=== PATIENT | male | born 1930 | race Caucasian/White ===

== ENCOUNTER 2017-01-14 18:41 | Inpatient (IN) | payer OTHER ==
--- NOTE | 2017-01-14 18:43 | PDOC ---
History of Present Illness - General History Source: EMS Exam Limitations: Dementia, Other - History of Present Illness Initial Comments: 01/14/17 18:47 The patient is a 86 year old male, from [facility], with a significant past medical history of hypertension, UTI, stage 3 chronic kidney disease, DVT, and Alzheimer's dementia who presents to the ED, via EMS, with coffee ground emesis. As per EMS, the patient was found with coffee ground emesis and in respiratory distress. Patient also presents to the ED with a distended abdomen, diaphoresis and is tachycardic. HPI is limited secondary to patients dementia and limited history from EMS and [facility]. <Moses Ordonez - Last Filed: 01/14/17 20:21> <Angelique Lazo - Last Filed: 01/14/17 20:47> - General Stated Complaint: SOB Time Seen by Provider: 01/14/17 18:43 Past History <Moses Ordonez - Last Filed: 01/14/17 20:21> <Angelique Lazo - Last Filed: 01/14/17 20:47> - Past Medical History Allergies/Adverse Reactions: Allergies Allergy/AdvReac Type Severity Reaction Status Date / Time No Known Allergies Allergy Verified 01/14/17 18:43 Home Medications: Ambulatory Orders Acetaminophen [Tylenol] 2 tab GT BID 01/14/17 Heparin - 5,000 unit SQ BID 01/14/17 Magnesium Hydrox 2400MG/30Ml [Milk of Magnesia -] 30 ml GT HS 01/14/17 Mirtazapine [Remeron -] 15 mg GT DAILY 01/14/17 Pantoprazole Sodium [Protonix] 40 mg GT DAILY 01/14/17 Sennosides [Senna] 2 tab GT HS 01/14/17 Zinc Sulfate [Zinc-220] 220 mg GT DAILY 01/14/17 Review of Systems - Review of Systems Able to Perform ROS?: No Comments:: 01/14/17 18:47 Unable to perform ROS secondary to patients dementia. <Moses Ordonez - Last Filed: 01/14/17 20:21> *Physical Exam - Physical Exam Comments: 01/14/17 18:48 GENERAL: + distressed Well developed, well nourished. Awake and alert. HEENT: Normocephalic, atraumatic. PERRLA, EOMI. No conjunctival pallor. Sclera are non- icteric. Moist mucous membranes. Oropharynx is clear. NECK: Supple. Full ROM. No JVD. Carotid pulses 2+ and symmetric, without bruits. No thyromegaly. NCo lymphadenopathy. CARDIOVASCULAR: + tachycardic Regular rhythm. No murmurs, rubs, or gallops. Distal pulses are 2+ and symmetric. PULMONARY: + rales No wheezing or rhonchi. ABDOMINAL:+ distended abdomen, coffee ground emesis. Non-tender. No rebound or guarding. No organomegaly. Normoactive bowel sounds. MUSCULOSKELETAL Normal range of motion at all joints. No bony deformities or tenderness. No CVA tenderness. EXTREMITIES: No cyanosis. No clubbing. No edema. No calf tenderness. SKIN: Warm and dry. Normal capillary refill. No rashes. No jaundice. <Moses Ordonez - Last Filed: 01/14/17 20:21> ED Treatment Course - LABORATORY CBC & Chemistry Diagram: 01/14/17 18:35 01/14/17 18:35 - RADIOLOGY Radiograph Interpretation: 01/14/17 20:21 EXAM: CT abdomen pelvis without contrast Findings: Atelectasis and scarring in lung bases with bronchial wall thickening. No pleural effusions. Large hiatal hernia. A few indeterminate small low attenuation hepatic lesions Subtle edema around the contracted gallbladder. Query cholecystitis? The pancreas, adrenal glands, and spleen are grossly unremarkable. Small splenic granuloma. G-tube in the stomach. Moderate left perinephric edema. No renal or urinary calculi. No AAA. Moya catheter in the bladder. Mild prostate enlargement. *Large left inguinal hernia containing a short segment of nonobstructed colon. Moderate stool in the distal colon and rectum with mild adjacent edema. Query mild stercoral proctocolitis? No evidence of diverticulitis, appendicitis, small bowel obstruction, free fluid , or free air. Reported by: Imaging employment consultant <Moses Ordonez - Last Filed: 01/14/17 20:21> - LABORATORY CBC & Chemistry Diagram: 01/14/17 18:35 01/14/17 18:35 <Angelique Lazo - Last Filed: 01/14/17 20:47> Medical Decision Making - Critical Care Time Total Critical Care Time (minutes): 90 Critical Care Statement: The care of this patient involved high complexity decision making to prevent further life threatening deterioration of the patient 's condition and/or to evaluate & treat vital organ system(s) failure or risk of failure. - Medical Decision Making 01/14/17 19:59 86-year-old male brought in by ambulance from [facility] in acute distress. Patient is tachycardic in the 150s, initially hypotensive. Rectal temp 100.5. Then, nonverbal 86-year-old male in acute distress, diaphoretic, tachypneic and tachycardic + coffee ground emesis , black blood dried on lips Head no signs of acute trauma Eyes macie neck supple lungs +rales cvs tachycardia abd distended, hard distended bladder G tube intact ext no erythema,no edema,no cellulitis neuro alert,nonverbal 01/14/17 20:02 moya placed 1 liter urine obtained cxr no chf evident <Angelique Lazo - Last Filed: 01/14/17 20:47> *DC/Admit/Observation/Transfer - Attestations Scribe Attestion: 01/14/17 18:48 Documentation prepared by Moses Ordonez, acting as medical superintendent for Angelique Lazo MD <Moses Ordonez - Last Filed: 01/14/17 20:21> - Discharge Dispostion Admit: No <Angelique Lazo - Last Filed: 01/14/17 20:47> Diagnosis at time of Disposition: Dehydration, Urinary retention Aspiration pneumonia Qualifiers: Aspiration pneumonia type: unspecified Laterality: right Lung location: lower lobe of lung Qualified Code(s): J69.0 - Pneumonitis due to inhalation of food and vomit GI bleed Qualifiers: GI bleed type/associated pathology: gastrointestinal hemorrhage with hematemesis Qualified Code(s): K92.0 - Hematemesis Constipation Qualifiers: Constipation type: unspecified constipation type Qualified Code(s): K59.00 - Constipation, unspecified - Referrals Referrals: Domo Cortez [Primary Care Provider] -
[2017-01-14] MEDS ORDERED: ONDANSETRON 4 MG/2 ML VIAL IVPUSH ONE (18:45)
[2017-01-14 18:49] VITALS: BMI 16.6
[2017-01-14] MEDS ORDERED: ACETAMINOPHEN INJECTION 100 ML IVPB ONE (18:50)
[2017-01-14] MEDS ORDERED: PANTOPRAZOLE SODIUM 40 MG VIAL IVPUSH ONE (18:56)
[2017-01-14 18:57] LABS: BASOPHIL 0.1 % (0-2.0); MCHC 33.7 g/dl (32.0-35.9); MEAN PLT VOLUME 9.3 fl (7.5-11.1); NEUTROPHILS 82.9 % (42.8-82.8); PLATELET COUNT 395 K/MM3 (134-434); RDW 16.8 % (11.9-15.9); WHITE BLOOD COUNT 19.6 K/mm3 (4.0-10.0)
[2017-01-14] MEDS ORDERED: ONDANSETRON 4 MG/2 ML VIAL ONE (19:01)
[2017-01-14] MEDS ORDERED: PANTOPRAZOLE SODIUM 40 MG/100 ML BAG IVPB ONE (19:01)
[2017-01-14 19:02] LABS: VENOUS PH 7.44 (7.32-7.42)
[2017-01-14 19:03] LABS: VENOUS BLOOD GAS HCO3 23.6 meq/L (19-25)
[2017-01-14 19:14] LABS: URINE APPEARANCE SLCLOUDY; URINE BILIRUBIN NEGATIVE (NEGATIVE); URINE BLOOD NEGATIVE (NEGATIVE); URINE COLOR YELLOW; URINE GLUCOSE (UA) NEGATIVE (NEGATIVE); URINE KETONE NEGATIVE (NEGATIVE); URINE NITRITE NEGATIVE (NEGATIVE); URINE PROTEIN NEGATIVE (NEGATIVE); URINE UROBILINOGEN NEGATIVE mg/dL (0.2-1.0)
[2017-01-14 19:15] LABS: INR 1.12 (0.82-1.09); PROTHROMBIN TIME (PATIENT) 12.7 SEC (9.98-11.88)
[2017-01-14] MEDS ORDERED: VANCOMYCIN 1,000 MG in DEXTROSE 5%-WATER - 500 ML IVPB STA (19:17)
[2017-01-14 19:18] LABS: ACTIVATED PTT 29.8 SECONDS (26.9-34.4)
[2017-01-14] MEDS ORDERED: PIPERACIL/TAZOB 3.375 GM 3.375 GM/50 ML PREMIX IVPB ONE (19:19)
[2017-01-14] MEDS ORDERED: ACETAMINOPHEN 1000 MG/100 ML VIAL (NON FORMULARY) IVPB ONE (19:20)
[2017-01-14 19:26] LABS: ALBUMIN 2.8 g/dl (3.4-5.0); ANION GAP 13 (8-16); BILIRUBIN,TOTAL 0.6 mg/dL (0.2-1.0); CALCIUM 9.4 mg/dL (8.5-10.1); CO2 22 mmol/L (21-32); CREATININE 2.1 mg/dL (0.7-1.3); GLUCOSE,RANDOM 172 mg/dL (74-106); SGOT/AST 24 U/L (15-37); SGPT/ALT 68 U/L (12-78); TOT PROT 6.4 g/dl (6.4-8.2)
[2017-01-14 19:28] LABS: ALK PHOS 158 U/L (45-117); CPK 56 IU/L (39-308)
[2017-01-14 19:38] LABS: ARTERIAL BLOOD GAS BASE EXCESS -0.3 meq/l (-2-2); ARTERIAL BLOOD GAS PO2 74.2 mmHg (68-100); ARTERIAL BLOOD GAS pH 7.48 (7.35-7.45)
[2017-01-14 19:40] LABS: ALLENS TEST POSITIVE; ART PUNCT SITE LEFT RADIAL; LPM/O2% 100%; PT. ON O2? YES
[2017-01-14] MEDS ORDERED: VANCOMYCIN 1 GRAM (PRE-DOCKED) 1,000 MG/250 ML BAG IVPB ONE (19:44)
[2017-01-14] MEDS ORDERED: PIPERACILLIN/TAZOB 3.375 GM 3.375 GM/50 ML BAG IVPB ONE (19:44)
[2017-01-14] MEDS ORDERED: SODIUM CHLORIDE 1,000 ML IV ONE (19:53)
[2017-01-14] MEDS ORDERED: SODIUM CHLORIDE 500 ML IV ONE (20:48)
--- NOTE | 2017-01-14 22:05 | HP ---
CHIEF COMPLAINT: coffe ground emesis PCP: [facility] HISTORY OF PRESENT ILLNESS: This is an 86 year old male resident of [facility] who presented to the ED with a report of coffee ground emesis. Pt was noted to be febrile and tachypneic upon arrival and BP dropped shortly after arrival. Pt appears to be nonverbal, history is limited and obtained from [facility] chart. Discussed with [facility] staff who state patient appeared to be in his usual state of health until he vomited and that precipitated his ED visit. They are unsure when his last BM was and deny any recent cough or other illness. ER course was notable for: (1) WBC 19.8; lactic acid 3.4 (2) SBP dipped into 60s briefly (3) BUN 126,Cr 2.1 Recent Travel: none PAST MEDICAL HISTORY: HTN, HLD, CVA, DVT, CKD st3, BPH, UTI, senile dementia alzheimers type, schizoaffective disorder PAST SURGICAL HISTORY: unknown Social History: Smoking: unk Alcohol: unk Drugs: unk Family History: unk Allergies No Known Allergies Allergy (Verified 01/14/17 18:43) HOME MEDICATIONS: 3 Medication Instructions Recorded Acetaminophen [Tylenol] 2 tab GT BID 01/14/17 Heparin - 5,000 unit SQ BID 01/14/17 Magnesium Hydrox 2400MG/30Ml [Milk 30 ml GT HS 01/14/17 of Magnesia -] Mirtazapine [Remeron -] 15 mg GT DAILY 01/14/17 Pantoprazole Sodium [Protonix] 40 mg GT DAILY 01/14/17 Sennosides [Senna] 2 tab GT HS 01/14/17 Zinc Sulfate [Zinc-220] 220 mg GT DAILY 01/14/17 REVIEW OF SYSTEMS CONSTITUTIONAL: Present: fever Absent: chills, diaphoresis, generalized weakness, malaise, loss of appetite, weight change HEENT: Absent: rhinorrhea, nasal congestion, throat pain, throat swelling, difficulty swallowing, mouth swelling, ear pain, eye pain, visual changes CARDIOVASCULAR: Absent: chest pain, syncope, palpitations, irregular heart rate, lightheadedness , peripheral edema RESPIRATORY: Absent: cough, shortness of breath, dyspnea with exertion, orthopnea, wheezing, stridor, hemoptysis GASTROINTESTINAL: Present: abdominal distension, vomiting Absent: abdominal pain, diarrhea, constipation, melena, hematochezia GENITOURINARY: Absent: dysuria, frequency, urgency, hesitancy, hematuria, flank pain, genital pain MUSCULOSKELETAL: Absent: myalgia, arthralgia, joint swelling, back pain, neck pain SKIN: Absent: rash, itching, pallor HEMATOLOGIC/IMMUNOLOGIC: Absent: easy bleeding, easy bruising, lymphadenopathy, frequent infections ENDOCRINE: Absent: unexplained weight gain, unexplained weight loss, heat intolerance, cold intolerance NEUROLOGIC: Absent: headache, focal weakness or paresthesias, dizziness, unsteady gait, seizure, mental status changes, bladder or bowel incontinence PSYCHIATRIC: Absent: anxiety, depression, suicidal or homicidal ideation, hallucinations. PHYSICAL EXAMINATION Vital Signs - 24 hr 3 01/14/17 01/14/17 01/14/17 01/14/17 18:43 19:04 19:06 19:42 Temperature 100.5 F H 100.7 F H Pulse Rate 154 H 128 H Pulse Rate [ Apical] Respiratory 30 H 36 H Rate Blood Pressure 100/60 65/48 Blood Pressure [Right Arm] O2 Sat by Pulse 100 100 Oximetry (%) 3 01/14/17 01/14/17 01/14/17 19:54 20:22 20:33 21:11 Temperature Pulse Rate Pulse Rate [ 110 H 116 H 125 H 118 H Apical] Respiratory 28 H 32 H 36 H 26 H Rate Blood Pressure Blood Pressure 120/70 94/57 105/65 134/67 [Right Arm] O2 Sat by Pulse 97 93 L 94 L 94 L Oximetry (%) GENERAL: Awake, alert, disoriented, in mild acute distress. picking at clothing HEAD: Normal with no signs of trauma. EYES: Pupils equal, round and reactive to light, extraocular movements intact, sclera anicteric, conjunctiva clear. No lid lag. EARS, NOSE, THROAT: Ears normal, nares patent, oropharynx clear without exudates. Moist mucous membranes. NECK: Normal range of motion, supple without lymphadenopathy, JVD, or masses. old healed surgical scar left neck LUNGS: Breath sounds equal, clear to auscultation bilaterally. No wheezes, and no crackles. No accessory muscle use. HEART: Irregular rate and rhythm, normal S1 and S2 without murmur, rub or gallop. ABDOMEN: Distended, hypoactive bowel sounds, no guarding, no rebound, no masses. No hepatomegaly or splenomegaly. large left inguinal hernia, soft, non tender MUSCULOSKELETAL: Normal range of motion right side, left susannah with elbow, wrist and knee contractures noted. No bony deformities or tenderness. No CVA tenderness. UPPER EXTREMITIES: 2+ pulses, warm, well-perfused. No cyanosis. No clubbing. No peripheral edema. LOWER EXTREMITIES: 2+ pulses, warm, well-perfused. No calf tenderness. No peripheral edema. NEUROLOGICAL: Cranial nerves II-XII intact. Normal speech. Normal gait. PSYCHIATRIC: Uncooperative. mildly combative. SKIN: Warm, dry, normal turgor, no rashes noted, normal capillary refill. stage 1 noted left buttock, small stage 2, linear skin erosion noted in between buttocks. Laboratory Results - last 24 hr 3 01/14/17 01/14/17 01/14/17 18:35 18:35 18:35 WBC 19.6 H RBC 4.51 Hgb 14.0 Hct 41.5 MCV 92.0 MCH 31.0 MCHC 33.7 RDW 16.8 H Plt Count 395 MPV 9.3 Neutrophils % 82.9 H Lymphocytes % 7.8 L Monocytes % 9.2 Eosinophils % 0.0 Basophils % 0.1 PT with INR 12.70 H INR 1.12 PTT (Actin FS) 29.8 Puncture Site ABG pH ABG pCO2 at Pt Temp ABG pO2 at Pt Temp ABG HCO3 ABG O2 Sat (Measured) ABG O2 Content ABG Base Excess Jose Alfredo Test VBG pH 7.44 H POC VBG pCO2 34.9 L POC VBG pO2 42.9 Mixed VBG HCO3 23.6 Oxygen Flow Rate Sodium 140 Potassium 4.4 Chloride 105 Carbon Dioxide 22 Anion Gap 13 BUN 126 H* Creatinine 2.1 H Creat Clearance w eGFR 30.24 Random Glucose 172 H Lactic Acid 3.5 H* Calcium 9.4 Total Bilirubin 0.6 AST 24 ALT 68 Alkaline Phosphatase 158 H Creatine Kinase 56 Troponin I 0.10 H Total Protein 6.4 Albumin 2.8 L Urine Color Urine Appearance Urine pH Ur Specific [place] Urine Protein Urine Glucose (UA) Urine Ketones Urine Blood Urine Nitrite Urine Bilirubin Urine Urobilinogen Stool Occult Blood Blood Type B POSITIVE Antibody Screen Negative 3 01/14/17 01/14/17 01/14/17 18:42 19:04 19:30 WBC RBC Hgb Hct MCV MCH MCHC RDW Plt Count MPV Neutrophils % Lymphocytes % Monocytes % Eosinophils % Basophils % PT with INR INR PTT (Actin FS) Puncture Site Left radial ABG pH 7.48 H ABG pCO2 at Pt Temp 30.3 L ABG pO2 at Pt Temp 74.2 ABG HCO3 22.0 ABG O2 Sat (Measured) 96.0 ABG O2 Content 17.2 ABG Base Excess -0.3 Jose Alfredo Test Positive VBG pH POC VBG pCO2 POC VBG pO2 Mixed VBG HCO3 Oxygen Flow Rate 100% Sodium Potassium Chloride Carbon Dioxide Anion Gap BUN Creatinine Creat Clearance w eGFR Random Glucose Lactic Acid Calcium Total Bilirubin AST ALT Alkaline Phosphatase Creatine Kinase Troponin I Total Protein Albumin Urine Color Yellow Urine Appearance Slcloudy Urine pH 6.0 Ur Specific [place] 1.015 Urine Protein Negative Urine Glucose (UA) Negative Urine Ketones Negative Urine Blood Negative Urine Nitrite Negative Urine Bilirubin Negative Urine Urobilinogen Negative Stool Occult Blood Negative Blood Type Antibody Screen ECG ? afib?, irreg rhythm but rate too fast at present to determine vent rate 152, QTC [address]/T changes Radiology results EXAM: CT abdomen pelvis without contrast THIS IS A PRELIMINARY REPORT FROM [facility] DATE OF EXAM: 2017-01-14 19:08:06 REASON FOR EXAM: Lethargic. Bleed. Concern for dissection. COMPARISON: None Findings: Atelectasis and scarring in lung bases with bronchial wall thickening. No pleural effusions. Large hiatal hernia. A few indeterminate small low attenuation hepatic lesions Subtle edema around the contracted gallbladder. Query cholecystitis? The pancreas, adrenal glands, and spleen are grossly unremarkable. Small splenic granuloma. G-tube in the stomach. Moderate left perinephric edema. No renal or urinary calculi. No AAA. Moya catheter in the bladder. Mild prostate enlargement. *Large left inguinal hernia containing a short segment of nonobstructed colon. Moderate stool in the distal colon and rectum with mild adjacent edema. Query mild stercoral proctocolitis? No evidence of diverticulitis, appendicitis, small bowel obstruction, free fluid , or free air. THIS DOCUMENT HAS BEEN ELECTRONICALLY SIGNED Young Chen MD 01/14/2017 20:17 EST CXR, no apparent infiltrate or effusion, final read pending ASSESSMENT/PLAN: 86yM with PMH HTN, HLD, CVA, DVT, CKD st3, BPH, UTI, senile dementia alzheimers type, schizoaffective disorder presented to the ED s/p one episode coffee ground emesis. Sepsis - likely source urinary, urine very cloudy, await cultures and follow - ? aspiration during emesis - cont vanc and zosyn for now - ID consult - moya for strict I&O - received 1.5L NS in ED, nurse reported BP in 80s upon arrival to floor, 250cc bolus x 1 then 100cc/hr fecal retention - fleet enema x 1, will need manual manipulation if no result with enema - may need tap water enema - start miralax in am after enema - cont home senna, dc home MOM abdominal distention/coffee ground emesis - likely r/t fecal retention - on CT prelim read ? cholecystitis, consider abd sono - stool guaiac neg elevated troponin - likely due to demand/sepsis, will trend - repeat ECG in am HTN/HLD - currently off all meds, monitor BP while inpatient BPH - on no home meds. Monitor for urinary retention when moya DC dementia/alzheimer's - on no home meds, supportive care DVT PPX - deferred for now due to coffee ground emesis FEN - NS @ 100cc/hr - BMP in am - hold GT feed today, start tomorrow PM Dispo: Pt currently requires inpatient cardiac monitoring for management of his emergent condition. Visit type - Emergency Visit Emergency Visit: Yes ED Registration Date: 01/14/17 Care time: The patient presented to the Emergency Department on the above date and was hospitalized for further evaluation of their emergent condition. - New Patient This patient is new to me today: Yes Date on this admission: 01/14/17 - Critical Care Critical Care patient: No
[2017-01-14] MEDS ORDERED: SODIUM CHLORIDE 250 ML IV STA (22:09)
[2017-01-14] MEDS ORDERED: SODIUM PHOSPHATE/NA BIPHOS 133 ML ENEMA PR ONE (22:10)
[2017-01-14] MEDS: SODIUM CHLORIDE 1,000 ML IV SCH (22:19)
[2017-01-14] MEDS ORDERED: POLYETHYLENE GLYCOL 3350 119 GM BTL PO SCH (23:15)
[2017-01-14 23:17] LABS: URINE LEUK ESTERASE Negative (NEGATIVE)
[2017-01-14 23:23] LABS: ANION GAP 11 (8-16); CALCIUM 8.9 mg/dL (8.5-10.1); CO2 26 mmol/L (21-32); CREATININE 1.9 mg/dL (0.7-1.3); GLUCOSE,RANDOM 132 mg/dL (74-106)
[2017-01-14 23:24] LABS: MAGNESIUM 2.4 mg/dL (1.8-2.4)
[2017-01-14 23:25] LABS: PHOSPHOROUS 3.7 mg/dL (2.5-4.9); TROPONIN I 0.1 ng/ml (0.00-0.05)
[2017-01-14] MEDS ORDERED: SODIUM CHLORIDE 1,000 ML IV STA (23:47)
[2017-01-15] MEDS: POLYETHYLENE GLYCOL 3350 119 GM BTL GT SCH ×2 (00:25→09:14)
[2017-01-15] MEDS: PANTOPRAZOLE SODIUM 40 MG VIAL IVPUSH SCH ×2 (00:25→09:23)
[2017-01-15] MEDS ORDERED: PIPERACILLIN/TAZOB 2.25 GM/50 ML PREMIX BAG IVPB ONE (03:00)
[2017-01-15] MEDS ORDERED: PIPERACILLIN/TAZOB 2.25 GM 2.25 GM in DEXTROSE 5%-WATER - 50 ML IVPB ONE (03:45)
[2017-01-15] MEDS: ZINC OXIDE/PANTHENOL/VITAMIN E 56 GM TUBE TP SCH ×3 (05:28→21:07)
[2017-01-15 06:42] LABS: BASOPHIL 0.1 % (0-2.0); MCH 31.2 pg (25.7-33.7); MCHC 33.7 g/dl (32.0-35.9); MEAN CELL VOLUME 92.6 fl (80-96); MEAN PLT VOLUME 9.1 fl (7.5-11.1); NEUTROPHILS 70.5 % (42.8-82.8); PLATELET COUNT 164 K/MM3 (134-434); RDW 16.3 % (11.9-15.9); WHITE BLOOD COUNT 7.4 K/mm3 (4.0-10.0)
[2017-01-15 07:05] LABS: ANION GAP 7 (8-16); CALCIUM 7.6 mg/dL (8.5-10.1); CO2 26 mmol/L (21-32); CREATININE 1.3 mg/dL (0.7-1.3); GLUCOSE,RANDOM 99 mg/dL (74-106)
[2017-01-15 07:09] LABS: CPK 81 IU/L (39-308)
[2017-01-15] MEDS: ZINC SULFATE 220 MG CAPSULE (FP) GT SCH (09:12)
[2017-01-15] MEDS: ACETAMINOPHEN 650 MG/20.3 ML ORAL SOLUTION (CUPS) GT SCH ×2 (09:13→21:06)
--- NOTE | 2017-01-15 09:40 | PN ---
Progress Note, Physician Chief Complaint: Events noted no distress non verbal GT in place - Current Medication List Current Medications: Active Medications Acetaminophen (Tylenol Oral Solution -) 650 mg GT BID [facility] Last Admin: 01/15/17 09:13 Dose: 650 mg Sodium Chloride (Normal Saline -) 1,000 mls @ 100 mls/hr IV ASDIR [facility] Last Admin: 01/14/17 22:19 Dose: 100 mls/hr Mirtazapine (Remeron -) 15 mg GT HS PIPPA Pantoprazole Sodium (Protonix Iv) 40 mg IVPUSH DAILY [facility] Last Admin: 01/15/17 09:23 Dose: 40 mg Polyethylene Glycol (Miralax (For Daily Use) -) 17 gm GT DAILY [facility] Last Admin: 01/15/17 09:14 Dose: 17 grams Senna (Senna Oral Solution -) 17.6 mg GT HS PIPPA Zinc Oxide/Panthenol/Vitamin E (Balmex Cream -) 1 applic TP TID [facility] Last Admin: 01/15/17 05:28 Dose: 1 applic Zinc Sulfate (Orazinc -) 220 mg GT DAILY [facility] Last Admin: 01/15/17 09:12 Dose: 220 mg - Objective Vital Signs: Vital Signs Temperature 99 F 01/15/17 06:00 Pulse Rate 115 H 01/15/17 06:00 Respiratory Rate 20 01/15/17 06:00 Blood Pressure 132/61 01/15/17 06:00 O2 Sat by Pulse Oximetry (%) 100 01/14/17 23:09 Constitutional: Yes: No Distress, Calm Cardiovascular: Yes: Regular Rate and Rhythm Respiratory: Yes: Diminished Gastrointestinal: Yes: Normal Bowel Sounds, Soft, Other (GT+). No: Distention, Tenderness Extremities: Yes: Other (contracted) Edema: No Neurological: Yes: Alert. No: Oriented Labs: CBC, BMP 01/15/17 06:20 01/15/17 06:20 INR, PTT INR 1.12 (0.82-1.09) 01/14/17 18:35 Problem List - Problems (1) Constipation Code(s): K59.00 - CONSTIPATION, UNSPECIFIED Qualifiers: Constipation type: unspecified constipation type Qualified Code(s): K59.00 - Constipation, unspecified (2) Dehydration Code(s): E86.0 - DEHYDRATION (3) GI bleed Code(s): K92.2 - GASTROINTESTINAL HEMORRHAGE, UNSPECIFIED Qualifiers: GI bleed type/associated pathology: gastrointestinal hemorrhage with hematemesis Qualified Code(s): K92.0 - Hematemesis (4) Aspiration pneumonia Code(s): J69.0 - PNEUMONITIS DUE TO INHALATION OF FOOD AND VOMIT Qualifiers: Aspiration pneumonia type: unspecified Laterality: right Lung location: lower lobe of lung Qualified Code(s): J69.0 - Pneumonitis due to inhalation of food and vomit Assessment/Plan PLAN iv fluids restart feeds GIU and ID eval IV antibiotics enemas as ordered check FUA tomorrow DVT prophylaxis-- SCD
--- NOTE | 2017-01-15 12:25 | PN ---
Progress Note (short form) - Note Progress Note: ID consult dictated 86 y/o male admitted from ID with hematemesis, resp distress Diaphoretic, tachycardic, hypotensive in ER WBC 19K Sepsis several potential sources:GI/, possible aspiration pneumonia Pending sepsis workup, empiric Zosyn
[2017-01-15] MEDS ORDERED: PIPERACILLIN/TAZOB 2.25 GM 2.25 GM/50 ML BAG IVPB SCH (12:45)
--- NOTE | 2017-01-15 12:47 | EKG ---
Test Reason : Blood Pressure : / mmHG Vent. Rate : 107 BPM Atrial Rate : 107 BPM P-R Int : 176 ms QRS Dur : 102 ms QT Int : 348 ms P-R-T Axes : 079 -34 121 degrees QTc Int : 464 ms SINUS TACHYCARDIA WITH PREMATURE ATRIAL COMPLEXES WITH ABERRANT CONDUCTION LEFT AXIS DEVIATION ABNORMAL ECG WHEN COMPARED WITH ECG OF 15-JAN-2017 04:14, ABERRANT CONDUCTION IS NOW PRESENT T WAVE INVERSION LESS EVIDENT IN LATERAL LEADS Confirmed by VENKAT LARSON, TICO ([id number]) on 01/15/2017 12:47:15 PM Referred By: Confirmed By:TICO ROBLEDO MD
--- NOTE | 2017-01-15 13:14 | CONS ---
DATE OF CONSULTATION: HISTORY: The patient is an 86-year-old [facility] resident who was evaluated for sepsis. History was obtained from the chart as he cannot give a history secondary to his mental status. He was transferred to the emergency room from the [facility] after he developed hematemesis and respiratory distress. In the emergency room, the patient was diaphoretic, tachycardic, and hypotensive with a distended abdomen. He was found to have a markedly elevated white blood cell count of 19,000 and lactic acid level of 3.5. CAT scan abdomen and pelvis showed scarring at the lung bases bilaterally as well as nonspecific edema involving the gallbladder, the rectal area as well as left perinephric stranding. He was empirically treated with Zosyn and vancomycin after blood cultures were obtained. He cannot give a history secondary to dementia. No reports of shaking chills, cough, sputum production, diarrhea, or grossly purulent urine. PAST MEDICAL HISTORY: Positive for dementia, hypertension, chronic kidney disease, DVT, BPH, hyperlipidemia. ALLERGIES: No known allergies. MEDICATIONS: At the present time include Tylenol, Remeron, Zosyn. SOCIAL HISTORY: He is a [facility] resident. He is dependent in activities of daily living. No active tobacco or alcohol use. SYSTEMS REVIEW: Neurologic: Positive for dementia. No loss of consciousness, seizure activity, or focal weakness. Cardiac: Negative chest pain or palpitations. Respiratory: As per HPI. Gastrointestinal: As per HPI. Genitourinary: Negative for urinary tract infection. LABORATORY DATA: White count on admission 19.6, presently 7.4, hematocrit 28.3, 164, BUN 95, creatinine 1.3. Urinalysis negative. Chest x-ray: No focal consolidation. CAT scan as described. PHYSICAL EXAMINATION: General: He is awake. He is not verbally responsive. Breathing is not labored. Vital Signs: Temperature 97, blood pressure 107/61, pulse 102, regular, respirations 20 per minute, T-max 100.7. HEENT: Sclerae anicteric. Heart: Sounds S1, S2. Lungs: Diminished breath sounds bilaterally. Abdomen: Soft. No tenderness elicited. There is a feeding gastrostomy tube. No mass, rebound, or rigidity. Extremities: Have 1+ edema. IMPRESSION: An 86-year-old male admitted from the [facility] with hematemesis and respiratory distress now with sepsis syndrome including diaphoresis, hypotension, tachycardic, leukocytosis, lactic acidosis. Several potential sources for infection in this patient including gastrointestinal/genitourinary, possible acute biliary tract disease versus infectious colitis of the rectum (possible left pyelonephritis). In addition, cannot rule out an aspiration pneumonia secondary to his hematemesis and altered mental status. PLAN: Await sepsis workup, empiric antibiotic coverage with Zosyn adjusted for his chronic kidney disease. Aspiration pneumonia. We will follow. Thank you for the kind referral. TI GRIFFITHS M.D. [id number]
--- NOTE | 2017-01-15 13:26 | EKG ---
Test Reason : Blood Pressure : / mmHG Vent. Rate : 152 BPM Atrial Rate : 153 BPM P-R Int : 000 ms QRS Dur : 088 ms QT Int : 268 ms P-R-T Axes : 000 -39 112 degrees QTc Int : 426 ms UNDETERMINED RHYTHM , PROBABLE ATRIAL FIBRILLATION WITH RAPID VENTRICULAR RESPONSE LEFT AXIS DEVIATION ANTERIOR INFARCT , AGE UNDETERMINED ABNORMAL ECG NO PREVIOUS ECGS AVAILABLE Confirmed by TICO ROBLEDO MD ([id number]) on 01/15/2017 1:26:13 PM Referred By: Confirmed By:TICO ROBLEDO MD
[2017-01-15] MEDS: PIPERACILLIN/TAZOB 2.25 GM 2.25 GM in DEXTROSE 5%-WATER - 50 ML IVPB SCH ×2 (14:44→17:37)
--- NOTE | 2017-01-15 19:44 | CON.GI ---
Consult Consult Specialty:: gastroenterology Referred by:: Dr Elena Perez Reason for Consultation:: Hematemesis - History of Present Illness History of Present Illness: 86 y/o male from [facility], s/p PEG insertion was transferrrd because of coffee ground vomitius associted with leukocytosis of 19,000. At present he is not in distress and receiving antibiotics - Alcohol/Substance Use Hx Alcohol Use: No - Smoking History Smoking history: Unknown if ever smoked Have you smoked in the past 12 months: No Home Medications - Allergies Allergies/Adverse Reactions: Allergies Allergy/AdvReac Type Severity Reaction Status Date / Time No Known Allergies Allergy Verified 01/14/17 18:43 - Home Medications Home Medications: Ambulatory Orders Acetaminophen [Tylenol] 2 tab GT BID 01/14/17 Heparin - 5,000 unit SQ BID 01/14/17 Magnesium Hydrox 2400MG/30Ml [Milk of Magnesia -] 30 ml GT HS 01/14/17 Mirtazapine [Remeron -] 15 mg GT DAILY 01/14/17 Pantoprazole Sodium [Protonix] 40 mg GT DAILY 01/14/17 Sennosides [Senna] 2 tab GT HS 01/14/17 Zinc Sulfate [Zinc-220] 220 mg GT DAILY 01/14/17 Review of Systems Unable to obtain ROS, reason: non-verbal Physical Exam-GI Vital Signs: Vital Signs Temperature 98.3 F 01/15/17 17:00 Pulse Rate 105 H 01/15/17 17:00 Respiratory Rate 20 01/15/17 17:00 Blood Pressure 98/59 01/15/17 17:00 O2 Sat by Pulse Oximetry (%) 100 01/15/17 09:00 Constitutional: Yes: Well Nourished Eyes: Yes: Conjunctiva Clear HENT: Yes: Atraumatic Neck: Yes: Supple Cardiovascular: Yes: Regular Rate and Rhythm Respiratory: Yes: CTA Bilaterally Gastrointestinal Inspection: Yes: Other (-g-tube in place). No: Distention ...Auscultate: Yes: Normoactive Bowel Sounds ...Palpate: Yes: Pulsatile Mass, Soft. No: Firm/Rigid, Guarding, Hepatomegaly, Mass, Splenomegaly, Tenderness, Tenderness, Epigastium Labs: CBC, BMP 01/15/17 06:20 01/15/17 06:20 INR, PTT INR 1.12 (0.82-1.09) 01/14/17 18:35 Imaging - Results Cat Scan: Report Reviewed Problem List - Problems (1) GI bleed Assessment/Plan: associated with fecal impaction and aspiration pnuemonia. This most likely secondary to stress gastritis. R> fleet enemas as torlerates start tap water via g-tube in am Omeprazole 40 mg pocket via g-tube for 4 weeks then switch to H2 blockers then 5mg tid via g-tube IV Reglan 10mg q 8 hours no planned endoscopy at this time Code(s): K92.2 - GASTROINTESTINAL HEMORRHAGE, UNSPECIFIED Qualifiers: GI bleed type/associated pathology: gastrointestinal hemorrhage with hematemesis Qualified Code(s): K92.0 - Hematemesis
[2017-01-15] MEDS: SODIUM PHOSPHATE/NA BIPHOS 133 ML ENEMA PR SCH ×2 (19:45→23:50)
[2017-01-15] MEDS ORDERED: PT OWN MED DRAWER 7, Y5N ONE (20:44)
[2017-01-15] MEDS: MIRTAZAPINE 15 MG TABLET (FP) GT SCH (21:06)
[2017-01-15] MEDS: METOCLOPRAMIDE HCL INJECTION 10 MG/2 ML VIAL IVPB SCH (21:07)
[2017-01-15] MEDS: SENNOSIDES 8.8 MG/5 ML BULK BOTTLE GT SCH (21:15)
[2017-01-15] MEDS: SODIUM CHLORIDE 1,000 ML IV SCH (22:47)
[2017-01-16] MEDS ORDERED: PT OWN MED DRAWER 7, Y5N ONE ×2 (02:12→16:38)
[2017-01-16] MEDS: METOCLOPRAMIDE HCL INJECTION 10 MG/2 ML VIAL IVPB SCH ×3 (02:33→17:36)
[2017-01-16] MEDS: PIPERACILLIN/TAZOB 2.25 GM 2.25 GM in DEXTROSE 5%-WATER - 50 ML IVPB SCH ×3 (02:33→17:36)
[2017-01-16] MEDS: SODIUM PHOSPHATE/NA BIPHOS 133 ML ENEMA PR SCH (03:50)
[2017-01-16] MEDS: ZINC OXIDE/PANTHENOL/VITAMIN E 56 GM TUBE TP SCH ×3 (06:12→22:31)
[2017-01-16 07:32] LABS: BASOPHIL 0.2 % (0-2.0); EOSINOPHIL 0.6 % (0-4.5); MCH 31.7 pg (25.7-33.7); MEAN CELL VOLUME 93.1 fl (80-96); MEAN PLT VOLUME 8.5 fl (7.5-11.1); NEUTROPHILS 64.6 % (42.8-82.8); PLATELET COUNT 147 K/MM3 (134-434); RDW 16.1 % (11.9-15.9); WHITE BLOOD COUNT 4.5 K/mm3 (4.0-10.0)
[2017-01-16 08:16] LABS: ALK PHOS 94 U/L (45-117); ANION GAP 8 (8-16); BILIRUBIN,TOTAL 0.2 mg/dL (0.2-1.0); CALCIUM 8.2 mg/dL (8.5-10.1); CO2 26 mmol/L (21-32); CREATININE 0.8 mg/dL (0.7-1.3); GLUCOSE,RANDOM 113 mg/dL (74-106); SGOT/AST 29 U/L (15-37); SGPT/ALT 39 U/L (12-78); TOT PROT 4.5 g/dl (6.4-8.2)
[2017-01-16] MEDS: PANTOPRAZOLE SODIUM 40 MG VIAL IVPUSH SCH (09:16)
[2017-01-16] MEDS: ACETAMINOPHEN 650 MG/20.3 ML ORAL SOLUTION (CUPS) GT SCH ×2 (09:16→22:28)
[2017-01-16] MEDS: ZINC SULFATE 220 MG CAPSULE (FP) GT SCH (09:16)
[2017-01-16] MEDS: POLYETHYLENE GLYCOL 3350 119 GM BTL GT SCH (09:17)
[2017-01-16] MEDS ORDERED: POTASSIUM CHLORIDE ORAL LIQUID 20 MEQ/15 ML GT ONE (10:12)
[2017-01-16] MEDS: SODIUM CHLORIDE 0.45% 1,000 ML IV SCH (10:45)
--- NOTE | 2017-01-16 11:22 | PN ---
Progress Note, Physician Chief Complaint: no distress non verbal GT in place - Current Medication List Current Medications: Active Medications Acetaminophen (Tylenol Oral Solution -) 650 mg GT BID [facility] Last Admin: 01/16/17 09:16 Dose: 650 mg Piperacillin Sod/Tazobactam (Sod 2.25 gm/ Dextrose) 50 mls @ 100 mls/hr IVPB Q8H-IV [facility] Last Admin: 01/16/17 09:17 Dose: 100 mls/hr Sodium Chloride (1/2 Normal Saline) 1,000 mls @ 100 mls/hr IV ASDIR [facility] Last Admin: 01/16/17 10:45 Dose: 100 mls/hr Metoclopramide HCl (Reglan Injection -) 10 mg IVPB Q8H-IV [facility] Last Admin: 01/16/17 09:16 Dose: 10 mg Mirtazapine (Remeron -) 15 mg GT HS [facility] Last Admin: 01/15/17 21:06 Dose: 15 mg Pantoprazole Sodium (Protonix Iv) 40 mg IVPUSH DAILY [facility] Last Admin: 01/16/17 09:16 Dose: 40 mg Polyethylene Glycol (Miralax (For Daily Use) -) 17 gm GT DAILY [facility] Last Admin: 01/16/17 09:17 Dose: 17 grams Senna (Senna Oral Solution -) 17.6 mg GT HS [facility] Last Admin: 01/15/17 21:15 Dose: 17.6 units Zinc Oxide/Panthenol/Vitamin E (Balmex Cream -) 1 applic TP TID [facility] Last Admin: 01/16/17 06:12 Dose: 1 applic Zinc Sulfate (Orazinc -) 220 mg GT DAILY [facility] Last Admin: 01/16/17 09:16 Dose: 220 mg - Objective Vital Signs: Vital Signs Temperature 98.8 F 01/16/17 10:00 Pulse Rate 98 H 01/16/17 10:00 Respiratory Rate 20 01/16/17 10:00 Blood Pressure 112/69 01/16/17 10:00 O2 Sat by Pulse Oximetry (%) 100 01/15/17 09:00 Constitutional: Yes: No Distress Cardiovascular: Yes: Regular Rate and Rhythm Respiratory: Yes: Diminished Gastrointestinal: Yes: Normal Bowel Sounds, Soft, Abdomen, Obese, Other (gt+). No: Distention, Tenderness Edema: No Labs: CBC, BMP 01/16/17 05:22 12/05/17 05:22 INR, PTT INR 1.12 (0.82-1.09) 01/14/17 18:35 Problem List - Problems (1) Constipation Code(s): K59.00 - CONSTIPATION, UNSPECIFIED Qualifiers: Constipation type: unspecified constipation type Qualified Code(s): K59.00 - Constipation, unspecified (2) Dehydration Code(s): E86.0 - DEHYDRATION (3) GI bleed Code(s): K92.2 - GASTROINTESTINAL HEMORRHAGE, UNSPECIFIED Qualifiers: GI bleed type/associated pathology: gastrointestinal hemorrhage with hematemesis Qualified Code(s): K92.0 - Hematemesis (4) Aspiration pneumonia Code(s): J69.0 - PNEUMONITIS DUE TO INHALATION OF FOOD AND VOMIT Qualifiers: Aspiration pneumonia type: unspecified Laterality: right Lung location: lower lobe of lung Qualified Code(s): J69.0 - Pneumonitis due to inhalation of food and vomit Assessment/Plan PLAN iv fluids tolerating feeds GI and ID eval noted IV antibiotics enemas as ordered check FUA today DVT prophylaxis-- SCD no further GI bleeding monitor CBC replace potassium change iv fluids due to hypernatremia
--- NOTE | 2017-01-16 16:55 | PN ---
Progress Note, Physician History of Present Illness: More awake and alert No acute distress Breathing non-labored Afebrile WBC improved - WNL BC no growth - Current Medication List Current Medications: Active Medications Acetaminophen (Tylenol Oral Solution -) 650 mg GT BID [facility] Last Admin: 01/16/17 09:16 Dose: 650 mg Piperacillin Sod/Tazobactam (Sod 2.25 gm/ Dextrose) 50 mls @ 100 mls/hr IVPB Q8H-IV [facility] Last Admin: 01/16/17 09:17 Dose: 100 mls/hr Sodium Chloride (1/2 Normal Saline) 1,000 mls @ 100 mls/hr IV [facility] Last Admin: 01/16/17 10:45 Dose: 100 mls/hr Metoclopramide HCl (Reglan Injection -) 10 mg IVPB Q8H-IV [facility] Last Admin: 01/16/17 09:16 Dose: 10 mg Mirtazapine (Remeron -) 15 mg GT HS [facility] Last Admin: 01/15/17 21:06 Dose: 15 mg Pantoprazole Sodium (Protonix Iv) 40 mg IVPUSH DAILY [facility] Last Admin: 01/16/17 09:16 Dose: 40 mg Polyethylene Glycol (Miralax (For Daily Use) -) 17 gm GT DAILY [facility] Last Admin: 01/16/17 09:17 Dose: 17 grams Senna (Senna Oral Solution -) 17.6 mg GT HS [facility] Last Admin: 01/15/17 21:15 Dose: 17.6 units Zinc Oxide/Panthenol/Vitamin E (Balmex Cream -) 1 applic TP TID [facility] Last Admin: 01/16/17 14:56 Dose: 1 applic Zinc Sulfate (Orazinc -) 220 mg GT DAILY [facility] Last Admin: 01/16/17 09:16 Dose: 220 mg - Objective Vital Signs: Vital Signs Temperature 99.2 F 01/16/17 14:40 Pulse Rate 95 H 01/16/17 14:40 Respiratory Rate 18 01/16/17 14:40 Blood Pressure 135/65 01/16/17 14:40 O2 Sat by Pulse Oximetry (%) 100 01/15/17 09:00 Constitutional: Yes: No Distress Eyes: Yes: Conjunctiva Clear Cardiovascular: Yes: Regular Rate and Rhythm, S1, S2 Respiratory: Yes: Diminished Gastrointestinal: Yes: Normal Bowel Sounds, Soft, Abdomen, Obese. No: Tenderness Edema: Yes Labs: CBC, BMP 01/16/17 05:22 01/16/17 05:22 INR, PTT INR 1.12 (0.82-1.09) 01/14/17 18:35 Assessment/Plan S/P hematemesis Possible aspiration pneumonia Fever/ leukocytosis- improved Continue empiric zosyn
[2017-01-16] MEDS: SENNOSIDES 8.8 MG/5 ML BULK BOTTLE GT SCH (22:31)
[2017-01-16] MEDS: MIRTAZAPINE 15 MG TABLET (FP) GT SCH (22:35)
[2017-01-16 23:53] LABS: URINE APPEARANCE SLCLOUDY; URINE BILIRUBIN NEGATIVE (NEGATIVE); URINE BLOOD 2+ (NEGATIVE); URINE COLOR YELLOW; URINE GLUCOSE (UA) NEGATIVE (NEGATIVE); URINE KETONE NEGATIVE (NEGATIVE); URINE NITRITE NEGATIVE (NEGATIVE); URINE UROBILINOGEN 4.0 E.U/dl mg/dL (0.2-1.0)
[2017-01-17 00:12] LABS: URINE PROTEIN 1+ (NEGATIVE)
[2017-01-17 00:59] LABS: CALCIUM OXALATE CRYSTALS RARE /hpf (NONE SEEN); URINE MUCUS RARE; URINE RBC 62 /hpf (0-3); URINE WBC 37 /hpf (3-5)
[2017-01-17] MEDS ORDERED: PT OWN MED DRAWER 7, Y5N ONE ×3 (03:01→21:18)
[2017-01-17] MEDS: METOCLOPRAMIDE HCL INJECTION 10 MG/2 ML VIAL IVPB SCH ×3 (03:06→17:27)
[2017-01-17] MEDS: PIPERACILLIN/TAZOB 2.25 GM 2.25 GM in DEXTROSE 5%-WATER - 50 ML IVPB SCH ×3 (03:06→17:27)
[2017-01-17] MEDS: ZINC OXIDE/PANTHENOL/VITAMIN E 56 GM TUBE TP SCH ×3 (06:20→21:19)
[2017-01-17 07:15] LABS: BASOPHIL 0.5 % (0-2.0); EOSINOPHIL 5.4 % (0-4.5); MCH 31.1 pg (25.7-33.7); MCHC 33.5 g/dl (32.0-35.9); MEAN PLT VOLUME 9.1 fl (7.5-11.1); NEUTROPHILS 55.2 % (42.8-82.8); PLATELET COUNT 144 K/MM3 (134-434); RDW 15.7 % (11.9-15.9); WHITE BLOOD COUNT 4.6 K/mm3 (4.0-10.0)
[2017-01-17 07:53] LABS: ALBUMIN 1.8 g/dl (3.4-5.0); ALK PHOS 104 U/L (45-117); ANION GAP 6 (8-16); BILIRUBIN,TOTAL 0.4 mg/dL (0.2-1.0); CALCIUM 7.4 mg/dL (8.5-10.1); CO2 27 mmol/L (21-32); CREATININE 0.6 mg/dL (0.7-1.3); GLUCOSE,RANDOM 88 mg/dL (74-106); SGOT/AST 25 U/L (15-37); SGPT/ALT 33 U/L (12-78); TOT PROT 4.3 g/dl (6.4-8.2)
[2017-01-17] MEDS: ZINC SULFATE 220 MG CAPSULE (FP) GT SCH (09:14)
[2017-01-17] MEDS: ACETAMINOPHEN 650 MG/20.3 ML ORAL SOLUTION (CUPS) GT SCH ×2 (09:14→21:15)
[2017-01-17] MEDS: PANTOPRAZOLE SODIUM 40 MG VIAL IVPUSH SCH (09:15)
[2017-01-17] MEDS: POLYETHYLENE GLYCOL 3350 119 GM BTL GT SCH (09:15)
[2017-01-17 12:31] LABS: URINE LEUK ESTERASE 1+ (NEGATIVE)
[2017-01-17] MEDS: SODIUM CHLORIDE 0.45% 1,000 ML IV SCH (13:05)
--- NOTE | 2017-01-17 17:55 | PN ---
Progress Note (short form) - Note Progress Note: pt seen/ examined. chart reviewed. awake/ comfortable afebrile Vital Signs Temp 98.3 F 01/17/17 13:19 Pulse 62 01/17/17 13:19 Resp 18 01/17/17 13:19 BP 115/60 01/17/17 13:19 Pulse Ox 100 01/15/17 09:00 Intake & Output 01/16/17 01/17/17 01/17/17 23:59 11:59 23:59 Intake Total 1200 1650 Output Total 1300 600 350 Balance -100 1050 -350 Intake: IV 300 1100 1/2 Normal Saline 1,410 229 3996 ml @ 100 mls/hr IV [facility] Rx#:[id number] IVPB 100 50 Tube Feeding 500 250 Tube Irrigant 300 250 Output: Urine 1300 600 350 Cole 1300 600 350 Other: Voiding Method Incontinent Indwelling Catheter # Unmeasured Voids Cole 1 Bowel Movement Yes: Small No Active Medications Acetaminophen (Tylenol Oral Solution -) 650 mg GT BID [facility] Last Admin: 01/17/17 09:14 Dose: 650 mg Piperacillin Sod/Tazobactam (Sod 2.25 gm/ Dextrose) 50 mls @ 100 mls/hr IVPB Q8H-IV [facility] Last Admin: 01/17/17 17:27 Dose: 100 mls/hr Sodium Chloride (1/2 Normal Saline) 1,000 mls @ 100 mls/hr IV [facility] Last Admin: 01/17/17 13:05 Dose: 100 mls/hr Metoclopramide HCl (Reglan Injection -) 10 mg IVPB Q8H-IV [facility] Last Admin: 01/17/17 17:27 Dose: 10 mg Mirtazapine (Remeron -) 15 mg GT HS [facility] Last Admin: 01/16/17 22:35 Dose: 15 mg Pantoprazole Sodium (Protonix Iv) 40 mg IVPUSH DAILY [facility] Last Admin: 01/17/17 09:15 Dose: 40 mg Polyethylene Glycol (Miralax (For Daily Use) -) 17 gm GT DAILY [facility] Last Admin: 01/17/17 09:15 Dose: 17 grams Senna (Senna Oral Solution -) 17.6 mg GT HS [facility] Last Admin: 01/16/17 22:31 Dose: 17.6 units Zinc Oxide/Panthenol/Vitamin E (Balmex Cream -) 1 applic TP TID [facility] Last Admin: 01/17/17 13:05 Dose: 1 applic Zinc Sulfate (Orazinc -) 220 mg GT DAILY [facility] Last Admin: 01/17/17 09:14 Dose: 220 mg CBC, BMP 01/17/17 06:45 01/17/17 06:45 Physical Exam. Constitutional: Yes: No Distress/ awake/comfortable. Cardiovascular: Yes: Regular Rate and Rhythm Respiratory: Yes: Diminished at bases. Gastrointestinal: Yes: Normal Bowel Sounds, Soft, Abdomen, Obese, Other (gt+). No: Distention, Tenderness Edema: No Problem List - Problems (1) Constipation Code(s): K59.00 - CONSTIPATION, UNSPECIFIED Qualifiers: Constipation type: unspecified constipation type Qualified Code(s): K59.00 - Constipation, unspecified (2) Dehydration Code(s): E86.0 - DEHYDRATION (3) GI bleed Code(s): K92.2 - GASTROINTESTINAL HEMORRHAGE, UNSPECIFIED Qualifiers: GI bleed type/associated pathology: gastrointestinal hemorrhage with hematemesis Qualified Code(s): K92.0 - Hematemesis (4) Aspiration pneumonia Code(s): J69.0 - PNEUMONITIS DUE TO INHALATION OF FOOD AND VOMIT Qualifiers: Aspiration pneumonia type: unspecified Laterality: right Lung location: lower lobe of lung Qualified Code(s): J69.0 - Pneumonitis due to inhalation of food and vomit Assessment/Plan clinically stable abx monitor lytes meds reviewed will follow.
[2017-01-17] MEDS ORDERED: POTASSIUM CHLORIDE ORAL LIQUID 20 MEQ/15 ML GT ONE (19:30)
[2017-01-17] MEDS: MIRTAZAPINE 15 MG TABLET (FP) GT SCH (21:16)
[2017-01-17] MEDS: SENNOSIDES 8.8 MG/5 ML BULK BOTTLE GT SCH (21:19)
[2017-01-18] MEDS ORDERED: PT OWN MED DRAWER 7, Y5N ONE ×2 (01:34→08:50)
[2017-01-18] MEDS: METOCLOPRAMIDE HCL INJECTION 10 MG/2 ML VIAL IVPB SCH ×3 (01:36→17:33)
[2017-01-18] MEDS: PIPERACILLIN/TAZOB 2.25 GM 2.25 GM in DEXTROSE 5%-WATER - 50 ML IVPB SCH ×2 (01:37→09:29)
[2017-01-18] MEDS: ZINC OXIDE/PANTHENOL/VITAMIN E 56 GM TUBE TP SCH ×3 (05:45→21:42)
[2017-01-18 07:35] LABS: BASOPHIL 0.7 % (0-2.0); EOSINOPHIL 8.9 % (0-4.5); MEAN CELL VOLUME 91.3 fl (80-96); MEAN PLT VOLUME 8.6 fl (7.5-11.1); NEUTROPHILS 61.1 % (42.8-82.8); PLATELET COUNT 189 K/MM3 (134-434); RDW 15.7 % (11.9-15.9); WHITE BLOOD COUNT 5.8 K/mm3 (4.0-10.0)
--- NOTE | 2017-01-18 08:47 | PN ---
Progress Note (short form) - Note Progress Note: awake and comfortable. No distress. Afebrile. Cultures negative so far Vital Signs Temp 98.8 F 01/18/17 08:36 Pulse 89 01/18/17 08:36 Resp 20 01/18/17 08:36 BP 138/74 01/18/17 08:36 Pulse Ox 100 01/15/17 09:00 Intake & Output 01/17/17 01/17/17 01/18/17 11:59 23:59 11:59 Intake Total 1650 1100 1450 Output Total 600 1550 1800 Balance 1050 -450 -350 Intake: IV 1100 1100 900 1/2 Normal Saline 1,000 1100 1100 900 ml @ 100 mls/hr IV [facility] Rx#:[id number] IVPB 50 50 Tube Feeding 250 250 Tube Irrigant 250 250 Output: Urine 600 1550 1800 Cole 600 1550 1800 Other: Voiding Method Indwelling Catheter Indwelling Catheter Indwelling Catheter # Unmeasured Voids Ocle 1 Bowel Movement No Active Medications Acetaminophen (Tylenol Oral Solution -) 650 mg GT BID [facility] Last Admin: 01/17/17 21:15 Dose: 650 mg Piperacillin Sod/Tazobactam (Sod 2.25 gm/ Dextrose) 50 mls @ 100 mls/hr IVPB Q8H-IV [facility] Last Admin: 01/18/17 01:37 Dose: 100 mls/hr Sodium Chloride (1/2 Normal Saline) 1,000 mls @ 100 mls/hr IV [facility] Last Admin: 01/17/17 13:05 Dose: 100 mls/hr Metoclopramide HCl (Reglan Injection -) 10 mg IVPB Q8H-IV [facility] Last Admin: 01/18/17 01:36 Dose: 10 mg Mirtazapine (Remeron -) 15 mg GT HS [facility] Last Admin: 01/17/17 21:16 Dose: 15 mg Pantoprazole Sodium (Protonix Iv) 40 mg IVPUSH DAILY [facility] Last Admin: 01/17/17 09:15 Dose: 40 mg Polyethylene Glycol (Miralax (For Daily Use) -) 17 gm GT DAILY [facility] Last Admin: 01/17/17 09:15 Dose: 17 grams Senna (Senna Oral Solution -) 17.6 mg GT HS [facility] Last Admin: 01/17/17 21:19 Dose: 17.6 units Zinc Oxide/Panthenol/Vitamin E (Balmex Cream -) 1 applic TP TID [facility] Last Admin: 01/18/17 05:45 Dose: 1 applic Zinc Sulfate (Orazinc -) 220 mg GT DAILY [facility] Last Admin: 01/17/17 09:14 Dose: 220 mg CBC, BMP 01/18/17 07:05 bmp- pending. Physical Exam. Constitutional: Yes: No Distress/ awake/comfortable. Cardiovascular: Yes: Regular Rate and Rhythm Respiratory: Yes: Diminished at bases. Gastrointestinal: Yes: Normal Bowel Sounds, Soft, Abdomen, Obese, Other (gt+). No: Distention, Tenderness Edema: No. neuro---awake Problem List - Problems (1) Constipation Code(s): K59.00 - CONSTIPATION, UNSPECIFIED Qualifiers: Constipation type: unspecified constipation type Qualified Code(s): K59.00 - Constipation, unspecified (2) Dehydration Code(s): E86.0 - DEHYDRATION (3) GI bleed Code(s): K92.2 - GASTROINTESTINAL HEMORRHAGE, UNSPECIFIED Qualifiers: GI bleed type/associated pathology: gastrointestinal hemorrhage with hematemesis Qualified Code(s): K92.0 - Hematemesis (4) Aspiration pneumonia Code(s): J69.0 - PNEUMONITIS DUE TO INHALATION OF FOOD AND VOMIT Qualifiers: Aspiration pneumonia type: unspecified Laterality: right Lung location: lower lobe of lung Qualified Code(s): J69.0 - Pneumonitis due to inhalation of food and vomit Assessment/Plan clinically stable. looks well. Tolerating feeding. Discontinue fluids abx per ID. Cultures negative. Should be able to switch to by mouth by tomorrow. monitor lytes discharge planning. Can DC telemetry. will follow. discussed with nursing staff.
[2017-01-18 09:00] LABS: ALBUMIN 2.1 g/dl (3.4-5.0); ALK PHOS 117 U/L (45-117); ANION GAP 9 (8-16); BILIRUBIN,TOTAL 0.4 mg/dL (0.2-1.0); CALCIUM 7.9 mg/dL (8.5-10.1); CO2 25 mmol/L (21-32); CREATININE 0.6 mg/dL (0.7-1.3); GLUCOSE,RANDOM 93 mg/dL (74-106); SGOT/AST 18 U/L (15-37); SGPT/ALT 31 U/L (12-78)
[2017-01-18] MEDS: ACETAMINOPHEN 650 MG/20.3 ML ORAL SOLUTION (CUPS) GT SCH ×2 (09:30→21:43)
[2017-01-18] MEDS: ZINC SULFATE 220 MG CAPSULE (FP) GT SCH (09:30)
[2017-01-18] MEDS: PANTOPRAZOLE SODIUM 40 MG VIAL IVPUSH SCH (09:35)
[2017-01-18] MEDS: POLYETHYLENE GLYCOL 3350 119 GM BTL GT SCH (13:07)
--- NOTE | 2017-01-18 14:32 | PN ---
Progress Note, Physician History of Present Illness: awake and alert No acute distress Breathing non-labored Afebrile WBC WNL BC no growth - Current Medication List Current Medications: Active Medications Acetaminophen (Tylenol Oral Solution -) 650 mg GT BID [facility] Last Admin: 01/18/17 09:30 Dose: 650 mg Piperacillin Sod/Tazobactam (Sod 2.25 gm/ Dextrose) 50 mls @ 100 mls/hr IVPB Q8H-IV [facility] Last Admin: 01/18/17 09:29 Dose: 100 mls/hr Metoclopramide HCl (Reglan Injection -) 10 mg IVPB Q8H-IV [facility] Last Admin: 01/18/17 09:32 Dose: 10 mg Mirtazapine (Remeron -) 15 mg GT HS [facility] Last Admin: 01/17/17 21:16 Dose: 15 mg Pantoprazole Sodium (Protonix Iv) 40 mg IVPUSH DAILY [facility] Last Admin: 01/18/17 09:35 Dose: 40 mg Polyethylene Glycol (Miralax (For Daily Use) -) 17 gm GT DAILY [facility] Last Admin: 01/18/17 13:07 Dose: Not Given Senna (Senna Oral Solution -) 17.6 mg GT HS [facility] Last Admin: 01/17/17 21:19 Dose: 17.6 units Zinc Oxide/Panthenol/Vitamin E (Balmex Cream -) 1 applic TP TID [facility] Last Admin: 01/18/17 05:45 Dose: 1 applic Zinc Sulfate (Orazinc -) 220 mg GT DAILY [facility] Last Admin: 01/18/17 09:30 Dose: 220 mg - Objective Vital Signs: Vital Signs Temperature 98.8 F 01/18/17 08:36 Pulse Rate 89 01/18/17 08:36 Respiratory Rate 20 01/18/17 08:36 Blood Pressure 138/74 01/18/17 08:36 O2 Sat by Pulse Oximetry (%) 100 01/15/17 09:00 Constitutional: Yes: No Distress Eyes: Yes: Conjunctiva Clear Cardiovascular: Yes: Regular Rate and Rhythm, S1, S2 Respiratory: Yes: Diminished Gastrointestinal: Yes: Normal Bowel Sounds, Soft, Abdomen, Obese. No: Tenderness Edema: Yes Labs: CBC, BMP 01/18/17 07:05 01/18/17 07:05 INR, PTT INR 1.12 (0.82-1.09) 01/14/17 18:35 Assessment/Plan S/P hematemesis Possible aspiration pneumonia Fever/ leukocytosis- resolved Substitute po Augmentin x 48h
[2017-01-18] MEDS: AMOX TR/POTASSIUM CLAVULANATE 250 MG/5 ML BOTTLE PO SCH (17:32)
[2017-01-18 19:39] LABS: MCH 31.2 pg (25.7-33.7); MCHC 34.1 g/dl (32.0-35.9); MEAN CELL VOLUME 91.3 fl (80-96); MEAN PLT VOLUME 8.4 fl (7.5-11.1); PLATELET COUNT 207 K/MM3 (134-434); RDW 15.7 % (11.9-15.9); WHITE BLOOD COUNT 6.3 K/mm3 (4.0-10.0)
[2017-01-18] MEDS: MIRTAZAPINE 15 MG TABLET (FP) GT SCH (21:42)
[2017-01-18] MEDS: SENNOSIDES 8.8 MG/5 ML BULK BOTTLE GT SCH (21:42)
[2017-01-19] MEDS: METOCLOPRAMIDE HCL INJECTION 10 MG/2 ML VIAL IVPB SCH ×3 (02:36→17:11)
[2017-01-19] MEDS: ZINC OXIDE/PANTHENOL/VITAMIN E 56 GM TUBE TP SCH ×3 (06:23→21:50)
[2017-01-19] MEDS ORDERED: TAMSULOSIN HCL 0.4 MG CAP.ER.24H (FP) PO SCH (08:30)
--- NOTE | 2017-01-19 09:28 | DS ---
Physical Examination Vital Signs: Vital Signs Temperature 99.2 F 01/19/17 08:46 Pulse Rate 97 H 01/19/17 08:46 Respiratory Rate 20 01/19/17 08:46 Blood Pressure 156/96 01/19/17 08:46 O2 Sat by Pulse Oximetry (%) 100 01/15/17 09:00 Labs: CBC, BMP 01/18/17 18:00 01/18/17 07:05 Discharge Summary Reason For Visit: ASPIRATION PNEMONIA, DEHYRATION Current Active Problems Aspiration pneumonia (Acute) Constipation (Acute) Dehydration (Acute) GI bleed (Acute) Urinary retention (Acute) - Instructions Referrals: Domo Cortez [Primary Care Provider] - - Home Medications Comprehensive Discharge Medication List: Ambulatory Orders Acetaminophen [Tylenol] 2 tab GT BID 01/14/17 Heparin - 5,000 unit SQ BID 01/14/17 Magnesium Hydrox 2400MG/30Ml [Milk of Magnesia -] 30 ml GT HS 01/14/17 Mirtazapine [Remeron -] 15 mg GT DAILY 01/14/17 Pantoprazole Sodium [Protonix] 40 mg GT DAILY 01/14/17 Sennosides [Senna] 2 tab GT HS 01/14/17 Zinc Sulfate [Zinc-220] 220 mg GT DAILY 01/14/17 Amox-Tr/K Cl [Augmentin Suspension -] 250 mg PO BID@0800,1730 #4 ml 01/19/17 Polyethylene Glycol 3350 [Miralax 119 gm Btl -] 17 gm GT DAILY bottle 01/19/17 Zinc Oxide/Panthenol/Vitamin E [Balmex Cream -] 1 applic TP TID tube 01/19/17
--- NOTE | 2017-01-19 09:42 | CON.CARD ---
Consult Consult Specialty:: Cardiology Referred by:: Corine Ferreira MD Reason for Consultation:: Arrhythmia - History of Present Illness Chief Complaint: UGI bleed History of Present Illness: 86 y/o male from [facility] h/o HTN, HLD, CVA, DVT, BPH, UTI, senile dementia alzheimers type, schizoaffective disorder non-verbal s/p PEG insertion admitted for coffee ground emesis associated with leukocytosis, fever and tachypnea since improved with abx course, episode of 12 beat PSVT earlier this AM, can't convey symptoms. - History Source History Provided By: Medical Record Limitations to Obtaining History: Dementia - Alcohol/Substance Use Hx Alcohol Use: No - Smoking History Smoking history: Unknown if ever smoked Have you smoked in the past 12 months: No Home Medications - Allergies Allergies/Adverse Reactions: Allergies Allergy/AdvReac Type Severity Reaction Status Date / Time No Known Allergies Allergy Verified 01/14/17 18:43 - Home Medications Home Medications: Ambulatory Orders Acetaminophen [Tylenol] 2 tab GT BID 01/14/17 Heparin - 5,000 unit SQ BID 01/14/17 Mirtazapine [Remeron -] 15 mg GT DAILY 01/14/17 Pantoprazole Sodium [Protonix] 40 mg GT DAILY 01/14/17 Sennosides [Senna] 2 tab GT HS 01/14/17 Zinc Sulfate [Zinc-220] 220 mg GT DAILY 01/14/17 Amox-Tr/K Cl [Augmentin Suspension -] 250 mg PO BID@0800,1730 #4 ml 01/19/17 Magnesium Hydrox 2400MG/30Ml [Milk of Magnesia -] 30 ml GT HS #0 5ml 01/19/17 Polyethylene Glycol 3350 [Miralax 119 gm Btl -] 17 gm GT DAILY bottle 01/19/17 Zinc Oxide/Panthenol/Vitamin E [Balmex Cream -] 1 applic TP TID tube 01/19/17 Review of Systems Unable to obtain ROS, reason: Dementia, non-verbal Vital Signs: Vital Signs Temperature 99.2 F 01/19/17 08:46 Pulse Rate 97 H 01/19/17 08:46 Respiratory Rate 20 01/19/17 08:46 Blood Pressure 156/96 01/19/17 08:46 O2 Sat by Pulse Oximetry (%) 100 01/15/17 09:00 Constitutional: Yes: No Distress, Calm Neck: Yes: Supple Respiratory: Yes: Regular, Diminished Gastrointestinal: Yes: Normal Bowel Sounds, Soft, Other (Peg in place) Cardiovascular: Yes: Regular Rate and Rhythm JVD: No Carotid Bruit: No Heart Sounds: Yes: S1, S2 Edema: No - Other Data Labs, Other Data: CBC, BMP 01/18/17 18:00 01/18/17 07:05 INR, PTT INR 1.12 (0.82-1.09) 01/14/17 18:35 ST @ 107 PAC LAD Tele: 12 beat run PSVT Imaging - Results Chest X-ray: Report Reviewed (NAD) Problem List - Problems (1) Stress ulcer of stomach Code(s): K25.9 - GASTRIC ULCER, UNSP ACUTE OR CHRONIC, W/O HEMOR OR PERF (2) Dementia Code(s): F03.90 - UNSPECIFIED DEMENTIA WITHOUT BEHAVIORAL DISTURBANCE Qualifiers: Dementia type: Alzheimer's disease Alzheimer's disease onset: unspecified onset Dementia behavioral disturbance: without behavioral disturbance Qualified Code(s): G30.9 - Alzheimer's disease, unspecified; F02.80 - Dementia in other diseases classified elsewhere without behavioral disturbance; F02.80 - Dementia in other diseases classified elsewhere without behavioral disturbance; F02.80 - Dementia in other diseases classified elsewhere without behavioral disturbance (3) Paroxysmal supraventricular tachycardia 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 Code(s): I47.1 - SUPRAVENTRICULAR TACHYCARDIA (4) Aspiration pneumonia Code(s): J69.0 - PNEUMONITIS DUE TO INHALATION OF FOOD AND VOMIT Qualifiers: Aspiration pneumonia type: unspecified Laterality: right Lung location: lower lobe of lung Qualified Code(s): J69.0 - Pneumonitis due to inhalation of food and vomit (5) GI bleed Code(s): K92.2 - GASTROINTESTINAL HEMORRHAGE, UNSPECIFIED Qualifiers: GI bleed type/associated pathology: gastrointestinal hemorrhage with hematemesis Qualified Code(s): K92.0 - Hematemesis (6) Urinary retention Code(s): R33.9 - RETENTION OF URINE, UNSPECIFIED Assessment/Plan 1. Paroxysmal supraventricular tachycardia - NSR 2. S/P hematemesis referable to stress gastritis with possible aspiration pneumonia 3. HTN 4. Dementia post PEG 5. Urinary retention P: 1. Start Lopressor 25 bid, echo to assess ventricular and valve fxn 2. Check electrolytes and replete as needed, TSH 3. Complete abx course, DVT and GI prophylaxis, moya 4. Thank you for consultative opportunity
--- NOTE | 2017-01-19 09:48 | PN ---
Progress Note (short form) - Note Progress Note: patient seen and examined today. Comfortable. No new issues Low-grade temperature. ID follow-up noted Patient has a run of PSVT earlier today Patient unable to convey symptoms Vital Signs Temp 99.2 F 01/19/17 08:46 Pulse 97 H 01/19/17 08:46 Resp 20 01/19/17 08:46 BP 156/96 01/19/17 08:46 Pulse Ox 100 01/15/17 09:00 Intake & Output 01/18/17 01/18/17 01/19/17 11:59 23:59 11:59 Intake Total 1173 097 4152 Output Total 1800 2500 650 Balance -350 -1625 730 Intake: IV 900 700 20 1/2 Normal Saline 1,000 900 700 ml @ 100 mls/hr IV ASDIR PIPPA Rx#:[id number] SALINE LOCK 20 IVPB 50 110 100 Tube Feeding 250 55 660 Tube Irrigant 250 10 600 Output: Urine 1800 2500 650 Cole 1800 2500 650 Other: Voiding Method Indwelling Catheter Indwelling Catheter Indwelling Catheter Bowel Movement No No Active Medications Acetaminophen (Tylenol Oral Solution -) 650 mg GT BID [facility] Last Admin: 01/18/17 21:43 Dose: 650 mg Amoxicillin/Clavulanate Potassium (Augmentin 250 Mg/5 Ml Oral Suspension -) 250 mg PO BID@0800,1730 [facility] Last Admin: 01/18/17 17:32 Dose: 250 mg Metoclopramide HCl (Reglan Injection -) 10 mg IVPB Q8H-IV [facility] Last Admin: 01/19/17 02:36 Dose: 10 mg Mirtazapine (Remeron -) 15 mg GT HS [facility] Last Admin: 01/18/17 21:42 Dose: 15 mg Pantoprazole Sodium (Protonix Iv) 40 mg IVPUSH DAILY [facility] Last Admin: 01/18/17 09:35 Dose: 40 mg Polyethylene Glycol (Miralax (For Daily Use) -) 17 gm GT DAILY [facility] Last Admin: 01/18/17 13:07 Dose: Not Given Senna (Senna Oral Solution -) 17.6 mg GT HS [facility] Last Admin: 01/18/17 21:42 Dose: 17.6 mg Zinc Oxide/Panthenol/Vitamin E (Balmex Cream -) 1 applic TP TID [facility] Last Admin: 01/19/17 06:23 Dose: 1 applic Zinc Sulfate (Orazinc -) 220 mg GT DAILY [facility] Last Admin: 01/18/17 09:30 Dose: 220 mg CBC, BMP 01/18/17 18:00 01/18/17 07:05 Physical Exam. Constitutional: Yes: No Distress/ awake/comfortable. Cardiovascular: Yes: Regular Rate and Rhythm Respiratory: Yes: Diminished at bases. Gastrointestinal: Yes: Normal Bowel Sounds, Soft, Abdomen, Obese, Other (gt+). No: Distention, Tenderness Edema: No. neuro---awake. Cole present Problem List - Problems (1) Constipation Code(s): K59.00 - CONSTIPATION, UNSPECIFIED Qualifiers: Constipation type: unspecified constipation type Qualified Code(s): K59.00 - Constipation, unspecified (2) Dehydration Code(s): E86.0 - DEHYDRATION (3) GI bleed Code(s): K92.2 - GASTROINTESTINAL HEMORRHAGE, UNSPECIFIED Qualifiers: GI bleed type/associated pathology: gastrointestinal hemorrhage with hematemesis Qualified Code(s): K92.0 - Hematemesis (4) Aspiration pneumonia Code(s): J69.0 - PNEUMONITIS DUE TO INHALATION OF FOOD AND VOMIT Qualifiers: Aspiration pneumonia type: unspecified Laterality: right Lung location: lower lobe of lung Qualified Code(s): J69.0 - Pneumonitis due to inhalation of food and vomit Assessment/Plan clinically stable. looks well. Tolerating feeding. abx per ID.--po now Cultures negative. run of PSVT. Patient unable to convey symptoms Will ask cardiology to evaluate--may need beta andi and echo Discussed with --will see the patient. monitor lytes discussed with nursing staff. patient also has Cole--- was removed 2 days ago--- had 2 placed back due to urinary retention and it was difficult. Will start on Flomax. Will ask for urology to evaluate Will request DC Cole in the morning--- 4 voiding trial. Will follow.
[2017-01-19] MEDS: ZINC SULFATE 220 MG CAPSULE (FP) GT SCH (09:51)
[2017-01-19] MEDS: AMOX TR/POTASSIUM CLAVULANATE 250 MG/5 ML BOTTLE PO SCH ×2 (09:51→17:12)
[2017-01-19] MEDS: ACETAMINOPHEN 650 MG/20.3 ML ORAL SOLUTION (CUPS) GT SCH ×2 (09:51→21:49)
[2017-01-19] MEDS: PANTOPRAZOLE SODIUM 40 MG VIAL IVPUSH SCH (09:52)
[2017-01-19] MEDS: POLYETHYLENE GLYCOL 3350 119 GM BTL GT SCH (10:30)
[2017-01-19] MEDS: METOPROLOL TARTRATE 25 MG TABLET (FP) PEG SCH ×2 (11:00→21:47)
[2017-01-19 11:52] LABS: ANION GAP 8 (8-16); CALCIUM 7.6 mg/dL (8.5-10.1); CO2 25 mmol/L (21-32); CREATININE 0.7 mg/dL (0.7-1.3); GLUCOSE,RANDOM 125 mg/dL (74-106)
[2017-01-19] MEDS: MIRTAZAPINE 15 MG TABLET (FP) GT SCH (21:47)
[2017-01-19] MEDS: SENNOSIDES 8.8 MG/5 ML BULK BOTTLE GT SCH (21:48)
[2017-01-19] MEDS: DOXAZOSIN MESYLATE 4 MG TABLET GT SCH (22:00)
[2017-01-20] MEDS: METOCLOPRAMIDE HCL INJECTION 10 MG/2 ML VIAL IVPB SCH ×3 (01:13→17:18)
[2017-01-20] MEDS: ZINC OXIDE/PANTHENOL/VITAMIN E 56 GM TUBE TP SCH ×3 (05:56→22:47)
--- NOTE | 2017-01-20 08:39 | CON.GU ---
Consult - History of Present Illness History of Present Illness: 86 yo male, [place] resident admitted with hematemasis and pneumonia. Noted to be in urinary retention. Flomax recently started. Moya removed 8 hrs ago, diaper dry. Bladder scan reading >200cc - Alcohol/Substance Use Hx Alcohol Use: No - Smoking History Smoking history: Unknown if ever smoked Have you smoked in the past 12 months: No Home Medications - Allergies Allergies/Adverse Reactions: Allergies Allergy/AdvReac Type Severity Reaction Status Date / Time No Known Allergies Allergy Verified 01/14/17 18:43 - Home Medications Home Medications: Ambulatory Orders Acetaminophen [Tylenol] 2 tab GT BID 01/14/17 Heparin - 5,000 unit SQ BID 01/14/17 Mirtazapine [Remeron -] 15 mg GT DAILY 01/14/17 Pantoprazole Sodium [Protonix] 40 mg GT DAILY 01/14/17 Sennosides [Senna] 2 tab GT HS 01/14/17 Zinc Sulfate [Zinc-220] 220 mg GT DAILY 01/14/17 Amox-Tr/K Cl [Augmentin Suspension -] 250 mg PO BID@0800,1730 #4 ml 01/19/17 Magnesium Hydrox 2400MG/30Ml [Milk of Magnesia -] 30 ml GT HS #0 5ml 01/19/17 Polyethylene Glycol 3350 [Miralax 119 gm Btl -] 17 gm GT DAILY bottle 01/19/17 Zinc Oxide/Panthenol/Vitamin E [Balmex Cream -] 1 applic TP TID tube 01/19/17 Physical Exam- Vital Signs: Vital Signs Temperature 98.9 F 01/20/17 05:40 Pulse Rate 90 01/20/17 05:40 Respiratory Rate 20 01/20/17 05:40 Blood Pressure 98/47 01/20/17 05:40 O2 Sat by Pulse Oximetry (%) 98 01/19/17 21:00 Labs: CBC, BMP 01/18/17 18:00 01/19/17 11:00 Problem List - Problems (1) Urinary retention Assessment/Plan: will reinsert moya Code(s): R33.9 - RETENTION OF URINE, UNSPECIFIED
--- NOTE | 2017-01-20 08:46 | PN ---
Progress Note, Physician History of Present Illness: Short bursts of PSVT, urinary retention treated with moya insertion. Non- verbal. - Current Medication List Current Medications: Active Medications Acetaminophen (Tylenol Oral Solution -) 650 mg GT BID [facility] Last Admin: 01/19/17 21:49 Dose: 650 mg Amoxicillin/Clavulanate Potassium (Augmentin 250 Mg/5 Ml Oral Suspension -) 250 mg PO BID@0800,1730 [facility] Last Admin: 01/19/17 17:12 Dose: 250 mg Doxazosin Mesylate (Cardura -) 4 mg GT DAILY [facility] Last Admin: 01/19/17 22:00 Dose: 4 mg Metoclopramide HCl (Reglan Injection -) 10 mg IVPB Q8H-IV [facility] Last Admin: 01/20/17 01:13 Dose: 10 mg Metoprolol Tartrate (Lopressor -) 25 mg PEG BID [facility] Last Admin: 01/19/17 21:47 Dose: 25 mg Mirtazapine (Remeron -) 15 mg GT HS [facility] Last Admin: 01/19/17 21:47 Dose: 15 mg Pantoprazole Sodium (Protonix Iv) 40 mg IVPUSH DAILY [facility] Last Admin: 01/19/17 09:52 Dose: 40 mg Polyethylene Glycol (Miralax (For Daily Use) -) 17 gm GT DAILY [facility] Last Admin: 01/19/17 10:30 Dose: Not Given Senna (Senna Oral Solution -) 17.6 mg GT HS [facility] Last Admin: 01/19/17 21:48 Dose: 17.6 mg Zinc Oxide/Panthenol/Vitamin E (Balmex Cream -) 1 applic TP TID [facility] Last Admin: 01/20/17 05:56 Dose: 1 applic Zinc Sulfate (Orazinc -) 220 mg GT DAILY [facility] Last Admin: 01/19/17 09:51 Dose: 220 mg - Objective Vital Signs: Vital Signs Temperature 98.9 F 01/20/17 05:40 Pulse Rate 90 01/20/17 05:40 Respiratory Rate 20 01/20/17 05:40 Blood Pressure 98/47 01/20/17 05:40 O2 Sat by Pulse Oximetry (%) 98 01/19/17 21:00 Constitutional: Yes: No Distress, Calm Neck: Yes: Supple Cardiovascular: Yes: Regular Rate and Rhythm Respiratory: Yes: Regular, CTA Bilaterally Gastrointestinal: Yes: Normal Bowel Sounds, Soft Edema: No Labs: CBC, BMP 01/18/17 18:00 01/19/17 11:00 INR, PTT INR 1.12 (0.82-1.09) 01/14/17 18:35 - ....Imaging EKG: Report Reviewed (Tele: PSVT) Problem List - Problems (1) Stress ulcer of stomach Code(s): K25.9 - GASTRIC ULCER, UNSP ACUTE OR CHRONIC, W/O HEMOR OR PERF (2) Dementia Code(s): F03.90 - UNSPECIFIED DEMENTIA WITHOUT BEHAVIORAL DISTURBANCE Qualifiers: Dementia type: Alzheimer's disease Alzheimer's disease onset: unspecified onset Dementia behavioral disturbance: without behavioral disturbance Qualified Code(s): G30.9 - Alzheimer's disease, unspecified; F02.80 - Dementia in other diseases classified elsewhere without behavioral disturbance; F02.80 - Dementia in other diseases classified elsewhere without behavioral disturbance; F02.80 - Dementia in other diseases classified elsewhere without behavioral disturbance (3) Paroxysmal supraventricular tachycardia seen on doughnut dough mixer Code(s): I47.1 - SUPRAVENTRICULAR TACHYCARDIA (4) Aspiration pneumonia Code(s): J69.0 - PNEUMONITIS DUE TO INHALATION OF FOOD AND VOMIT Qualifiers: Aspiration pneumonia type: unspecified Laterality: right Lung location: lower lobe of lung Qualified Code(s): J69.0 - Pneumonitis due to inhalation of food and vomit (5) GI bleed Code(s): K92.2 - GASTROINTESTINAL HEMORRHAGE, UNSPECIFIED Qualifiers: GI bleed type/associated pathology: gastrointestinal hemorrhage with hematemesis Qualified Code(s): K92.0 - Hematemesis (6) Urinary retention Code(s): R33.9 - RETENTION OF URINE, UNSPECIFIED Assessment/Plan 1. Paroxysmal supraventricular tachycardia - NSR 2. S/P hematemesis referable to stress gastritis with possible aspiration pneumonia 3. HTN 4. Dementia post PEG 5. Urinary retention P: 1. Continue Lopressor 25 bid 2. Check electrolytes and replete as needed, TSH 3. Complete abx course, DVT and GI prophylaxis, moya
[2017-01-20] MEDS ORDERED: PT OWN MED DRAWER 7, Y5N ONE ×4 (10:28→22:47)
[2017-01-20] MEDS: AMOX TR/POTASSIUM CLAVULANATE 250 MG/5 ML BOTTLE PO SCH ×2 (10:44→17:19)
[2017-01-20] MEDS: DOXAZOSIN MESYLATE 4 MG TABLET GT SCH (10:45)
[2017-01-20] MEDS: ZINC SULFATE 220 MG CAPSULE (FP) GT SCH (10:46)
[2017-01-20] MEDS: POLYETHYLENE GLYCOL 3350 119 GM BTL GT SCH (10:46)
[2017-01-20] MEDS: PANTOPRAZOLE SODIUM 40 MG VIAL IVPUSH SCH (10:46)
[2017-01-20] MEDS: METOPROLOL TARTRATE 25 MG TABLET (FP) PEG SCH ×2 (10:46→22:45)
[2017-01-20] MEDS: ACETAMINOPHEN 650 MG/20.3 ML ORAL SOLUTION (CUPS) GT SCH ×2 (10:47→22:44)
--- NOTE | 2017-01-20 11:12 | DS ---
Physical Examination Vital Signs: Vital Signs Temperature 98.9 F 01/20/17 05:40 Pulse Rate 90 01/20/17 05:40 Respiratory Rate 20 01/20/17 05:40 Blood Pressure 98/47 01/20/17 05:40 O2 Sat by Pulse Oximetry (%) 98 01/19/17 21:00 Constitutional: Yes: No Distress, Calm Eyes: Yes: Conjunctiva Clear Neck: Yes: Supple Cardiovascular: Yes: Regular Rate and Rhythm Respiratory: Yes: CTA Bilaterally, Diminished Gastrointestinal: Yes: Normal Bowel Sounds, Soft Renal/: Yes: Moya Present Edema: No Neurological: Yes: Alert Psychiatric: Yes: Alert Labs: CBC, BMP 01/18/17 18:00 01/19/17 11:00 Discharge Summary Reason For Visit: ASPIRATION PNEMONIA, DEHYRATION Current Active Problems Aspiration pneumonia (Acute) Constipation (Acute) Dehydration (Acute) Dementia (Acute) GI bleed (Acute) Paroxysmal supraventricular tachycardia seen on residential monitor (Acute) Stress ulcer of stomach (Acute) Urinary retention (Acute) Hospital Course: This is an 86 year old male resident of [facility] who presented to the ED with a report of coffee ground emesis. Pt was noted to be febrile and tachypneic upon arrival and BP dropped shortly after arrival. Pt appears to be nonverbal, history is limited and obtained from [facility]. Discussed with [facility] staff who state patient appeared to be in his usual state of health until he vomited pt admitted to tel possible aspiration pneumonia gi / i/d followed treated with abx no gi procedure done/ needed echo- essentially ok got better hospital course complicated with short run of psvt-- cardiology consult taken started on b blockers also urology consult taken for urinary retention started on cardura moya to stay in for now outpt urology/ f/u will discharge today. discussed with nursing staff bp also checked now- 140/84 labs ordered for today - will check before discharge. meds reconcilled will follow in [facility] d/c time 35 min in examining / documenting and coordating care, Condition: Stable - Instructions Referrals: Domo Cortez [Primary Care Provider] - Disposition: [facility]ILITY - Home Medications Comprehensive Discharge Medication List: Ambulatory Orders Acetaminophen [Tylenol] 2 tab GT BID 01/14/17 Heparin - 5,000 unit SQ BID 01/14/17 Mirtazapine [Remeron -] 15 mg GT DAILY 01/14/17 Pantoprazole Sodium [Protonix] 40 mg GT DAILY 01/14/17 Sennosides [Senna] 2 tab GT HS 01/14/17 Zinc Sulfate [Zinc-220] 220 mg GT DAILY 01/14/17 Amox-Tr/K Cl [Augmentin Suspension -] 250 mg PO BID@0800,1730 #4 ml 01/19/17 Magnesium Hydrox 2400MG/30Ml [Milk of Magnesia -] 30 ml GT HS #0 5ml 01/19/17 Polyethylene Glycol 3350 [Miralax 119 gm Btl -] 17 gm GT DAILY bottle 01/19/17 Zinc Oxide/Panthenol/Vitamin E [Balmex Cream -] 1 applic TP TID tube 01/19/17 Doxazosin Mesylate [Cardura -] 4 mg GT DAILY tablet 01/20/17 Metoprolol Tartrate [Lopressor -] 25 mg PEG BID tablet 01/20/17
[2017-01-20 11:55] LABS: BASOPHIL 0.3 % (0-2.0); EOSINOPHIL 6.3 % (0-4.5); MCH 30.9 pg (25.7-33.7); MEAN CELL VOLUME 90.9 fl (80-96); MEAN PLT VOLUME 8.1 fl (7.5-11.1); NEUTROPHILS 68.2 % (42.8-82.8); PLATELET COUNT 222 K/MM3 (134-434); RDW 15.6 % (11.9-15.9); WHITE BLOOD COUNT 5.9 K/mm3 (4.0-10.0)
[2017-01-20 12:20] LABS: ALBUMIN 1.9 g/dl (3.4-5.0); ALK PHOS 131 U/L (45-117); ANION GAP 7 (8-16); BILIRUBIN,TOTAL 0.2 mg/dL (0.2-1.0); CALCIUM 7.8 mg/dL (8.5-10.1); CO2 27 mmol/L (21-32); CREATININE 0.7 mg/dL (0.7-1.3); GLUCOSE,RANDOM 120 mg/dL (74-106); SGOT/AST 7 U/L (15-37); SGPT/ALT 20 U/L (12-78); TOT PROT 4.7 g/dl (6.4-8.2)
[2017-01-20] MEDS: SENNOSIDES 8.8 MG/5 ML BULK BOTTLE GT SCH (22:45)
[2017-01-20] MEDS: MIRTAZAPINE 15 MG TABLET (FP) GT SCH (22:45)
[2017-01-21] MEDS: METOCLOPRAMIDE HCL INJECTION 10 MG/2 ML VIAL IVPB SCH ×2 (01:43→10:35)
[2017-01-21] MEDS: ZINC OXIDE/PANTHENOL/VITAMIN E 56 GM TUBE TP SCH (06:04)
[2017-01-21] MEDS: ZINC SULFATE 220 MG CAPSULE (FP) GT SCH (10:35)
[2017-01-21] MEDS: ACETAMINOPHEN 650 MG/20.3 ML ORAL SOLUTION (CUPS) GT SCH (10:35)
[2017-01-21] MEDS: DOXAZOSIN MESYLATE 4 MG TABLET GT SCH (10:36)
[2017-01-21] MEDS: POLYETHYLENE GLYCOL 3350 119 GM BTL GT SCH (10:36)
[2017-01-21] MEDS: PANTOPRAZOLE SODIUM 40 MG VIAL IVPUSH SCH (10:36)
[2017-01-21] MEDS: METOPROLOL TARTRATE 25 MG TABLET (FP) PEG SCH (10:36)
[2017-01-21] MEDS: AMOX TR/POTASSIUM CLAVULANATE 250 MG/5 ML BOTTLE PO SCH (10:37)
--- NOTE | 2017-01-21 12:20 | PN ---
Progress Note (short form) - Note Progress Note: comfortable no new issues awaiting [facility] at [facility]-- was cleared for discharge yesterday. Vital Signs Temp 98.7 F 01/21/17 05:47 Pulse 99 H 01/21/17 05:47 Resp 20 01/21/17 05:47 BP 150/66 01/21/17 05:47 Pulse Ox 97 01/20/17 21:00 Intake & Output 01/20/17 01/21/17 01/21/17 23:59 11:59 23:59 Intake Total 1260 1380 Output Total 1000 700 Balance 260 680 Intake: IV 20 SALINE LOCK 20 IVPB 100 Tube Feeding 660 660 Tube Irrigant 600 600 Output: Urine 1000 700 Cole 1000 700 Other: Voiding Method Indwelling Catheter Indwelling Catheter # Unmeasured Voids Cole 1 Active Medications Acetaminophen (Tylenol Oral Solution -) 650 mg GT BID [facility] Last Admin: 01/21/17 10:35 Dose: 650 mg Amoxicillin/Clavulanate Potassium (Augmentin 250 Mg/5 Ml Oral Suspension -) 250 mg PO BID@0800,1730 [facility] Last Admin: 01/21/17 10:37 Dose: 250 mg Doxazosin Mesylate (Cardura -) 4 mg GT DAILY [facility] Last Admin: 01/21/17 10:36 Dose: 4 mg Metoclopramide HCl (Reglan Injection -) 10 mg IVPB Q8H-IV [facility] Last Admin: 01/21/17 10:35 Dose: 10 mg Metoprolol Tartrate (Lopressor -) 25 mg PEG BID [facility] Last Admin: 01/21/17 10:36 Dose: 25 mg Mirtazapine (Remeron -) 15 mg GT HS [facility] Last Admin: 01/20/17 22:45 Dose: 15 mg Pantoprazole Sodium (Protonix Iv) 40 mg IVPUSH DAILY [facility] Last Admin: 01/21/17 10:36 Dose: 40 mg Polyethylene Glycol (Miralax (For Daily Use) -) 17 gm GT DAILY [facility] Last Admin: 01/21/17 10:36 Dose: 17 grams Senna (Senna Oral Solution -) 17.6 mg GT HS [facility] Last Admin: 01/20/17 22:45 Dose: 17.6 mg Zinc Oxide/Panthenol/Vitamin E (Balmex Cream -) 1 applic TP TID [facility] Last Admin: 01/21/17 06:04 Dose: 1 applic Zinc Sulfate (Orazinc -) 220 mg GT DAILY [facility] Last Admin: 01/21/17 10:35 Dose: 220 mg CBC, BMP 01/20/17 11:29 01/20/17 11:29 Physical Exam. Constitutional: Yes: No Distress/ awake/comfortable. Cardiovascular: Yes: Regular Rate and Rhythm. Respiratory: Yes: Diminished at bases. Gastrointestinal: Yes: Normal Bowel Sounds, Soft, Abdomen, Obese, Other (gt+). No: Distention, Tenderness Edema: No neuro---awake. Cole present Problem List - Problems (1) Constipation Code(s): K59.00 - CONSTIPATION, UNSPECIFIED Qualifiers: Constipation type: unspecified constipation type Qualified Code(s): K59.00 - Constipation, unspecified (2) Dehydration Code(s): E86.0 - DEHYDRATION (3) GI bleed Code(s): K92.2 - GASTROINTESTINAL HEMORRHAGE, UNSPECIFIED Qualifiers: GI bleed type/associated pathology: gastrointestinal hemorrhage with hematemesis Qualified Code(s): K92.0 - Hematemesis (4) Aspiration pneumonia Code(s): J69.0 - PNEUMONITIS DUE TO INHALATION OF FOOD AND VOMIT Qualifiers: Aspiration pneumonia type: unspecified Laterality: right Lung location: lower lobe of lung Qualified Code(s): J69.0 - Pneumonitis due to inhalation of food and vomit Assessment/Plan clinically stable. same care anticipate d/c today discussed with nursing staff
[2017-01-21 12:44] VITALS: BP 153/78; PULSE 103; TEMP 98.3
--- NOTE | 2017-01-22 15:13 | EKG ---
Test Reason : Blood Pressure : / mmHG Vent. Rate : 112 BPM Atrial Rate : 112 BPM P-R Int : 176 ms QRS Dur : 098 ms QT Int : 350 ms P-R-T Axes : 108 -46 138 degrees QTc Int : 477 ms SINUS TACHYCARDIA LEFT ANTERIOR FASCICULAR BLOCK ANTERIOR INFARCT (CITED ON OR BEFORE 14-JAN-2017) ABNORMAL ECG WHEN COMPARED WITH ECG OF 14-JAN-2017 18:42, SINUS TACHYCARDIA APPEARS TO HAVE REPLACED ATRIAL FIBRILLATION VENT. RATE HAS DECREASED Confirmed by TICO ROBLEDO MD ([id number]) on 01/22/2017 3:12:30 PM Referred By: Confirmed By:TICO ROBLEDO MD
== END 2017-01-21 15:26 | DRG 871 ==
LOC: JER 18:41 → JERBED 20:28 → J4W 21:57
PROVIDERS: ADMIT Internal Medicine; ATTEND Internal Medicine
DX: A41.9 Sepsis, unspecified organism (principal); J69.0 Pneumonitis due to inhalation of food and vomit; K92.0 Hematemesis; I47.1 Supraventricular tachycardia; E87.0 Hyperosmolality and hypernatremia; E87.2 Acidosis; K59.00 Constipation, unspecified; E86.0 Dehydration; G30.9 Alzheimer's disease, unspecified; F02.80 Dementia in other diseases classified elsewhere, unspecified severity, without behavioral disturbance, psychotic disturbance, mood disturbance, and anxiety; R33.9 Retention of urine, unspecified; K25.9 Gastric ulcer, unspecified as acute or chronic, without hemorrhage or perforation; E78.5 Hyperlipidemia, unspecified; N40.0 Benign prostatic hyperplasia without lower urinary tract symptoms; D72.829 Elevated white blood cell count, unspecified; I12.9 Hypertensive chronic kidney disease with stage 1 through stage 4 chronic kidney disease, or unspecified chronic kidney disease; N18.3 Chronic kidney disease, stage 3 (moderate); K29.60 Other gastritis without bleeding
CPT/HCPCS: 36415; 36600; 71010-TC; 74000-TC; 74176-TC; 80048; 80053; 81003; 81015; 82272; 82550; 82803; 83605; 83735; 83880; 84100; 84443; 84484; 85025; 85027; 85610; 85730; 86850; 86900; 86901; 87040; 87086; 93005; 93010; 93306-TC; 99285-25

== ENCOUNTER 2017-02-13 03:43 | Emergency (ER) | payer OTHER ==
--- NOTE | 2017-02-13 03:48 | PDOC ---
History of Present Illness - General Stated Complaint: IV PROBLEM Time Seen by Provider: 02/13/17 03:47 - History of Present Illness Initial Comments: 02/13/17 03:51 Mr. Taylor is an 86 yo male w/ pmh of HTN, UTI, Stage 3 CKD, DVT, and Alzheimer 's dementia with recent admission and discharge 01/21 for aspiration pneumonia sent from [facility] for IV placement for IV antibiotic administration. Per long term staff he is currently receiving daily IV antibiotics but they were unable to successfully place a new IV after his previous was pulled out. Allergies: NKDA Past History - Past Medical History Allergies/Adverse Reactions: Allergies Allergy/AdvReac Type Severity Reaction Status Date / Time No Known Allergies Allergy Verified 01/14/17 18:43 Home Medications: Ambulatory Orders Acetaminophen [Tylenol] 2 tab GT BID 01/14/17 Heparin - 5,000 unit SQ BID 01/14/17 Mirtazapine [Remeron -] 15 mg GT DAILY 01/14/17 Pantoprazole Sodium [Protonix] 40 mg GT DAILY 01/14/17 Sennosides [Senna] 2 tab GT HS 01/14/17 Zinc Sulfate [Zinc-220] 220 mg GT DAILY 01/14/17 Amox-Tr/K Cl [Augmentin Suspension -] 250 mg PO BID@0800,1730 #4 ml 01/19/17 Magnesium Hydrox 2400MG/30Ml [Milk of Magnesia -] 30 ml GT HS #0 5ml 01/19/17 Polyethylene Glycol 3350 [Miralax 119 gm Btl -] 17 gm GT DAILY bottle 01/19/17 Zinc Oxide/Panthenol/Vitamin E [Balmex Cream -] 1 applic TP TID tube 01/19/17 Doxazosin Mesylate [Cardura -] 4 mg GT DAILY tablet 01/20/17 Metoprolol Tartrate [Lopressor -] 25 mg PEG BID tablet 01/20/17 COPD: No DVT: Yes Dementia: Yes GI Disorders: Yes (gerd gtube) HTN: Yes - Suicide/Smoking/Psychosocial Hx Smoking History: Unknown if ever smoked Have you smoked in the past 12 months: No Hx Alcohol Use: No Drug/Substance Use Hx: No Substance Use Type: None Review of Systems - Review of Systems Comments:: 02/13/17 03:59 Unable to obtain. *Physical Exam - Physical Exam Comments: 02/13/17 03:59 GENERAL: Awake, alert. Responds to some questions. In no acute distress. HEAD: No signs of trauma, normocephalic, atraumatic EYES: PERRLA, EOMI, sclera anicteric, conjunctiva clear ENT: Auricles normal inspection, hearing grossly normal, nares patent, oropharynx clear without exudates. Moist mucosa NECK: Normal ROM, supple, no lymphadenopathy, JVD, or masses LUNGS: No distress, clear to auscultation bilaterally HEART: Regular rate and rhythm, normal S1 and S2, no murmurs, rubs or gallops, peripheral pulses normal and equal bilaterally. ABDOMEN: Soft, nontender, normoactive bowel sounds. No guarding, no rebound. No masses EXTREMITIES: Normal inspection, Normal range of motion, no edema. No clubbing or cyanosis. NEUROLOGICAL: Unable to assess. SKIN: Warm, Dry, normal turgor, no rashes or lesions noted. Medical Decision Making - Medical Decision Making 02/13/17 04:01 Mr. Taylor is an 86 yo male who presents from long term for IV placement. Patient in no acute distress and reported to be at baseline. IV placed by ED staff and patient will be transferred back to [facility] following administration of scheduled IV ABX. *DC/Admit/Observation/Transfer Diagnosis at time of Disposition: Encounter for intravenous line placement - Discharge Dispostion Disposition: HOME - Referrals - Patient Instructions Additional Instructions: Please return if any fever, warmth, pain, or other symptoms concerning for infection. - Post Discharge Activity
--- NOTE | 2017-02-13 03:56 | PDOC ---
Attending Attestation - Resident Resident Name: Andres Pascal - ED Attending Attestation I have performed the following: I have examined & evaluated the patient, The case was reviewed & discussed with the resident, I agree w/resident's findings & plan - HPI HPI: 02/13/17 04:03 Pt comes to the ER because the NH couldn't place an IV line. - Physicial Exam PE: 02/13/17 04:03 Afebrile, VSS; legs contracted. Abd soft NT ND; lungs clear. Heart S1S2 RRR. - Medical Decision Making 02/13/17 04:04 IV line placed easily by our nurse. Pt can return to the NH.
[2017-02-13] MEDS ORDERED: VANCOMYCIN 1,000 MG in DEXTROSE 5%-WATER - 250 ML IVPB ONE (04:05)
[2017-02-13] MEDS ORDERED: CEFTRIAXONE 1,000 MG in DEXTROSE 5%-WATER - 50 ML IVPB ONE (04:06)
[2017-02-13] MEDS ORDERED: VANCOMYCIN 1 GRAM (PRE-DOCKED) 1,000 MG/250 ML BAG IVPB ONE (04:07)
[2017-02-13] MEDS ORDERED: CEFTRIAXONE 1 GM/50 ML BAG ONE (04:08)
[2017-02-13 05:27] VITALS: BP 137/77; PULSE 77; TEMP 98.4; BMI 21.3
== END 2017-02-13 04:30 | disposition home or self-care (01) ==
LOC: JER 03:43
DX: J69.0 Pneumonitis due to inhalation of food and vomit (principal); Z79.2 Long term (current) use of antibiotics; Y84.8 Other medical procedures as the cause of abnormal reaction of the patient, or of later complication, without mention of misadventure at the time of the procedure; Y82.8 Other medical devices associated with adverse incidents; I12.9 Hypertensive chronic kidney disease with stage 1 through stage 4 chronic kidney disease, or unspecified chronic kidney disease; N18.3 Chronic kidney disease, stage 3 (moderate); N39.0 Urinary tract infection, site not specified; G30.8 Other Alzheimer's disease; F02.80 Dementia in other diseases classified elsewhere, unspecified severity, without behavioral disturbance, psychotic disturbance, mood disturbance, and anxiety; Z86.718 Personal history of other venous thrombosis and embolism; Z79.01 Long term (current) use of anticoagulants
CPT/HCPCS: 96365; 99281-25

== ENCOUNTER 2017-04-04 02:11 | Inpatient (IN) | payer OTHER ==
[2017-04-04] MEDS ORDERED: ACETAMINOPHEN INJECTION 100 ML IVPB ONE (02:17)
[2017-04-04 02:36] VITALS: BMI 18.9
--- NOTE | 2017-04-04 02:42 | PDOC ---
History of Present Illness - General History Source: Correction Records <Qamar Edouard - Last Filed: 04/04/17 04:01> - General History Source: EMS, Correction Records Exam Limitations: Dementia - History of Present Illness Initial Comments: 04/04/17 02:47 The patient is an 86 year old male, DNR/DNI, with a significant past medical history of hypertension, frequent UTI, CKD stage 3, DVT, and Alzheimer's dementia, with recent admission and discharge 01/21/17 for aspiration pneumonia sent from [facility] today for evaluation of fever, low blood pressure , and difficulty breathing as per [facility] staff and EMS. As per IA, a moya was placed and IV normal saline was initiated before transfer here. The patient is unable to provide history secondary to his dementia. Allergies: NKDA <Vida Marinelli - Last Filed: 04/04/17 05:27> - General Chief Complaint: SIRS, Suspected/Possible Stated Complaint: DIFFICULTY BREATHING Time Seen by Provider: 04/04/17 02:40 Past History - Past Medical History COPD: Yes DVT: Yes Dementia: Yes GI Disorders: Yes (gerd gtube) HTN: Yes - Suicide/Smoking/Psychosocial Hx Smoking History: Unknown if ever smoked Have you smoked in the past 12 months: No Hx Alcohol Use: No Drug/Substance Use Hx: No Substance Use Type: None <Qamar Edouard - Last Filed: 04/04/17 04:01> <Vida Marinelli - Last Filed: 04/04/17 05:27> - Past Medical History Allergies/Adverse Reactions: Allergies Allergy/AdvReac Type Severity Reaction Status Date / Time No Known Allergies Allergy Verified 02/13/17 04:40 Home Medications: Ambulatory Orders Acetaminophen [Tylenol] 2 tab GT BID 01/14/17 Heparin - 5,000 unit SQ BID 01/14/17 Mirtazapine [Remeron -] 15 mg GT DAILY 01/14/17 Zinc Sulfate [Zinc-220] 220 mg GT DAILY 01/14/17 Amox-Tr/K Cl [Augmentin Suspension -] 250 mg PO BID@0800,1730 #4 ml 01/19/17 Magnesium Hydrox 2400MG/30Ml [Milk of Magnesia -] 30 ml GT HS #0 5ml 01/19/17 Polyethylene Glycol 3350 [Miralax 119 gm Btl -] 17 gm GT DAILY bottle 01/19/17 Zinc Oxide/Panthenol/Vitamin E [Balmex Cream -] 1 applic TP TID tube 01/19/17 Doxazosin Mesylate [Cardura -] 4 mg GT DAILY tablet 01/20/17 Metoprolol Tartrate [Lopressor -] 25 mg PEG BID tablet 01/20/17 Albuterol Sulfate 0.5% [Ventolin 0.5% -] 1 amp NEB QID PRN 02/13/17 Ceftriaxone [Rocephin -] 1 gm IVPB DAILY 02/13/17 Guaifenesin [Robitussin] 100 mg PO Q6H PRN 02/13/17 Ranitidine HCl [Zantac] 300 mg GT HS 02/13/17 Silver Sulfadiazine 1% Top Cr [Silvadene -] 1 applic TP DAILY 02/13/17 Vancomycin 1 gm Premix - [Vancomycin HCl 1g/200 Ml Bag] 1 gm IV DAILY 02/13/17 Review of Systems - Review of Systems Able to Perform ROS?: No (dementia) <Vida Marinelli - Last Filed: 04/04/17 05:27> *Physical Exam - Vital Signs Last Vital Signs Temp Pulse Resp BP Pulse Ox 100.9 F H 105 H 40 H 98/61 93 L 04/04/17 02:29 04/04/17 02:29 04/04/17 02:29 04/04/17 02:29 04/04/17 02:29 <Qamar Edouard - Last Filed: 04/04/17 04:01> - Vital Signs Last Vital Signs Temp Pulse Resp BP Pulse Ox 100.9 F H 105 H 40 H 98/61 93 L 04/04/17 02:29 04/04/17 02:29 04/04/17 02:29 04/04/17 02:29 04/04/17 02:29 - Physical Exam Comments: 04/04/17 02:47 GENERAL: (+) febrile. Well developed, well nourished. In moderate distress. HEENT: Normocephalic, atraumatic. PERRLA, EOMI. No conjunctival pallor. Sclera are non- icteric. Moist mucous membranes. Oropharynx is clear. NECK: Supple. Full ROM. No JVD. Carotid pulses 2+ and symmetric, without bruits. No thyromegaly. No lymphadenopathy. CARDIOVASCULAR: Regular rate and rhythm. No murmurs, rubs, or gallops. Distal pulses are 2+ and symmetric. PULMONARY: (+) Bilateral crackles and wheezing greatest heard on the left side. Moderate respiratory distress. ABDOMINAL: Soft. Non-tender. Non-distended. No rebound or guarding. No organomegaly. Normoactive bowel sounds. MUSCULOSKELETAL Normal range of motion at all joints. No bony deformities or tenderness. No CVA tenderness. EXTREMITIES: No cyanosis. No clubbing. No edema. No calf tenderness. SKIN: Warm and dry. Normal capillary refill. No rashes. No jaundice. NEUROLOGICAL: Awake and appropriate. Cranial nerves 2-12 intact. Normoreflexic in the upper and lower extremities. Normal speech. Toes are down-going bilaterally. Gait unassessed. PSYCHIATRIC: Cooperative. Good eye contact. Appropriate mood and affect. <Vida Marinelli - Last Filed: 04/04/17 05:27> Heart Score/ECG Review - ECG Intrepretation Comment:: 04/04/17 02:50 EKG was read by Dr. Edouard at 2:25 Impression: Sinus tachycardia with premature supraventricular complexes. Left axis deviation. Left ventricular hypertrophy with repolarization abnormality. Vent Rate: 108 bpm NE Interval: 152 ms Qtc: 434 ms <Vida Marinelli - Last Filed: 04/04/17 05:27> ED Treatment Course - LABORATORY CBC & Chemistry Diagram: 04/04/17 02:44 04/04/17 02:44 - RADIOLOGY Radiology Studies Ordered: Category Date Time Status CHEST X-RAY PORTABLE* [RAD] Stat Radiology 04/04/17 02:25 Ordered <Qamar Edouard - Last Filed: 04/04/17 04:01> - LABORATORY CBC & Chemistry Diagram: 04/04/17 02:44 04/04/17 02:44 - RADIOLOGY Radiograph Interpretation: DATE OF SERVICE: 2017-04-04 02:44:31 IMAGES: 2 EXAM: Chest x-ray AP portable HISTORY: Sepsis COMPARISON: None. FINDINGS: There is complete opacification of the left lung. This could be from fluid, infiltrate, mass, or a combination. CT would be helpful to evaluate. The right lung is clear. The heart is obscured by the opacified left lung. Osseous structures are intact. Young Nelson MD 04/04/2017 05:24 EST <Vida Marinelli - Last Filed: 04/04/17 05:27> Medical Decision Making - Medical Decision Making 04/04/17 04:01 Dr. Edouard: The scribe's documentation has been prepared under my direction and personally reviewed by me in its entirery. I confirm that the note above accurately reflects all work, treatment, procedures, and medical decision making performed by me. Septic pt accepted to ICU when bed is available. IV Abx will be started. IVF in progress <Qamar Edouard - Last Filed: 04/04/17 04:01> *DC/Admit/Observation/Transfer - Discharge Dispostion Admit: Yes <Qamar Edouard - Last Filed: 04/04/17 04:01> - Attestations Scribe Attestion: 04/04/17 02:50 Documentation prepared by Vida Marinelli, acting as electromedical equipment technician for Qamar Edouard DO. <Vida Marinelli - Last Filed: 04/04/17 05:27> Diagnosis at time of Disposition: Pleural effusion on left Sepsis Qualifiers: Sepsis type: sepsis due to unspecified organism Qualified Code(s): A41.9 - Sepsis, unspecified organism UTI (urinary tract infection) Qualifiers: Urinary tract infection type: site unspecified Hematuria presence: without hematuria Qualified Code(s): N39.0 - Urinary tract infection, site not specified - Discharge Dispostion Condition at time of disposition: Stable
[2017-04-04] MEDS ORDERED: AZITHROMYCIN IVPB 250 ML IVPB ONE (02:55)
[2017-04-04] MEDS ORDERED: AZITHROMYCIN IVPB 500 MG in DEXTROSE 5%-WATER - 250 ML IVPB ONE (02:55)
[2017-04-04] MEDS ORDERED: CEFTRIAXONE 1 GM/50 ML BAG ONE (02:56)
[2017-04-04 03:04] LABS: BASO % 0.3 % (0-2.0); EOS % 0.7 % (0-4.5); HEMATOCRIT 25.7 % (35.4-49); HEMOGLOBIN 8.2 GM/dL (11.7-16.9); LYMPH % 11.7 % (8-40); MCH 26.8 pg (25.7-33.7); MEAN CELL VOLUME 83.8 fl (80-96); MEAN PLT VOLUME 8.1 fl (7.5-11.1); MONO % 6.1 % (3.8-10.2); NEUT % 81.2 % (42.8-82.8); PLATELET COUNT 322 K/MM3 (134-434); RBC 3.07 M/mm3 (4.00-5.60); RDW 16.4 % (11.9-15.9)
[2017-04-04 03:07] LABS: VENOUS PC02 32.2 mmHg (38-52); VENOUS PH 7.51 (7.32-7.42); VENOUS PO2 51.8 mmHg (28-48)
[2017-04-04 03:18] LABS: INR 1.29 (0.82-1.09); PROTHROMBIN TIME (PATIENT) 14.6 SEC (9.98-11.88)
[2017-04-04 03:20] LABS: ACTIVATED PTT 28.3 SECONDS (26.9-34.4)
[2017-04-04 03:23] LABS: URINE APPEARANCE CLOUDY; URINE BILIRUBIN NEGATIVE (NEGATIVE); URINE BLOOD 3+ (NEGATIVE); URINE COLOR AMBER; URINE GLUCOSE (UA) NEGATIVE (NEGATIVE); URINE KETONE NEGATIVE (NEGATIVE); URINE NITRITE NEGATIVE (NEGATIVE)
[2017-04-04 03:24] LABS: URINE PROTEIN 2+ (NEGATIVE)
[2017-04-04 03:25] LABS: URINE LEUK ESTERASE 3+ (NEGATIVE)
[2017-04-04 03:27] LABS: CALCIUM OXALATE CRYSTALS FEW /hpf (NONE SEEN); EPI CELLS RARE /HPF (FEW); URINE BACTERIA MANY /hpf (NONE SEEN); URINE MUCUS FEW
[2017-04-04 03:29] LABS: ALBUMIN 1.8 g/dl (3.4-5.0); ANION GAP 6 (8-16); BILIRUBIN,TOTAL 0.2 mg/dL (0.2-1.0); BLOOD UREA NITROGEN 38 mg/dL (7-18); CALCIUM 7.6 mg/dL (8.5-10.1); CHLORIDE 107 mmol/L (98-107); CO2 27 mmol/L (21-32); CREATININE 0.7 mg/dL (0.7-1.3); GLUCOSE,RANDOM 131 mg/dL (74-106); POTASSIUM 4.1 mmol/L (3.5-5.1); SGOT/AST 11 U/L (15-37); SGPT/ALT 13 U/L (12-78); SODIUM 140 mmol/L (136-145); TOT PROT 5.6 g/dl (6.4-8.2)
[2017-04-04 03:31] LABS: ALK PHOS 172 U/L (45-117)
[2017-04-04] MEDS ORDERED: PIPERACILLIN/TAZOB 3.375 GM 50 ML IVPB ONE (03:55)
--- NOTE | 2017-04-04 03:57 | PN ---
Teaching Attending Note Name of Resident: Stevie Lopez ATTENDING PHYSICIAN STATEMENT I saw and evaluated the patient. I reviewed the resident's note and discussed the case with the resident. I agree with the resident's findings and plan as documented. SUBJECTIVE: 86 yo M with Pmhx of htn, hld cva, CKD 3, BOH,UTI, Alzheimer's dementia, schizoaffective do who was recently admitted for Sepsis secondary to a pnuemonia in January who presents from [facility], for fever and low BP. As per staff he also had shortness of breath. Pt. is non-verbal at baseline. Unable to Obtain history. OBJECTIVE: Physical: VS: Vital Signs Period Temp Pulse Resp BP Sys/Lucia Pulse Ox Last 24 Hr 100.9 F-100.9 F 105-125 34-40 98-121/53-61 80-93 GEN: Cachetic laying in bed, [id number] HEENT: NCAT, PERRL, Throat mouth with mucous CARD: S Tach S1, S2 RESP: Coarse Breath Sounds all goncalves on R. No breath sounds on left ABD: BSx4, NTD to palpation EXT: - C/C/E CBCD WBC 10.0 K/mm3 (4.0-10.0) D 04/04/17 02:44 RBC 3.07 M/mm3 (4.00-5.60) L 04/04/17 02:44 Hgb 8.2 GM/dL (11.7-16.9) L D 04/04/17 02:44 Hct 25.7 % (35.4-49) L 04/04/17 02:44 MCV 83.8 fl (80-96) D 04/04/17 02:44 MCHC 32.0 g/dl (32.0-35.9) 04/04/17 02:44 RDW 16.4 % (11.9-15.9) H 04/04/17 02:44 Plt Count 322 K/MM3 (134-434) D 04/04/17 02:44 MPV 8.1 fl (7.5-11.1) 04/04/17 02:44 CMP Sodium 140 mmol/L (136-145) 04/04/17 02:44 Potassium 4.1 mmol/L (3.5-5.1) 04/04/17 02:44 Chloride 107 mmol/L (98-107) 04/04/17 02:44 Carbon Dioxide 27 mmol/L (21-32) 04/04/17 02:44 Anion Gap 6 (8-16) L 04/04/17 02:44 BUN 38 mg/dL (7-18) H D 04/04/17 02:44 Creatinine 0.7 mg/dL (0.7-1.3) 04/04/17 02:44 Creat Clearance w eGFR > 60 (>60) 04/04/17 02:44 Random Glucose 131 mg/dL (74-106) H 04/04/17 02:44 Calcium 7.6 mg/dL (8.5-10.1) L 04/04/17 02:44 Total Bilirubin 0.2 mg/dL (0.2-1.0) 04/04/17 02:44 AST 11 U/L (15-37) L D 04/04/17 02:44 ALT 13 U/L (12-78) D 04/04/17 02:44 Alkaline Phosphatase 172 U/L (45-117) H D 04/04/17 02:44 Total Protein 5.6 g/dl (6.4-8.2) L 04/04/17 02:44 Albumin 1.8 g/dl (3.4-5.0) L 04/04/17 02:44 CARDIAC ENZYMES Creatine Kinase 53 IU/L (39-308) 04/04/17 02:44 Troponin I 0.03 ng/ml (0.00-0.05) D 04/04/17 02:44 Home Medications Medication Instructions Recorded Acetaminophen [Tylenol] 2 tab GT BID 01/14/17 Heparin - 5,000 unit SQ BID 01/14/17 Mirtazapine [Remeron -] 15 mg GT DAILY 01/14/17 Zinc Sulfate [Zinc-220] 220 mg GT DAILY 01/14/17 Amox-Tr/K Cl [Augmentin Suspension 250 mg PO BID@0800,1730 #4 ml 01/19/17 -] Magnesium Hydrox 2400MG/30Ml [Milk 30 ml GT HS #0 5ml 01/19/17 of Magnesia -] Polyethylene Glycol 3350 [Miralax 17 gm GT DAILY bottle 01/19/17 119 gm Btl -] Zinc Oxide/Panthenol/Vitamin E 1 applic TP TID tube 01/19/17 [Balmex Cream -] Doxazosin Mesylate [Cardura -] 4 mg GT DAILY tablet 01/20/17 Metoprolol Tartrate [Lopressor -] 25 mg PEG BID tablet 01/20/17 Albuterol Sulfate 0.5% [Ventolin 1 amp NEB QID PRN 02/13/17 0.5% -] Ceftriaxone [Rocephin -] 1 gm IVPB DAILY 02/13/17 Guaifenesin [Robitussin] 100 mg PO Q6H PRN 02/13/17 Ranitidine HCl [Zantac] 300 mg GT HS 02/13/17 Silver Sulfadiazine 1% Top Cr 1 applic TP DAILY 02/13/17 [Silvadene -] Vancomycin 1 gm Premix - 1 gm IV DAILY 02/13/17 [Vancomycin HCl 1g/200 Ml Bag] CXR- Large Left Effusion EKG: S Tach ASSESSMENT AND PLAN: 86 yo M with Pmhx of htn, hld cva, CKD 3, BPH,UTI, Alzheimer's dementia, schizoaffective do, who presents in sepsis and in respiratory failure 1.) Acute Respiratory Failure - Stat ABG - CT Chest when able - BIPAP if pt. able to, pt. is DNI 2.) Severe Sepsis due to Pneumonia HCAP/UTI - Sánchez Cx - VERY Gentle IVF trial, if no improvement will consider central line and pressor support - Repeat LA - Vanco/Zosyn - CT Chest when stable - ID consult - Urine AGs - Large L. Effsuion- Ir guided drainage if possible - NPO 3.) HTN - Hold all meds 4.) Alzheimer's Dementia - Hold PO Meds 5.) DVT PPx - Heparin 5000 q8 Pt. is DNR/DNI with MOLST form on chart Accepted to ICU: CC Time: 50 Minutes, attempted to reach Guardian with no success
--- NOTE | 2017-04-04 04:26 | HP ---
CHIEF COMPLAINT: Fever, hypotension and SOB x1day PCP: Dr Hutson ([facility]) HISTORY OF PRESENT ILLNESS: Unable to obtain hx from pt who is demented at baseline and currently non responsive. 86 yo M, DNR/DNI, with a significant PMHx of HTN, frequent UTI, CKD stage 3, DVT , and Alzheimer's dementia, with recent discharge 01/21/17 for aspiration PNA ( received vanc/zosyn), BIBEMS from [facility] today for fever, hypotension, and SOB. Pt was given IV fluids and had a moya catheter inserted prior to transfer from [place]. Pt is DNI/DNR but not DNH. Spoke with night nursing electrician supervisor substation - Magda ([phone]), who said the guardian for Mr Claudia Howard could not be reached prior to transfer today and a message was left for the guardianship agency ([phone], or [phone]). Since arriving at ER Pt was placed on NRB mask- tachycardic and tachypneic. Tmax 100.6 ER course was notable for: (1) Tachycardic- 105 and [id number]. Tmax 100.6 (2) Iv tylenol, ceftriaxone, azithromycin, vanc, zosyn (3) CXR-complete opacification of L lung lobe (pending formal read) (4) EKG- Sinus tachycardia at 108, normal QTC-434 (5) UA- LE 3+, WBC-631, RBC-456 (6)) LA-1.8, trops-0.03, Cr Kinase-53, VBG-7.5/32.2/51.8, INR-1.29, CBC, CMP Recent Travel: PAST MEDICAL HISTORY: HTN, frequent UTI, CKD stage 3, DVT, Alzheimer's dementia, PAST SURGICAL HISTORY: Social History: Smoking:None Alcohol: Drugs: Family History: Allergies No Known Allergies Allergy (Verified 02/13/17 04:40) HOME MEDICATIONS: Home Medications Medication Instructions Recorded Acetaminophen [Tylenol] 2 tab GT BID 01/14/17 Heparin - 5,000 unit SQ BID 01/14/17 Mirtazapine [Remeron -] 15 mg GT DAILY 01/14/17 Zinc Sulfate [Zinc-220] 220 mg GT DAILY 01/14/17 Amox-Tr/K Cl [Augmentin Suspension 250 mg PO BID@0800,1730 #4 ml 01/19/17 -] Magnesium Hydrox 2400MG/30Ml [Milk 30 ml GT HS #0 5ml 01/19/17 of Magnesia -] Polyethylene Glycol 3350 [Miralax 17 gm GT DAILY bottle 01/19/17 119 gm Btl -] Zinc Oxide/Panthenol/Vitamin E 1 applic TP TID tube 01/19/17 [Balmex Cream -] Doxazosin Mesylate [Cardura -] 4 mg GT DAILY tablet 01/20/17 Metoprolol Tartrate [Lopressor -] 25 mg PEG BID tablet 01/20/17 Albuterol Sulfate 0.5% [Ventolin 1 amp NEB QID PRN 02/13/17 0.5% -] Ceftriaxone [Rocephin -] 1 gm IVPB DAILY 02/13/17 Guaifenesin [Robitussin] 100 mg PO Q6H PRN 02/13/17 Ranitidine HCl [Zantac] 300 mg GT HS 02/13/17 Silver Sulfadiazine 1% Top Cr 1 applic TP DAILY 02/13/17 [Silvadene -] Vancomycin 1 gm Premix - 1 gm IV DAILY 02/13/17 [Vancomycin HCl 1g/200 Ml Bag] REVIEW OF SYSTEMS CONSTITUTIONAL: fever+ Absent: chills, diaphoresis, generalized weakness, malaise, loss of appetite, weight change HEENT: Absent: rhinorrhea, nasal congestion, throat pain, throat swelling, difficulty swallowing, mouth swelling, ear pain, eye pain, visual changes CARDIOVASCULAR: Absent: chest pain, syncope, palpitations, irregular heart rate, lightheadedness , peripheral edema RESPIRATORY: shortness of breath+ Absent: cough, dyspnea with exertion, orthopnea, wheezing, stridor, hemoptysis GASTROINTESTINAL: Absent: abdominal pain, abdominal distension, nausea, vomiting, diarrhea, constipation, melena, hematochezia GENITOURINARY: Absent: dysuria, frequency, urgency, hesitancy, hematuria, flank pain, genital pain MUSCULOSKELETAL: Absent: myalgia, arthralgia, joint swelling, back pain, neck pain SKIN: Absent: rash, itching, pallor HEMATOLOGIC/IMMUNOLOGIC: Absent: easy bleeding, easy bruising, lymphadenopathy, frequent infections ENDOCRINE: Absent: unexplained weight gain, unexplained weight loss, heat intolerance, cold intolerance NEUROLOGIC: Absent: headache, focal weakness or paresthesias, dizziness, unsteady gait, seizure, mental status changes, bladder or bowel incontinence PSYCHIATRIC: Absent: anxiety, depression, suicidal or homicidal ideation, hallucinations. PHYSICAL EXAMINATION Vital Signs - 24 hr 04/04/17 04/04/17 04/04/17 02:11 02:24 02:29 Temperature 100.9 F H 100.9 F H Pulse Rate 125 H 105 H Pulse Rate [ Apical] Respiratory 40 H Rate Blood Pressure 98/61 Blood Pressure [Right Arm] O2 Sat by Pulse 92 L 93 L Oximetry (%) 04/04/17 03:58 Temperature Pulse Rate Pulse Rate [ 125 H Apical] Respiratory 34 H Rate Blood Pressure Blood Pressure 121/53 [Right Arm] O2 Sat by Pulse 80 L Oximetry (%) GENERAL: Non responsive, in acute respiratory distress. HEAD: Normal with no signs of trauma. EYES: Pupils equal, 3mm poorly reactive to light bilaterally, sclera anicteric, conjunctiva clear. EARS, NOSE, THROAT: Increased secretions, NRB mask in place NECK: No JVD, or masses. LUNGS: Bilateral crackles all lung goncalves. accessory muscle use. HEART: Tachycardic S1 and S2 ABDOMEN: not distended, hyperactive bowel sounds Moya catheter in place draining blood stained urine MUSCULOSKELETAL: position, muscle wasting UPPER EXTREMITIES: Cool extremities. No peripheral edema. LOWER EXTREMITIES: Cool extremities. No peripheral edema. NEUROLOGICAL: Non responsive, not tracking with eyes PSYCHIATRIC: Unable to assess CBC, BMP 04/04/17 02:44 04/04/17 02:44 Laboratory Results - last 24 hr 04/04/17 04/04/17 04/04/17 02:44 02:44 02:44 WBC 10.0 D RBC 3.07 L Hgb 8.2 L D Hct 25.7 L MCV 83.8 D MCH 26.8 D MCHC 32.0 RDW 16.4 H Plt Count 322 D MPV 8.1 Neutrophils % 81.2 Lymphocytes % 11.7 D Monocytes % 6.1 Eosinophils % 0.7 D Basophils % 0.3 PT with INR 14.60 H INR 1.29 H PTT (Actin FS) 28.3 VBG pH POC VBG pCO2 POC VBG pO2 Mixed VBG HCO3 Sodium Potassium Chloride Carbon Dioxide Anion Gap BUN Creatinine Creat Clearance w eGFR Random Glucose Lactic Acid Calcium Total Bilirubin AST ALT Alkaline Phosphatase Creatine Kinase Troponin I Total Protein Albumin Urine Color Alla Urine Appearance Cloudy Urine pH 5.0 Ur Specific [place] 1.027 Urine Protein 2+ H Urine Glucose (UA) Negative Urine Ketones Negative Urine Blood 3+ H Urine Nitrite Negative Urine Bilirubin Negative Urine Urobilinogen 2.0 Ur Leukocyte Esterase 3+ H Urine WBC (Auto) 631 Urine RBC (Auto) 456 Ur Epithelial Cells Rare Calcium Oxalate Crystal Few Urine Bacteria Many Urine Mucus Few 04/04/17 04/04/17 04/04/17 02:44 02:44 02:44 WBC RBC Hgb Hct MCV MCH MCHC RDW Plt Count MPV Neutrophils % Lymphocytes % Monocytes % Eosinophils % Basophils % PT with INR INR PTT (Actin FS) VBG pH 7.51 H POC VBG pCO2 32.2 L POC VBG pO2 51.8 H D Mixed VBG HCO3 25.7 H Sodium 140 Potassium 4.1 Chloride 107 Carbon Dioxide 27 Anion Gap 6 L BUN 38 H D Creatinine 0.7 Creat Clearance w eGFR > 60 Random Glucose 131 H Lactic Acid 1.8 Calcium 7.6 L Total Bilirubin 0.2 AST 11 L D ALT 13 D Alkaline Phosphatase 172 H D Creatine Kinase 53 Troponin I 0.03 D Total Protein 5.6 L Albumin 1.8 L Urine Color Urine Appearance Urine pH Ur Specific [place] Urine Protein Urine Glucose (UA) Urine Ketones Urine Blood Urine Nitrite Urine Bilirubin Urine Urobilinogen Ur Leukocyte Esterase Urine WBC (Auto) Urine RBC (Auto) Ur Epithelial Cells Calcium Oxalate Crystal Urine Bacteria Urine Mucus ASSESSMENT/PLAN: 86 yo M, DNR/DNI, with a significant PMHx of HTN, frequent UTI, CKD stage 3, DVT , and Alzheimer's dementia, BPH, CVA, osteoporosis, with recent discharge for aspiration PNA (received vanc/zosyn), BIBEMS from [facility] today for fever, hypotension, and SOB. Severe Sepsis 2/2 HCAP R/O Aspiration PNA: Tmax-100.6, tachycardia, tachypnea, hypotension (MAP currently around 65) Recent aspiration PNA treated with vanc/zosyn CXR- LL opacity Received ceftriaxone/azithro/vanc/zosyn in ED Received NS in NH (likely 1L) iv NS 250ml bolus Cont Vanc zosyn-3.35 ID consult- Dr Yu ABG stat CBC, CMP Bld cx-pending Urine Ag for PNA Repeat Lactic acid Sepsis 2/2 UTI UA-LE 3+, WBCs Recurrent UTIs Cont Vanc zosyn-3.35 ID consult- Dr Yu iv NS 250ml bolus urine cx- pending Maintain MAP >65 HTN: Hold BP meds Metoprolol 25 bid Norvasc-10mg daily CKD stage 3: Cr- 0.7 Continue gentle hydration with sepsis Avoid nephrotoxic drugs Monitor lytes and replete as needed Hx of DVT: Not on AC Previous CVA: Unsure of baseline mental status Alzheimer's dementia: Hold BPH: Hold tamsolusin with hypotension Continue moya catheter FEN: Gentle hydration- 250ml NS stat Unable to determine how much fluid he has received Monitor lytes NPO PPx: Heparin 5000u Q8H Dispo; Accepted in ICU DNI/DNR Unable to reach guardian (Gigi Howard -[phone], or [phone]) . Visit type - Emergency Visit Emergency Visit: Yes ED Registration Date: 04/04/17 Care time: The patient presented to the Emergency Department on the above date and was hospitalized for further evaluation of their emergent condition. - New Patient This patient is new to me today: Yes Date on this admission: 04/04/17 - Critical Care Critical Care patient: Yes Total Critical Care Time (in minutes): 48 Critical Care Statement: The care of this patient involved high complexity decision making to prevent further life threatening deterioration of the patient 's condition and/or to evaluate & treat vital organ system(s) failure or risk of failure. Hospitalist Screening - Colonoscopy Questionnaire Colonoscopy Questionnaire: Colonoscopy Questionnaire - Patient: 50 - 75 years old and never had a screening colonoscopy: No History of colon or rectal polyps, or CA: Unknown History of IBD, Crohn's disease or UC: Unknown History of abdominal radiation therapy as a child: Unknown - Relative: 1 with colon or rectal CA, or polyps at age 60 or younger: Unknown Colon or rectal CA diagnosed at age 45 or younger: Unknown Multiple relatives with colon or rectal CA: Unknown - Outcome: Screening Result: Negative Screen
[2017-04-04] MEDS ORDERED: PIPERACILLIN/TAZOB 4.5 GM 4.5 GM/100 ML BAG IVPB ONE (04:39)
[2017-04-04] MEDS ORDERED: VANCOMYCIN 1 GRAM (PRE-DOCKED) 1,000 MG/250 ML BAG IVPB ONE ×2 (04:39→05:00)
[2017-04-04] MEDS ORDERED: SODIUM CHLORIDE 0.9% 500 ML INFUS.BAG IV ONE (04:53)
[2017-04-04 06:39] LABS: EOS % 0.1 % (0-4.5); HEMATOCRIT 26.1 % (35.4-49); HEMOGLOBIN 8.1 GM/dL (11.7-16.9); LYMPH % 4.5 % (8-40); MCH 26.4 pg (25.7-33.7); MCHC 31.1 g/dl (32.0-35.9); MEAN CELL VOLUME 84.7 fl (80-96); MEAN PLT VOLUME 8.4 fl (7.5-11.1); MONO % 3.5 % (3.8-10.2); NEUT % 90.9 % (42.8-82.8); PLATELET COUNT 322 K/MM3 (134-434); RBC 3.08 M/mm3 (4.00-5.60); RDW 16.7 % (11.9-15.9); WHITE BLOOD COUNT 16.5 K/mm3 (4.0-10.0)
[2017-04-04 06:40] LABS: ARTERIAL BLD GAS O2 SATURATION 96.2 % (90-98.9); ARTERIAL BLOOD GAS BASE EXCESS 0.7 meq/l (-2-2); ARTERIAL BLOOD GAS PO2 78.2 mmHg (68-100); ARTERIAL BLOOD GAS pH 7.49 (7.35-7.45); CARBOXYHEMOGLOBIN 2.1 gm% (0.5-2.0)
[2017-04-04] MEDS: HEPARIN NA (PORCINE) 5,000 UNITS/ML 1ML VIAL SQ SCH ×3 (06:44→22:06)
[2017-04-04] MEDS ORDERED: HEPARIN NA (PORCINE) 5,000 UNITS/ML 1ML VIAL ONE (06:45)
[2017-04-04 07:15] LABS: MAGNESIUM 1.9 mg/dL (1.8-2.4); PHOSPHOROUS 3.8 mg/dL (2.5-4.9)
[2017-04-04 07:18] LABS: ALBUMIN 1.8 g/dl (3.4-5.0); ALK PHOS 160 U/L (45-117); ANION GAP 9 (8-16); BILIRUBIN,TOTAL 0.3 mg/dL (0.2-1.0); BLOOD UREA NITROGEN 38 mg/dL (7-18); CALCIUM 7.3 mg/dL (8.5-10.1); CHLORIDE 105 mmol/L (98-107); CO2 24 mmol/L (21-32); CREATININE 0.7 mg/dL (0.7-1.3); GLUCOSE,RANDOM 154 mg/dL (74-106); POTASSIUM 3.9 mmol/L (3.5-5.1); SGOT/AST 11 U/L (15-37); SGPT/ALT 12 U/L (12-78); SODIUM 138 mmol/L (136-145); TOT PROT 5.5 g/dl (6.4-8.2)
--- NOTE | 2017-04-04 07:55 | PN ---
Progress Note, Physician Chief Complaint: ID Known to our service from Jan 2017 admission for aspiration PNA Currently appears preterminal dyspneic labored - Current Medication List Current Medications: Active Medications Chlorhexidine Gluconate (Hibiclens For Decolonization -) 1 applic TP HS PIPPA Heparin Sodium (Porcine) (Heparin -) 5,000 unit SQ TID [facility] Last Admin: 04/04/17 06:44 Dose: 5,000 unit Vancomycin HCl 1,000 mg/ (Dextrose) 250 mls @ 250 mls/hr IVPB BID PIPPA PRN Reason: Protocol Mupirocin (Bactroban Ointment (For Decolonization) -) 1 applic NS BID [facility] Stop: 04/09/17 09:59 Piperacillin/Tazobactam/Dextrose (Zosyn 3.375gm Ivpb (Premix)) 3.375 gm IVPB ONCE ONE Stop: 04/04/17 12:34 - Objective Vital Signs: Vital Signs Temperature 98.3 F 04/04/17 05:11 Pulse Rate 122 H 04/04/17 06:25 Respiratory Rate 33 H 04/04/17 06:25 Blood Pressure 100/61 04/04/17 06:25 O2 Sat by Pulse Oximetry (%) 93 L 04/04/17 06:25 Cardiovascular: Yes: S1, S2 Respiratory: Yes: WNL, Regular, CTA Bilaterally, Diminished, Rhonchi Gastrointestinal: Yes: Soft Extremities: Yes: Other (Contracted) Labs: CBC, BMP 04/04/17 06:21 04/04/17 06:21 INR, PTT INR 1.29 (0.82-1.09) H 04/04/17 02:44 Problem List - Problems (1) Respiratory failure Code(s): J96.90 - RESPIRATORY FAILURE, UNSP, UNSP W HYPOXIA OR HYPERCAPNIA (2) UTI (urinary tract infection) Code(s): N39.0 - URINARY TRACT INFECTION, SITE NOT SPECIFIED Qualifiers: Urinary tract infection type: site unspecified Hematuria presence: without hematuria Qualified Code(s): N39.0 - Urinary tract infection, site not specified (3) Pneumonia Code(s): J18.9 - PNEUMONIA, UNSPECIFIED ORGANISM Assessment/Plan Microbiology 01/16/17 23:00 Urine - Urine Cole Urine Culture - Final NO GROWTH OBTAINED 01/14/17 19:04 Blood - Peripheral Venous Blood Culture - Final NO GROWTH AFTER 5 DAYS INCUBATION 01/14/17 18:35 Blood - Peripheral Venous Blood Culture - Final NO GROWTH AFTER 5 DAYS INCUBATION Laboratory Tests 04/04/17 04/04/17 04/04/17 02:44 06:21 06:21 WBC 16.5 H D RBC 3.08 L Hgb 8.1 L Plt Count 322 Creatinine 0.7 Total Bilirubin 0.3 D AST 11 L Alkaline Phosphatase 160 H Ur Leukocyte Esterase 3+ H Urine RBC (Auto) 456 Assessment Compete opacification of left hemithorax ( atalectasis) Urinary infection Sepsis syndrome Plan Empiric Vancomycin and Zosyn Sputum c/s urine and blood culture Prognosis poor due to age poor functional status and sepsis Pulmonary consult Jarad LARSON
--- NOTE | 2017-04-04 08:49 | CONS ---
INFECTIOUS DISEASE CONSULTATION DATE OF CONSULTATION: 04/04/2017 HISTORY OF PRESENT ILLNESS: This is an 86-year-old male from [facility], who I am asked to see for evaluation of fever, respiratory distress, and sepsis. [facility] with complaints of fever, shortness of breath, and hypotension. He was given intravenous fluids, and a Cole catheter was inserted prior to his transfer from the prison. Currently, the patient is alert but unresponsive on a Ventimask. He was noted to be febrile, tachycardic, and tachypneic. A chest x-ray shows complete opacification of the left hemithorax. He was given empiric antibiotic with vancomycin and ceftriaxone. The patient had been here in January [address] Yu at that time and treated for aspiration pneumonia with piperacillin/tazobactam. His cultures were negative. PAST MEDICAL HISTORY: Includes aspiration pneumonia, chronic kidney disease, DVT, Alzheimer dementia, hypertension. MEDICATIONS: Include Remeron, metoprolol, Cardura. ALLERGIES: None known. SOCIAL HISTORY: [facility] resident. Unknown if ever smoked. No history of alcohol or substance abuse. FAMILY HISTORY: Unobtainable. REVIEW OF SYSTEMS Respiratory: Shortness of breath apparent, on a Ventimask, congested. Cardiac: No history of chest pain, palpitations, syncope. Gastrointestinal: No abdominal pain, vomiting, diarrhea. Genitourinary: Incontinent of urine, currently with a Cole catheter inserted. No gross hematuria. PHYSICAL EXAMINATION: General: He was an elderly, contracted male who appeared in obvious respiratory distress, tachypneic. Vital Signs: The temperature was 98.3, pulse 122, blood pressure 100/61, respiratory rate 33, O2 saturation 93%. Neck: Supple with no adenopathy. Lungs: With coarse rhonchi bilaterally and rales. Heart: S1, S2. Tachycardic. No audible murmur. Abdomen: Nondistended. Hyperactive bowel sounds. Nontender. Extremities: With clubbing, cyanosis, or edema. DIAGNOSTIC DATA: The white count was 16.5, hemoglobin 8.1, platelets 322. ABGs showed 7.49, 31, oxygen 78. The BUN 38, creatinine 0.7. AST 11, alkaline phosphatase 160, bilirubin 0.3. Urinalysis: Leukocyte esterase 3+, WBCs 600, RBCs 500. Blood and urine cultures pending. Chest x-ray with complete opacification of the left hemithorax. ASSESSMENT: 1. Complete atelectasis of the left lung. 2. Respiratory failure. 3. Sepsis syndrome. 4. Urinary tract infection. 5. History of Alzheimer dementia. PLAN: Empiric therapy with vancomycin and Zosyn pending blood and urine cultures. Overall prognosis would appear poor. Pulmonary consult pending. FARHEEN CHERY M.D. [id number]
[2017-04-04] MEDS ORDERED: MUPIROCIN 2% TOPICAL OINTMENT FOR DECOLONIZATION NS SCH (10:00)
--- NOTE | 2017-04-04 10:54 | PN ---
Progress Note (short form) - Note Progress Note: downgrade to telemetry
[2017-04-04] MEDS: PIPERACILLIN/TAZOB 4.5 GM 4.5 GM in DEXTROSE 5%-WATER - 100 ML IVPB SCH ×2 (12:01→18:38)
[2017-04-04] MEDS ORDERED: PIPERACIL/TAZOB 3.375 GM 3.375 GM/50 ML PREMIX IVPB ONE (12:33)
[2017-04-04] MEDS: VANCOMYCIN 1,000 MG in DEXTROSE 5%-WATER - 250 ML IVPB SCH ×2 (14:19→22:24)
--- NOTE | 2017-04-04 16:28 | EKG ---
Test Reason : Blood Pressure : / mmHG Vent. Rate : 108 BPM Atrial Rate : 108 BPM P-R Int : 152 ms QRS Dur : 098 ms QT Int : 324 ms P-R-T Axes : -29 -44 102 degrees QTc Int : 434 ms SINUS TACHYCARDIA WITH PREMATURE SUPRAVENTRICULAR COMPLEXES LEFT AXIS DEVIATION LEFT VENTRICULAR HYPERTROPHY WITH REPOLARIZATION ABNORMALITY ABNORMAL ECG WHEN COMPARED WITH ECG OF 15-JAN-2017 09:02, T WAVE INVERSION LESS EVIDENT IN LATERAL LEADS Confirmed by NARINDER HENRY MD ([id number]) on 04/04/2017 4:28:05 PM Referred By: Confirmed By:NARINDER HENRY MD
[2017-04-04] MEDS ORDERED: CHLORHEXIDINE GLUCONATE 4% CLEANSER FOR DECOLONIZATION TP SCH (22:00)
[2017-04-05] MEDS: PIPERACILLIN/TAZOB 4.5 GM 4.5 GM in DEXTROSE 5%-WATER - 100 ML IVPB SCH ×3 (01:09→17:09)
[2017-04-05] MEDS: HEPARIN NA (PORCINE) 5,000 UNITS/ML 1ML VIAL SQ SCH ×3 (06:13→21:40)
[2017-04-05] MEDS ORDERED: PT OWN MED DRAWER 7, Y5N ONE ×2 (08:55→16:57)
[2017-04-05] MEDS: VANCOMYCIN 1,000 MG in DEXTROSE 5%-WATER - 250 ML IVPB SCH ×2 (09:25→21:38)
[2017-04-05] MEDS ORDERED: ACETAMINOPHEN 1000 MG/100 ML VIAL (NON FORMULARY) IVPB ONE (09:30)
--- NOTE | 2017-04-05 09:32 | PN ---
Progress Note, Physician Chief Complaint: No distress Appears comfortable - Current Medication List Current Medications: Active Medications Heparin Sodium (Porcine) (Heparin -) 5,000 unit SQ TID PIPPA Last Admin: 04/05/17 06:13 Dose: 5,000 unit Vancomycin HCl 1,000 mg/ (Dextrose) 250 mls @ 250 mls/hr IVPB BID PIPPA PRN Reason: Protocol Last Admin: 04/05/17 09:25 Dose: 250 mls/hr Piperacillin Sod/Tazobactam (Sod 4.5 gm/ Dextrose) 100 mls @ 200 mls/hr IVPB Q8H-IV PIPPA PRN Reason: Protocol Last Admin: 04/05/17 09:25 Dose: 200 mls/hr - Objective Vital Signs: Vital Signs Temperature 100.5 F H 04/05/17 05:22 Pulse Rate 114 H 04/05/17 05:22 Respiratory Rate 24 04/05/17 05:22 Blood Pressure 110/43 04/05/17 05:22 O2 Sat by Pulse Oximetry (%) 100 04/04/17 21:00 Constitutional: Yes: No Distress Cardiovascular: Yes: Regular Rate and Rhythm Respiratory: Yes: Diminished Gastrointestinal: Yes: Normal Bowel Sounds, Soft, Other (GT+). No: Tenderness Extremities: Yes: Other (contracted) Edema: No Labs: CBC, BMP 04/04/17 06:21 04/04/17 06:21 INR, PTT INR 1.29 (0.82-1.09) H 04/04/17 02:44 Problem List - Problems (1) Acute respiratory failure with hypoxia Code(s): J96.01 - ACUTE RESPIRATORY FAILURE WITH HYPOXIA (2) Atelectasis of left lung Code(s): J98.11 - ATELECTASIS (3) Pneumonia Code(s): J18.9 - PNEUMONIA, UNSPECIFIED ORGANISM (4) Sepsis Code(s): A41.9 - SEPSIS, UNSPECIFIED ORGANISM Qualifiers: Sepsis type: sepsis due to unspecified organism Qualified Code(s): A41.9 - Sepsis, unspecified organism (5) Dementia Code(s): F03.90 - UNSPECIFIED DEMENTIA WITHOUT BEHAVIORAL DISTURBANCE Qualifiers: Dementia type: Alzheimer's disease Alzheimer's disease onset: unspecified onset Dementia behavioral disturbance: without behavioral disturbance Qualified Code(s): G30.9 - Alzheimer's disease, unspecified; F02.80 - Dementia in other diseases classified elsewhere without behavioral disturbance; F02.80 - Dementia in other diseases classified elsewhere without behavioral disturbance; F02.80 - Dementia in other diseases classified elsewhere without behavioral disturbance Assessment/Plan PLAN Needs chest PT for atelectasis IV antibiotics Nebs, O2 Resume GT feeding blood cultures negative Has chronic moya from [place] iv fluids -- may dc tomorrow DVT prophylaxis-- Heparin sc DNR/DNI
[2017-04-05] MEDS ORDERED: ACETAMINOPHEN 325 MG SUPP.RECT PR PRN (10:59)
[2017-04-05] MEDS: SODIUM CHLORIDE 0.45% 1,000 ML IV SCH (11:00)
--- NOTE | 2017-04-05 15:24 | CON.PULM ---
Consult Consult Specialty:: PULMONARY Referred by:: Dr. Perez Reason for Consultation:: pneumonia - History of Present Illness Chief Complaint: fever History of Present Illness: 86yo male with h/o HTN, hyperlipidemia, CKD, schizoaffective disorder, dementia s/p PEG who was transferred from the longterm for fevers and hypotension. Pt is nonverbal at baseline, unable to obtain further history at this time. Febrile to 100.9 on presentation, urinalysis suggestive of UTI. CXR with complete atelectasis of left hemithorax. Has been admitted for aspiration pneumonia in the past. Hypoxic to 80% in the ER, placed on NRB now on 40% ventimask. - History Source History Provided By: Medical Record Limitations to Obtaining History: Dementia - Past Medical History [employer]: Yes: Dementia Cardio/Vascular: Yes: HTN, Hyperlipdemia - Alcohol/Substance Use Hx Alcohol Use: No - Smoking History Smoking history: Never smoked Have you smoked in the past 12 months: No Home Medications - Allergies Allergies/Adverse Reactions: Allergies Allergy/AdvReac Type Severity Reaction Status Date / Time No Known Allergies Allergy Verified 02/13/17 04:40 - Home Medications Home Medications: Ambulatory Orders Acetaminophen [Pain Relief] 650 mg GT Q6H PRN 04/04/17 Albuterol 0.083% Nebulizer Kim [Ventolin 0.083%] 1 neb NEB Q4H PRN 04/04/17 Amlodipine Besylate [Norvasc -] 10 mg GT DAILY 04/04/17 Aspirin 81 mg GT DAILY 04/04/17 Atorvastatin Ca [Lipitor] 20 mg GT HS 04/04/17 Cholecalciferol (Vitamin D3) [Vitamin D3] 1,000 unit GT DAILY 04/04/17 Clotrimazole/Betamet Diprop [Lotrisone Cream (Small Tube)] 1 applic TP BID 04/04 Dextran 70/Hypromellose [Artificial Tears Eye Drops] 1 drop OU BID 04/04/17 Docusate Liquid [Colace Liquid -] 10 ml GT BID 04/04/17 Ipratropium 0.02% Nebulizer [Atrovent] 1 neb NEB Q4H PRN 04/04/17 Lorazepam [Ativan] 0.5 mg GT BID 04/04/17 Metoprolol Tartrate [Lopressor -] 25 mg GT BID 04/04/17 Mirtazapine 7.5 mg GT HS 04/04/17 Pantoprazole Sodium [Protonix -] 40 mg GT DAILY 04/04/17 Potassium Chloride 15 ml GT DAILY 04/04/17 Ranitidine HCl 20 mg GT HS 04/04/17 Silver Sulfadiazine 1% Top Cr [Silvadene -] 1 applic TP BID 04/04/17 Tamsulosin HCl 0.4 mg GT HS 04/04/17 Zinc Oxide 20% Topical Oint 454 gm NR ASDIR 04/04/17 Review of Systems Unable to obtain ROS, reason: pt nonverbal Physical Exam Vital Sings: Vital Signs Temperature 100.1 F H 04/05/17 14:00 Pulse Rate 104 H 04/05/17 14:00 Respiratory Rate 28 H 04/05/17 10:00 Blood Pressure 103/54 04/05/17 14:00 O2 Sat by Pulse Oximetry (%) 95 04/05/17 10:00 Constitutional: Yes: Mild Distress (mildly tachypneic at rest) Eyes: Yes: Conjunctiva Clear HENT: Yes: Atraumatic, Normocephalic Neck: Yes: Supple, Trachea Midline Cardiovascular: Yes: Regular Rate and Rhythm Respiratory: Yes: Diminished (decreased breath sounds on left) ...Clubbing: No Gastrointestinal: Yes: Normal Bowel Sounds, Soft, Other (+PEG). No: Tenderness Edema: No Labs: CBC, BMP 04/04/17 06:21 04/04/17 06:21 ABG Results ABG pH 7.49 (7.35-7.45) H 04/04/17 06:21 ABG pCO2 at Pt Temp 31.0 mmHg (35-45) L 04/04/17 06:21 ABG pO2 at Pt Temp 78.2 mmHg (68-100) 04/04/17 06:21 ABG HCO3 23.4 meq/L (22-26) 04/04/17 06:21 ABG O2 Sat (Measured) 96.2 % (90-98.9) 04/04/17 06:21 ABG O2 Content 11.1 % vol (15-22) L 04/04/17 06:21 ABG Base Excess 0.7 meq/l (-2-2) 04/04/17 06:21 Imaging - Results Chest X-ray: Report Reviewed, Image Reviewed (opacification of left hemithorax) Problem List - Problems (1) Acute respiratory failure with hypoxia Code(s): J96.01 - ACUTE RESPIRATORY FAILURE WITH HYPOXIA (2) Sepsis Code(s): A41.9 - SEPSIS, UNSPECIFIED ORGANISM Qualifiers: Sepsis type: sepsis due to unspecified organism Qualified Code(s): A41.9 - Sepsis, unspecified organism (3) UTI (urinary tract infection) Code(s): N39.0 - URINARY TRACT INFECTION, SITE NOT SPECIFIED Qualifiers: Urinary tract infection type: site unspecified Hematuria presence: without hematuria Qualified Code(s): N39.0 - Urinary tract infection, site not specified (4) Atelectasis of left lung Code(s): J98.11 - ATELECTASIS (5) Pneumonia Code(s): J18.9 - PNEUMONIA, UNSPECIFIED ORGANISM (6) Dementia Code(s): F03.90 - UNSPECIFIED DEMENTIA WITHOUT BEHAVIORAL DISTURBANCE Qualifiers: Dementia type: Alzheimer's disease Alzheimer's disease onset: unspecified onset Dementia behavioral disturbance: without behavioral disturbance Qualified Code(s): G30.9 - Alzheimer's disease, unspecified; F02.80 - Dementia in other diseases classified elsewhere without behavioral disturbance; F02.80 - Dementia in other diseases classified elsewhere without behavioral disturbance; F02.80 - Dementia in other diseases classified elsewhere without behavioral disturbance Assessment/Plan Acute Hypoxic Respiratory Failure UTI Sepsis Left Atelectasis r/o Pneumonia HTN Hyperlipidemia Alzheimer's Dementia - IV antibiotics to cover health care acquired organisms - f/u cultures - IVF - O2 to keep SpO2 >90% - position right side down if possible, discussed with nursing who states that due to his contractions, difficult to position pt - inhaled bronchodilators with mucomyst - chest PT - poor candidate for invasive procedures - aspiration precautions - DVT prophylaxis
--- NOTE | 2017-04-05 15:40 | PN ---
Progress Note, Physician History of Present Illness: Not verbally responsive Breathing non-labored Low grade temp WBC elevated 16K BC no growth Urine c/s LF - Current Medication List Current Medications: Active Medications Acetaminophen (Tylenol Suppository -) 325 mg CO Q6H PRN PRN Reason: FEVER Heparin Sodium (Porcine) (Heparin -) 5,000 unit SQ TID PIPPA Last Admin: 04/05/17 15:05 Dose: 5,000 unit Vancomycin HCl 1,000 mg/ (Dextrose) 250 mls @ 250 mls/hr IVPB BID PIPPA PRN Reason: Protocol Last Admin: 04/05/17 09:25 Dose: 250 mls/hr Piperacillin Sod/Tazobactam (Sod 4.5 gm/ Dextrose) 100 mls @ 200 mls/hr IVPB Q8H-IV PIPPA PRN Reason: Protocol Last Admin: 04/05/17 09:25 Dose: 200 mls/hr Sodium Chloride (1/2 Normal Saline) 1,000 mls @ 70 mls/hr IV ASDIR PIPPA Last Admin: 04/05/17 11:00 Dose: 70 mls/hr - Objective Vital Signs: Vital Signs Temperature 100.1 F H 04/05/17 14:00 Pulse Rate 104 H 04/05/17 14:00 Respiratory Rate 28 H 04/05/17 10:00 Blood Pressure 103/54 04/05/17 14:00 O2 Sat by Pulse Oximetry (%) 95 04/05/17 10:00 Constitutional: Yes: No Distress Cardiovascular: Yes: Regular Rate and Rhythm, S1, S2 Respiratory: Yes: Diminished Gastrointestinal: Yes: Normal Bowel Sounds, Soft. No: Tenderness Edema: Yes Labs: CBC, BMP 04/04/17 06:21 04/04/17 06:21 INR, PTT INR 1.29 (0.82-1.09) H 04/04/17 02:44 Assessment/Plan Sepsis Respiratory failure Pneumonia/ atelectasis UTI OBS Await c/s Continue empiric zosyn/ vancomycin
[2017-04-06] MEDS: PIPERACILLIN/TAZOB 4.5 GM 4.5 GM in DEXTROSE 5%-WATER - 100 ML IVPB SCH ×2 (02:43→09:07)
[2017-04-06] MEDS: HEPARIN NA (PORCINE) 5,000 UNITS/ML 1ML VIAL SQ SCH ×3 (05:42→21:17)
[2017-04-06 07:27] LABS: ALBUMIN 1.3 g/dl (3.4-5.0); ANION GAP 14 (8-16); BLOOD UREA NITROGEN 32 mg/dL (7-18); CALCIUM 7.7 mg/dL (8.5-10.1); CHLORIDE 105 mmol/L (98-107); CO2 23 mmol/L (21-32); GLUCOSE,RANDOM 101 mg/dL (74-106); SODIUM 142 mmol/L (136-145)
[2017-04-06 07:32] LABS: ALK PHOS 121 U/L (45-117); BILIRUBIN,TOTAL 0.4 mg/dL (0.2-1.0); CREATININE 0.7 mg/dL (0.7-1.3); SGOT/AST 11 U/L (15-37); SGPT/ALT 12 U/L (12-78); TOT PROT 4.8 g/dl (6.4-8.2)
[2017-04-06] MEDS ORDERED: PT OWN MED DRAWER 7, Y5N ONE ×2 (07:41→11:30)
[2017-04-06 07:49] LABS: BASO % 0.4 % (0-2.0); EOS % 0.3 % (0-4.5); HEMATOCRIT 22.3 % (35.4-49); LYMPH % 7.7 % (8-40); MCH 26.3 pg (25.7-33.7); MCHC 31.4 g/dl (32.0-35.9); MEAN CELL VOLUME 83.9 fl (80-96); MEAN PLT VOLUME 9.1 fl (7.5-11.1); MONO % 4.3 % (3.8-10.2); NEUT % 87.3 % (42.8-82.8); PLATELET COUNT 333 K/MM3 (134-434); POTASSIUM 2.9 mmol/L (3.5-5.1); RBC 2.66 M/mm3 (4.00-5.60); RDW 16.4 % (11.9-15.9); WHITE BLOOD COUNT 15.9 K/mm3 (4.0-10.0)
[2017-04-06] MEDS: VANCOMYCIN 1,000 MG in DEXTROSE 5%-WATER - 250 ML IVPB SCH (09:07)
[2017-04-06] MEDS ORDERED: POTASSIUM CHLORIDE TABS 20 MEQ TABLET.ER (FP) PO ONE (10:07)
--- NOTE | 2017-04-06 11:30 | PN ---
Progress Note, Physician History of Present Illness: Pt seen/ examined. weak. contracted All f/u noted/ chart reviewed having fever. decrease in h/h- - Current Medication List Current Medications: Active Medications Acetaminophen (Tylenol Suppository -) 325 mg FL Q6H PRN PRN Reason: FEVER Heparin Sodium (Porcine) (Heparin -) 5,000 unit SQ TID PIPPA Last Admin: 04/06/17 05:42 Dose: 5,000 unit Vancomycin HCl 1,000 mg/ (Dextrose) 250 mls @ 250 mls/hr IVPB BID PIPPA PRN Reason: Protocol Last Admin: 04/06/17 09:07 Dose: 250 mls/hr Piperacillin Sod/Tazobactam (Sod 4.5 gm/ Dextrose) 100 mls @ 200 mls/hr IVPB Q8H-IV PIPPA PRN Reason: Protocol Last Admin: 04/06/17 09:07 Dose: 200 mls/hr Sodium Chloride (1/2 Normal Saline) 1,000 mls @ 70 mls/hr IV ASDIR PIPPA Last Admin: 04/05/17 11:00 Dose: 70 mls/hr - Objective Vital Signs: Vital Signs Temperature 99.7 F H 04/06/17 09:16 Pulse Rate 115 H 04/06/17 09:16 Respiratory Rate 26 H 04/06/17 09:16 Blood Pressure 107/42 04/06/17 09:16 O2 Sat by Pulse Oximetry (%) 99 04/06/17 09:16 Constitutional: Yes: No Distress, Pallor Eyes: Yes: Conjunctiva Clear Neck: Yes: Supple Cardiovascular: Yes: Regular Rate and Rhythm Respiratory: Yes: Diminished Gastrointestinal: Yes: Soft, Other (peg +) Edema: No Labs: CBC, BMP 04/06/17 06:30 04/06/17 06:30 INR, PTT INR 1.29 (0.82-1.09) H 04/04/17 02:44 Problem List - Problems (1) Anemia Code(s): D64.9 - ANEMIA, UNSPECIFIED (2) Hypokalemia Code(s): E87.6 - HYPOKALEMIA (3) Acute respiratory failure with hypoxia Code(s): J96.01 - ACUTE RESPIRATORY FAILURE WITH HYPOXIA (4) Pneumonia Code(s): J18.9 - PNEUMONIA, UNSPECIFIED ORGANISM (5) Dementia Code(s): F03.90 - UNSPECIFIED DEMENTIA WITHOUT BEHAVIORAL DISTURBANCE Qualifiers: Dementia type: Alzheimer's disease Alzheimer's disease onset: unspecified onset Dementia behavioral disturbance: without behavioral disturbance Qualified Code(s): G30.9 - Alzheimer's disease, unspecified; F02.80 - Dementia in other diseases classified elsewhere without behavioral disturbance; F02.80 - Dementia in other diseases classified elsewhere without behavioral disturbance; F02.80 - Dementia in other diseases classified elsewhere without behavioral disturbance Assessment/Plan Transfuse. post transfusion cbc supplement k continue other meds Abx condition gaurded pt is dnr/di discussed with nursing staff. will follow. time spend 25 min.
--- NOTE | 2017-04-06 11:40 | PN ---
Progress Note, Physician Chief Complaint: FEBRILE History of Present Illness: REVIEWED - Current Medication List Current Medications: Active Medications Acetaminophen (Tylenol Suppository -) 325 mg MA Q6H PRN PRN Reason: FEVER Heparin Sodium (Porcine) (Heparin -) 5,000 unit SQ TID PIPPA Last Admin: 04/06/17 05:42 Dose: 5,000 unit Vancomycin HCl 1,000 mg/ (Dextrose) 250 mls @ 250 mls/hr IVPB BID PIPPA PRN Reason: Protocol Last Admin: 04/06/17 09:07 Dose: 250 mls/hr Piperacillin Sod/Tazobactam (Sod 4.5 gm/ Dextrose) 100 mls @ 200 mls/hr IVPB Q8H-IV PIPPA PRN Reason: Protocol Last Admin: 04/06/17 09:07 Dose: 200 mls/hr Sodium Chloride (1/2 Normal Saline) 1,000 mls @ 70 mls/hr IV ASDIR PIPPA Last Admin: 04/05/17 11:00 Dose: 70 mls/hr - Objective Vital Signs: Vital Signs Temperature 99.7 F H 04/06/17 09:16 Pulse Rate 115 H 04/06/17 09:16 Respiratory Rate 26 H 04/06/17 09:16 Blood Pressure 107/42 04/06/17 09:16 O2 Sat by Pulse Oximetry (%) 99 04/06/17 09:16 Constitutional: Yes: Pallor HENT: Yes: Normocephalic Neck: Yes: Other (TRACHEA DEVIATED TO LEFT) Cardiovascular: Yes: S1, S2 Respiratory: Yes: Diminished (ON LEFT) Gastrointestinal: Yes: Soft Extremities: Yes: Other (B/L CONTRACTED LOWER EXT) Neurological: Yes: Other (POORLY RESPONSIVE) Labs: CBC, BMP 04/06/17 06:30 04/06/17 06:30 INR, PTT INR 1.29 (0.82-1.09) H 04/04/17 02:44 - ....Imaging Chest X-ray: Report Reviewed, Image Reviewed Problem List - Problems (1) Acute respiratory failure with hypoxia Code(s): J96.01 - ACUTE RESPIRATORY FAILURE WITH HYPOXIA (2) Atelectasis of left lung Code(s): J98.11 - ATELECTASIS (3) Pleural effusion on left Code(s): J90 - PLEURAL EFFUSION, NOT ELSEWHERE CLASSIFIED (4) Pneumonia Code(s): J18.9 - PNEUMONIA, UNSPECIFIED ORGANISM (5) Respiratory failure Code(s): J96.90 - RESPIRATORY FAILURE, UNSP, UNSP W HYPOXIA OR HYPERCAPNIA (6) Sepsis Code(s): A41.9 - SEPSIS, UNSPECIFIED ORGANISM Qualifiers: Sepsis type: sepsis due to unspecified organism Qualified Code(s): A41.9 - Sepsis, unspecified organism (7) UTI (urinary tract infection) Code(s): N39.0 - URINARY TRACT INFECTION, SITE NOT SPECIFIED Qualifiers: Urinary tract infection type: site unspecified Hematuria presence: without hematuria Qualified Code(s): N39.0 - Urinary tract infection, site not specified (8) Aspiration pneumonia Code(s): J69.0 - PNEUMONITIS DUE TO INHALATION OF FOOD AND VOMIT Qualifiers: Aspiration pneumonia type: unspecified Laterality: right Lung location: lower lobe of lung Qualified Code(s): J69.0 - Pneumonitis due to inhalation of food and vomit Assessment/Plan Acute Hypoxic Respiratory Failure UTI Sepsis Left Atelectasis r/o Pneumonia HTN Hyperlipidemia Alzheimer's Dementia - IV antibiotics to cover health care acquired organisms - f/u cultures - IVF - O2 to keep SpO2 >90% - inhaled bronchodilators with mucomyst - chest PT - poor candidate for invasive procedures - aspiration precautions - DVT prophylaxislucille TOLEDO MD
[2017-04-06] MEDS ORDERED: POTASSIUM CHLORIDE ORAL LIQUID 20 MEQ/15 ML PEG ONE (12:00)
[2017-04-06] MEDS: ACETAMINOPHEN 650 MG/20.3 ML ORAL SOLUTION (CUPS) PEG PRN (12:06)
--- NOTE | 2017-04-06 14:01 | PN ---
Progress Note, Physician History of Present Illness: Not verbally responsive Breathing non-labored Remans febrile WBC elevated 15.9K BC no growth Urine c/s LF - Current Medication List Current Medications: Active Medications Acetaminophen (Tylenol Suppository -) 325 mg FL Q6H PRN PRN Reason: FEVER Acetaminophen (Tylenol Oral Solution -) 325 mg PEG Q6H PRN PRN Reason: FEVER/PAIN Last Admin: 04/06/17 12:06 Dose: 325 mg Heparin Sodium (Porcine) (Heparin -) 5,000 unit SQ TID PIPPA Last Admin: 04/06/17 05:42 Dose: 5,000 unit Vancomycin HCl 1,000 mg/ (Dextrose) 250 mls @ 250 mls/hr IVPB BID PIPPA PRN Reason: Protocol Last Admin: 04/06/17 09:07 Dose: 250 mls/hr Piperacillin Sod/Tazobactam (Sod 4.5 gm/ Dextrose) 100 mls @ 200 mls/hr IVPB Q8H-IV PIPPA PRN Reason: Protocol Last Admin: 04/06/17 09:07 Dose: 200 mls/hr Sodium Chloride (1/2 Normal Saline) 1,000 mls @ 70 mls/hr IV ASDIR PIPPA Last Admin: 04/05/17 11:00 Dose: 70 mls/hr - Objective Vital Signs: Vital Signs Temperature 98.6 F 04/06/17 12:07 Pulse Rate 115 H 04/06/17 09:16 Respiratory Rate 26 H 04/06/17 09:16 Blood Pressure 107/42 04/06/17 09:16 O2 Sat by Pulse Oximetry (%) 99 04/06/17 09:16 Constitutional: Yes: No Distress Cardiovascular: Yes: Regular Rate and Rhythm, S1, S2 Respiratory: Yes: Diminished Gastrointestinal: Yes: Normal Bowel Sounds, Soft. No: Tenderness Edema: Yes Labs: CBC, BMP 04/06/17 06:30 04/06/17 06:30 INR, PTT INR 1.29 (0.82-1.09) H 04/04/17 02:44 Assessment/Plan Sepsis Respiratory failure Pneumonia/ atelectasis UTI OBS Await c/s Continue empiric zosyn D/C vancomycin
[2017-04-06] MEDS: SODIUM CHLORIDE 0.45% 1,000 ML IV SCH (16:20)
[2017-04-06] MEDS: ERTAPENEM SODIUM 0.5 GM in SODIUM CHLORIDE 100 ML IVPB SCH (16:20)
[2017-04-06 17:34] LABS: BASO % 0.2 % (0-2.0); EOS % 0.8 % (0-4.5); HEMATOCRIT 26.8 % (35.4-49); HEMOGLOBIN 8.7 GM/dL (11.7-16.9); MCH 27.7 pg (25.7-33.7); MCHC 32.4 g/dl (32.0-35.9); MEAN CELL VOLUME 85.4 fl (80-96); MEAN PLT VOLUME 8.7 fl (7.5-11.1); MONO % 4.8 % (3.8-10.2); NEUT % 84.2 % (42.8-82.8); PLATELET COUNT 337 K/MM3 (134-434); RBC 3.13 M/mm3 (4.00-5.60); RDW 16.8 % (11.9-15.9)
[2017-04-07] MEDS: HEPARIN NA (PORCINE) 5,000 UNITS/ML 1ML VIAL SQ SCH ×3 (05:46→22:14)
[2017-04-07 06:51] LABS: BASO % 0.5 % (0-2.0); EOS % 1.3 % (0-4.5); HEMATOCRIT 27.8 % (35.4-49); HEMOGLOBIN 9.1 GM/dL (11.7-16.9); MCH 27.8 pg (25.7-33.7); MCHC 32.8 g/dl (32.0-35.9); MEAN CELL VOLUME 84.7 fl (80-96); MEAN PLT VOLUME 8.8 fl (7.5-11.1); MONO % 5.3 % (3.8-10.2); NEUT % 82.9 % (42.8-82.8); PLATELET COUNT 343 K/MM3 (134-434); RBC 3.28 M/mm3 (4.00-5.60); RDW 16.4 % (11.9-15.9)
[2017-04-07 07:02] LABS: CHLORIDE 106 mmol/L (98-107); POTASSIUM 3.3 mmol/L (3.5-5.1); SGOT/AST 15 U/L (15-37); SGPT/ALT 14 U/L (12-78); SODIUM 140 mmol/L (136-145)
[2017-04-07 07:07] LABS: ALBUMIN 1.4 g/dl (3.4-5.0); ALK PHOS 143 U/L (45-117); ANION GAP 12 (8-16); BILIRUBIN,TOTAL 0.4 mg/dL (0.2-1.0); BLOOD UREA NITROGEN 23 mg/dL (7-18); CALCIUM 7.6 mg/dL (8.5-10.1); CO2 22 mmol/L (21-32); CREATININE 0.5 mg/dL (0.7-1.3); GLUCOSE,RANDOM 111 mg/dL (74-106)
[2017-04-07] MEDS: ACETAMINOPHEN 650 MG/20.3 ML ORAL SOLUTION (CUPS) PEG PRN ×2 (08:20→15:03)
[2017-04-07] MEDS ORDERED: PT OWN MED DRAWER 7, Y5N ONE ×2 (09:05→09:56)
[2017-04-07] MEDS: ERTAPENEM SODIUM 0.5 GM in SODIUM CHLORIDE 100 ML IVPB SCH (10:47)
[2017-04-07] MEDS ORDERED: POTASSIUM CHLORIDE ORAL LIQUID 20 MEQ/15 ML GT ONE (11:05)
--- NOTE | 2017-04-07 11:05 | PN ---
Progress Note, Physician Chief Complaint: No distress Appears comfortable - Current Medication List Current Medications: Active Medications Acetaminophen (Tylenol Suppository -) 325 mg IA Q6H PRN PRN Reason: FEVER Acetaminophen (Tylenol Oral Solution -) 325 mg PEG Q6H PRN PRN Reason: FEVER/PAIN Last Admin: 04/07/17 08:20 Dose: 325 mg Heparin Sodium (Porcine) (Heparin -) 5,000 unit SQ TID [facility] Last Admin: 04/07/17 05:46 Dose: 5,000 unit Sodium Chloride (1/2 Normal Saline) 1,000 mls @ 70 mls/hr IV ASDIR [facility] Last Admin: 04/06/17 16:20 Dose: 70 mls/hr Ertapenem 0.5 gm/ Sodium (Chloride) 100 mls @ 200 mls/hr IVPB DAILY [facility] PRN Reason: Protocol Last Admin: 04/07/17 10:47 Dose: 200 mls/hr - Objective Vital Signs: Vital Signs Temperature 100.8 F H 04/07/17 10:00 Pulse Rate 114 H 04/07/17 10:00 Respiratory Rate 22 04/07/17 10:00 Blood Pressure 122/82 04/07/17 10:00 O2 Sat by Pulse Oximetry (%) 100 04/06/17 21:00 Constitutional: Yes: No Distress Cardiovascular: Yes: Regular Rate and Rhythm Respiratory: Yes: Diminished Gastrointestinal: Yes: Normal Bowel Sounds, Soft, Other (GT+). No: Tenderness Edema: No Labs: CBC, BMP 04/07/17 05:10 04/07/17 05:10 INR, PTT INR 1.29 (0.82-1.09) H 04/04/17 02:44 Problem List - Problems (1) Acute respiratory failure with hypoxia Code(s): J96.01 - ACUTE RESPIRATORY FAILURE WITH HYPOXIA (2) Atelectasis of left lung Code(s): J98.11 - ATELECTASIS (3) Pneumonia Code(s): J18.9 - PNEUMONIA, UNSPECIFIED ORGANISM (4) Sepsis Code(s): A41.9 - SEPSIS, UNSPECIFIED ORGANISM Qualifiers: Sepsis type: sepsis due to unspecified organism Qualified Code(s): A41.9 - Sepsis, unspecified organism (5) Dementia Code(s): F03.90 - UNSPECIFIED DEMENTIA WITHOUT BEHAVIORAL DISTURBANCE Qualifiers: Dementia type: Alzheimer's disease Alzheimer's disease onset: unspecified onset Dementia behavioral disturbance: without behavioral disturbance Qualified Code(s): G30.9 - Alzheimer's disease, unspecified; F02.80 - Dementia in other diseases classified elsewhere without behavioral disturbance; F02.80 - Dementia in other diseases classified elsewhere without behavioral disturbance; F02.80 - Dementia in other diseases classified elsewhere without behavioral disturbance Assessment/Plan PLAN chest PT for atelectasis IV antibiotics Nebs, O2 on GT feeding blood cultures negative Has vinnie moya from [place] replace potassium Cardiology eval for SVT DVT prophylaxis-- Heparin sc DNR/DNI
[2017-04-07] MEDS ORDERED: SODIUM CHLORIDE 0.45%/POT 20 MEQ/1,000 ML INFUS.BAG IV SCH (11:06)
--- NOTE | 2017-04-07 11:56 | CON.CARD ---
Consult Consult Specialty:: Cardiology Referred by:: Elena Perez MD Reason for Consultation:: PSVT - History of Present Illness Chief Complaint: Sepsis History of Present Illness: 86 y/o male from [facility] h/o HTN, HLD, CVA, DVT, BPH, UTI, senile dementia alzheimers type, schizoaffective disorder non-verbal s/p PEG admitted for fevers and hypotension. Pt is nonverbal at baseline, unable to obtain further history at this time. Febrile to 100.9 on presentation, urinalysis suggestive of UTI. CXR with complete atelectasis of left hemithorax. Has been admitted for aspiration pneumonia in the past. Hypoxic to 80% in the ER, initally placed on NRB now comfortable on NC. 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 Cardio/Vascular: Yes: HTN, Hyperlipdemia - Alcohol/Substance Use Hx Alcohol Use: No - Smoking History Smoking history: Never smoked Have you smoked in the past 12 months: No Home Medications - Allergies Allergies/Adverse Reactions: Allergies Allergy/AdvReac Type Severity Reaction Status Date / Time No Known Allergies Allergy Verified 02/13/17 04:40 - Home Medications Home Medications: Ambulatory Orders Acetaminophen [Pain Relief] 650 mg GT Q6H PRN 04/04/17 Albuterol 0.083% Nebulizer Kim [Ventolin 0.083%] 1 neb NEB Q4H PRN 04/04/17 Amlodipine Besylate [Norvasc -] 10 mg GT DAILY 04/04/17 Aspirin 81 mg GT DAILY 04/04/17 Atorvastatin Ca [Lipitor] 20 mg GT HS 04/04/17 Cholecalciferol (Vitamin D3) [Vitamin D3] 1,000 unit GT DAILY 04/04/17 Clotrimazole/Betamet Diprop [Lotrisone Cream (Small Tube)] 1 applic TP BID 04/04 Dextran 70/Hypromellose [Artificial Tears Eye Drops] 1 drop OU BID 04/04/17 Docusate Liquid [Colace Liquid -] 10 ml GT BID 04/04/17 Ipratropium 0.02% Nebulizer [Atrovent] 1 neb NEB Q4H PRN 04/04/17 Lorazepam [Ativan] 0.5 mg GT BID 04/04/17 Metoprolol Tartrate [Lopressor -] 25 mg GT BID 04/04/17 Mirtazapine 7.5 mg GT HS 04/04/17 Pantoprazole Sodium [Protonix -] 40 mg GT DAILY 04/04/17 Potassium Chloride 15 ml GT DAILY 04/04/17 Ranitidine HCl 20 mg GT HS 04/04/17 Silver Sulfadiazine 1% Top Cr [Silvadene -] 1 applic TP BID 04/04/17 Tamsulosin HCl 0.4 mg GT 04/04/17 Zinc Oxide 20% Topical Oint 454 gm NR ASDIR 04/04/17 Vital Signs: Vital Signs Temperature 100.8 F H 04/07/17 10:00 Pulse Rate 114 H 04/07/17 10:00 Respiratory Rate 22 04/07/17 10:00 Blood Pressure 122/82 04/07/17 10:00 O2 Sat by Pulse Oximetry (%) 100 04/06/17 21:00 Constitutional: Yes: No Distress, Calm, Thin Neck: Yes: Supple Respiratory: Yes: Regular, On Nasal O2, Rhonchi Gastrointestinal: Yes: Normal Bowel Sounds, Soft Cardiovascular: Yes: Tachycardia JVD: No Carotid Bruit: No Heart Sounds: Yes: S1, S2 Murmur: Yes: Systolic Murmur, Grade 1 Edema: No - Other Data Labs, Other Data: CBC, BMP 04/07/17 05:10 04/07/17 05:10 INR, PTT INR 1.29 (0.82-1.09) H 04/04/17 02:44 ST @ 108 LVH, LAD Imaging - Results Chest X-ray: Report Reviewed (Left white-out) Problem List - Problems (1) Acute respiratory failure with hypoxia Code(s): J96.01 - ACUTE RESPIRATORY FAILURE WITH HYPOXIA (2) Atelectasis of left lung Code(s): J98.11 - ATELECTASIS (3) Hypokalemia Code(s): E87.6 - HYPOKALEMIA (4) Sepsis Code(s): A41.9 - SEPSIS, UNSPECIFIED ORGANISM Qualifiers: Sepsis type: sepsis due to unspecified organism Qualified Code(s): A41.9 - Sepsis, unspecified organism (5) UTI (urinary tract infection) Code(s): N39.0 - URINARY TRACT INFECTION, SITE NOT SPECIFIED Qualifiers: Urinary tract infection type: site unspecified Hematuria presence: without hematuria Qualified Code(s): N39.0 - Urinary tract infection, site not specified (6) Aspiration pneumonia Code(s): J69.0 - PNEUMONITIS DUE TO INHALATION OF FOOD AND VOMIT Qualifiers: Aspiration pneumonia type: unspecified Laterality: right Lung location: lower lobe of lung Qualified Code(s): J69.0 - Pneumonitis due to inhalation of food and vomit (7) Paroxysmal supraventricular tachycardia seen on cardiac catheterization technician Code(s): I47.1 - SUPRAVENTRICULAR TACHYCARDIA (8) Stress ulcer of stomach Code(s): K25.9 - GASTRIC ULCER, UNSP ACUTE OR CHRONIC, W/O HEMOR OR PERF Assessment/Plan 1. Acute Hypoxic Respiratory Failure due to left atelectasis, r/o PNA 2. UTI with underlying h/o urinary retention 3. Sepsis 4. Paroxysmal supraventricular tachycardia -> NSR 5. H/o hematemesis referable to stress gastritis with possible aspiration pneumonia 6. HTN 7. Dementia post PEG P: 1. Resume Lopressor 25 bid 2. Check electrolytes and replete K as you are 3. Complete empiric Zosyn course per C&S, moya 4. O2 to keep SpO2 >90%, inhaled bronchodilators with mucomyst, chest PT 5. Aspiration precautions 6. DVT and GI prophylaxis, enteral feeds and judicious hydration
[2017-04-07] MEDS: METOPROLOL TARTRATE 25 MG TABLET (FP) PEG SCH ×2 (12:55→22:14)
[2017-04-07] MEDS: RANITIDINE HCL 150 MG/10 ML UNIT-DOSE PEG SCH (12:55)
--- NOTE | 2017-04-07 13:50 | PN ---
Progress Note, Physician Chief Complaint: FEBRILE History of Present Illness: REVIEWED - Current Medication List Current Medications: Active Medications Acetaminophen (Tylenol Suppository -) 325 mg [place] Q6H PRN PRN Reason: FEVER Acetaminophen (Tylenol Oral Solution -) 325 mg PEG Q6H PRN PRN Reason: FEVER/PAIN Last Admin: 04/07/17 08:20 Dose: 325 mg Heparin Sodium (Porcine) (Heparin -) 5,000 unit SQ TID [facility] Last Admin: 04/07/17 05:46 Dose: 5,000 unit Ertapenem 0.5 gm/ Sodium (Chloride) 100 mls @ 200 mls/hr IVPB DAILY [facility] PRN Reason: Protocol Last Admin: 04/07/17 10:47 Dose: 200 mls/hr Potassium Chloride/Sodium Chloride (1/2ns+20meq Kcl) 20 meq in 1,000 mls @ 70 mls/hr IV ASDIR [facility] Metoprolol Tartrate (Lopressor -) 25 mg PEG BID [facility] Last Admin: 04/07/17 12:55 Dose: 25 mg Ranitidine HCl (Zantac Oral Solution -) 150 mg PEG DAILY [facility] Last Admin: 04/07/17 12:55 Dose: 150 mg - Objective Vital Signs: Vital Signs Temperature 100.8 F H 04/07/17 10:00 Pulse Rate 114 H 04/07/17 10:00 Respiratory Rate 22 04/07/17 10:00 Blood Pressure 122/82 04/07/17 10:00 O2 Sat by Pulse Oximetry (%) 100 04/06/17 21:00 Constitutional: Yes: Calm Eyes: Yes: EOM Intact HENT: Yes: Normocephalic Cardiovascular: Yes: S1, S2 Respiratory: Yes: Diminished Gastrointestinal: Yes: Soft Edema: LLE: Trace, RLE: Trace Labs: CBC, BMP 04/07/17 05:10 04/07/17 05:10 INR, PTT INR 1.29 (0.82-1.09) H 04/04/17 02:44 - ....Imaging Chest X-ray: Report Reviewed, Image Reviewed EKG: Report Reviewed Problem List - Problems (1) Acute respiratory failure with hypoxia Code(s): J96.01 - ACUTE RESPIRATORY FAILURE WITH HYPOXIA (2) Atelectasis of left lung Code(s): J98.11 - ATELECTASIS (3) Pleural effusion on left Code(s): J90 - PLEURAL EFFUSION, NOT ELSEWHERE CLASSIFIED (4) Pneumonia Code(s): J18.9 - PNEUMONIA, UNSPECIFIED ORGANISM (5) Respiratory failure Code(s): J96.90 - RESPIRATORY FAILURE, UNSP, UNSP W HYPOXIA OR HYPERCAPNIA (6) Sepsis Code(s): A41.9 - SEPSIS, UNSPECIFIED ORGANISM Qualifiers: Sepsis type: sepsis due to unspecified organism Qualified Code(s): A41.9 - Sepsis, unspecified organism (7) UTI (urinary tract infection) Code(s): N39.0 - URINARY TRACT INFECTION, SITE NOT SPECIFIED Qualifiers: Urinary tract infection type: site unspecified Hematuria presence: without hematuria Qualified Code(s): N39.0 - Urinary tract infection, site not specified (8) Aspiration pneumonia Code(s): J69.0 - PNEUMONITIS DUE TO INHALATION OF FOOD AND VOMIT Qualifiers: Aspiration pneumonia type: unspecified Laterality: right Lung location: lower lobe of lung Qualified Code(s): J69.0 - Pneumonitis due to inhalation of food and vomit Assessment/Plan Acute Hypoxic Respiratory Failure UTI Sepsis Left Atelectasis r/o Pneumonia HTN Hyperlipidemia Alzheimer's Dementia - IV antibiotics to cover health care acquired organisms - f/u cultures - IVF - O2 to keep SpO2 >90% - inhaled bronchodilators with mucomyst - chest PT - poor candidate for invasive procedures - aspiration precautions - DVT prophylaxisis - follow up CXR Bryan TOLEDO MD
[2017-04-07] MEDS: POTASSIUM CHLORIDE 20 MEQ in SODIUM CHLORIDE 0.45% 1,000 ML IVPB SCH (15:19)
[2017-04-07 16:30] LABS: ALBUMIN 1.3 g/dl (3.4-5.0); ANION GAP 10 (8-16); BILIRUBIN,TOTAL 0.3 mg/dL (0.2-1.0); BLOOD UREA NITROGEN 21 mg/dL (7-18); CALCIUM 7.8 mg/dL (8.5-10.1); CHLORIDE 107 mmol/L (98-107); CO2 23 mmol/L (21-32); CREATININE 0.5 mg/dL (0.7-1.3); GLUCOSE,RANDOM 122 mg/dL (74-106); POTASSIUM 4.1 mmol/L (3.5-5.1); SGOT/AST 13 U/L (15-37); SGPT/ALT 14 U/L (12-78); SODIUM 140 mmol/L (136-145); TOT PROT 5.2 g/dl (6.4-8.2)
[2017-04-07 16:31] LABS: ALK PHOS 147 U/L (45-117)
[2017-04-08] MEDS: HEPARIN NA (PORCINE) 5,000 UNITS/ML 1ML VIAL SQ SCH ×3 (05:36→21:37)
[2017-04-08] MEDS: POTASSIUM CHLORIDE 20 MEQ in SODIUM CHLORIDE 0.45% 1,000 ML IVPB SCH ×2 (05:36→18:18)
[2017-04-08] MEDS ORDERED: PT OWN MED DRAWER 7, Y5N ONE (09:30)
[2017-04-08] MEDS: METOPROLOL TARTRATE 25 MG TABLET (FP) PEG SCH ×2 (09:49→21:38)
[2017-04-08] MEDS: ERTAPENEM SODIUM 0.5 GM in SODIUM CHLORIDE 100 ML IVPB SCH (09:49)
[2017-04-08] MEDS: RANITIDINE HCL 150 MG/10 ML UNIT-DOSE PEG SCH (09:49)
--- NOTE | 2017-04-08 10:10 | PN ---
Progress Note (short form) - Note Progress Note: ID CONGESTED AND TACHYPNEIC ERTEPENEM Selected Entries 04/08/17 04/08/17 07:32 07:36 Temperature 99.2 F Pulse Rate 106 H Respiratory 22 Rate Blood Pressure 139/85 O2 Sat by Pulse 100 Oximetry (%) Oxygen Flow 4 Rate SCROTAL ABSCESS MIDSCROTUM NOTED PURULENT DRAINAGE ? URINE Microbiology 04/04/17 02:40 Urine - Urine - Catheterized Urine Culture - Final Escherichia Coli Esbl Trimmer Sorter Laboratory Tests 04/07/17 04/07/17 05:10 15:52 WBC 10.0 Hgb 9.1 L Hct 27.8 L Plt Count 343 BUN 21 H Creatinine 0.5 L ASSESSMENT RESPIRATORY DISTRESS ATALECTASIS LT UTI SCROTAL ABSCESS MDRO ESBL PLAN CONTINUE ANTIBIOTIC AND GET UROLOGY TO EVALUATED THE ABSCESS WITH SONOGRAM MIRI LARSON Problem List - Problems (1) Respiratory failure Code(s): J96.90 - RESPIRATORY FAILURE, UNSP, UNSP W HYPOXIA OR HYPERCAPNIA (2) UTI (urinary tract infection) Code(s): N39.0 - URINARY TRACT INFECTION, SITE NOT SPECIFIED Qualifiers: Urinary tract infection type: site unspecified Hematuria presence: without hematuria Qualified Code(s): N39.0 - Urinary tract infection, site not specified (3) Pneumonia Code(s): J18.9 - PNEUMONIA, UNSPECIFIED ORGANISM
--- NOTE | 2017-04-08 12:04 | PN ---
Progress Note, Physician Chief Complaint: tachypneic - Current Medication List Current Medications: Active Medications Acetaminophen (Tylenol Suppository -) 325 mg [place] Q6H PRN PRN Reason: FEVER Acetaminophen (Tylenol Oral Solution -) 325 mg PEG Q6H PRN PRN Reason: FEVER/PAIN Last Admin: 04/07/17 15:03 Dose: 325 mg Heparin Sodium (Porcine) (Heparin -) 5,000 unit SQ TID [facility] Last Admin: 04/08/17 05:36 Dose: 5,000 unit Ertapenem 0.5 gm/ Sodium (Chloride) 100 mls @ 200 mls/hr IVPB DAILY [facility] PRN Reason: Protocol Last Admin: 04/08/17 09:49 Dose: 200 mls/hr Potassium Chloride 20 meq/ (Sodium Chloride) 1,010 mls @ 70 mls/hr IVPB Q14H [facility] Last Admin: 04/08/17 05:36 Dose: 70 mls/hr Metoprolol Tartrate (Lopressor -) 25 mg PEG BID [facility] Last Admin: 04/08/17 09:49 Dose: 25 mg Ranitidine HCl (Zantac Oral Solution -) 150 mg PEG DAILY [facility] Last Admin: 04/08/17 09:49 Dose: 150 mg - Objective Vital Signs: Vital Signs Temperature 99.2 F 04/08/17 07:32 Pulse Rate 106 H 04/08/17 07:32 Respiratory Rate 22 04/08/17 07:36 Blood Pressure 139/85 04/08/17 07:32 O2 Sat by Pulse Oximetry (%) 100 04/08/17 07:36 Constitutional: Yes: No Distress Cardiovascular: Yes: Regular Rate and Rhythm Respiratory: Yes: Diminished Gastrointestinal: Yes: Normal Bowel Sounds, Soft. No: Tenderness Edema: No Labs: CBC, BMP 04/07/17 05:10 04/07/17 15:52 INR, PTT INR 1.29 (0.82-1.09) H 04/04/17 02:44 Problem List - Problems (1) Acute respiratory failure with hypoxia Code(s): J96.01 - ACUTE RESPIRATORY FAILURE WITH HYPOXIA (2) Atelectasis of left lung Code(s): J98.11 - ATELECTASIS (3) Pneumonia Code(s): J18.9 - PNEUMONIA, UNSPECIFIED ORGANISM (4) Sepsis Code(s): A41.9 - SEPSIS, UNSPECIFIED ORGANISM Qualifiers: Sepsis type: sepsis due to unspecified organism Qualified Code(s): A41.9 - Sepsis, unspecified organism (5) Dementia Code(s): F03.90 - UNSPECIFIED DEMENTIA WITHOUT BEHAVIORAL DISTURBANCE Qualifiers: Dementia type: Alzheimer's disease Alzheimer's disease onset: unspecified onset Dementia behavioral disturbance: without behavioral disturbance Qualified Code(s): G30.9 - Alzheimer's disease, unspecified; F02.80 - Dementia in other diseases classified elsewhere without behavioral disturbance; F02.80 - Dementia in other diseases classified elsewhere without behavioral disturbance; F02.80 - Dementia in other diseases classified elsewhere without behavioral disturbance Assessment/Plan PLAN chest PT for atelectasis IV antibiotics Nebs, O2 on GT feeding blood cultures negative Has chronic nita from [place] Urology eval for scrotal abscess Cardiology eval for SVT noted DVT prophylaxis-- Heparin sc DNR/DNI
--- NOTE | 2017-04-08 12:28 | PN ---
Progress Note, Physician Chief Complaint: FEBRILE History of Present Illness: REVIEWED - Current Medication List Current Medications: Active Medications Acetaminophen (Tylenol Suppository -) 325 mg [place] Q6H PRN PRN Reason: FEVER Acetaminophen (Tylenol Oral Solution -) 325 mg PEG Q6H PRN PRN Reason: FEVER/PAIN Last Admin: 04/07/17 15:03 Dose: 325 mg Heparin Sodium (Porcine) (Heparin -) 5,000 unit SQ TID [facility] Last Admin: 04/08/17 05:36 Dose: 5,000 unit Ertapenem 0.5 gm/ Sodium (Chloride) 100 mls @ 200 mls/hr IVPB DAILY [facility] PRN Reason: Protocol Last Admin: 04/08/17 09:49 Dose: 200 mls/hr Potassium Chloride 20 meq/ (Sodium Chloride) 1,010 mls @ 70 mls/hr IVPB Q14H [facility] Last Admin: 04/08/17 05:36 Dose: 70 mls/hr Metoprolol Tartrate (Lopressor -) 25 mg PEG BID [facility] Last Admin: 04/08/17 09:49 Dose: 25 mg Ranitidine HCl (Zantac Oral Solution -) 150 mg PEG DAILY [facility] Last Admin: 04/08/17 09:49 Dose: 150 mg - Objective Vital Signs: Vital Signs Temperature 99.2 F 04/08/17 07:32 Pulse Rate 106 H 04/08/17 07:32 Respiratory Rate 22 04/08/17 07:36 Blood Pressure 139/85 04/08/17 07:32 O2 Sat by Pulse Oximetry (%) 100 04/08/17 07:36 Constitutional: Yes: Pallor, Other (CHRONICALLY ILL APPEARING) HENT: Yes: Normocephalic Neck: Yes: Trachea Midline Cardiovascular: Yes: S1, S2 Respiratory: Yes: Diminished Gastrointestinal: Yes: Soft Edema: LLE: 1+, RLE: 1+ Labs: CBC, BMP 04/07/17 05:10 04/07/17 15:52 INR, PTT INR 1.29 (0.82-1.09) H 04/04/17 02:44 - ....Imaging Chest X-ray: Report Reviewed, Image Reviewed Problem List - Problems (1) Acute respiratory failure with hypoxia Code(s): J96.01 - ACUTE RESPIRATORY FAILURE WITH HYPOXIA (2) Atelectasis of left lung Code(s): J98.11 - ATELECTASIS (3) Pleural effusion on left Code(s): J90 - PLEURAL EFFUSION, NOT ELSEWHERE CLASSIFIED (4) Pneumonia Code(s): J18.9 - PNEUMONIA, UNSPECIFIED ORGANISM (5) Respiratory failure Code(s): J96.90 - RESPIRATORY FAILURE, UNSP, UNSP W HYPOXIA OR HYPERCAPNIA (6) Sepsis Code(s): A41.9 - SEPSIS, UNSPECIFIED ORGANISM Qualifiers: Sepsis type: sepsis due to unspecified organism Qualified Code(s): A41.9 - Sepsis, unspecified organism (7) UTI (urinary tract infection) Code(s): N39.0 - URINARY TRACT INFECTION, SITE NOT SPECIFIED Qualifiers: Urinary tract infection type: site unspecified Hematuria presence: without hematuria Qualified Code(s): N39.0 - Urinary tract infection, site not specified (8) Aspiration pneumonia Code(s): J69.0 - PNEUMONITIS DUE TO INHALATION OF FOOD AND VOMIT Qualifiers: Aspiration pneumonia type: unspecified Laterality: right Lung location: lower lobe of lung Qualified Code(s): J69.0 - Pneumonitis due to inhalation of food and vomit Assessment/Plan Acute Hypoxic Respiratory Failure UTI Sepsis Left Atelectasis r/o Pneumonia HTN Hyperlipidemia Alzheimer's Dementia Scrotal abscess to be evaluated - IV antibiotics to cover health care acquired organisms - f/u cultures - IVF - O2 to keep SpO2 >90% - inhaled bronchodilators with mucomyst - chest PT - poor candidate for invasive procedures - aspiration precautions - DVT prophylaxisis - Urology frank TOLEDO MD
--- NOTE | 2017-04-08 13:24 | CON.GU ---
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 Cardio/Vascular: Yes: HTN, Hyperlipdemia - Alcohol/Substance Use Hx Alcohol Use: No - Smoking History Smoking history: Never smoked Have you smoked in the past 12 months: No Home Medications - Allergies Allergies/Adverse Reactions: Allergies Allergy/AdvReac Type Severity Reaction Status Date / Time No Known Allergies Allergy Verified 02/13/17 04:40 - Home Medications Home Medications: Ambulatory Orders Acetaminophen [Pain Relief] 650 mg GT Q6H PRN 04/04/17 Albuterol 0.083% Nebulizer Kim [Ventolin 0.083%] 1 neb NEB Q4H PRN 04/04/17 Amlodipine Besylate [Norvasc -] 10 mg GT DAILY 04/04/17 Aspirin 81 mg GT DAILY 04/04/17 Atorvastatin Ca [Lipitor] 20 mg GT HS 04/04/17 Cholecalciferol (Vitamin D3) [Vitamin D3] 1,000 unit GT DAILY 04/04/17 Clotrimazole/Betamet Diprop [Lotrisone Cream (Small Tube)] 1 applic TP BID 04/04 Dextran 70/Hypromellose [Artificial Tears Eye Drops] 1 drop OU BID 04/04/17 Docusate Liquid [Colace Liquid -] 10 ml GT BID 04/04/17 Ipratropium 0.02% Nebulizer [Atrovent] 1 neb NEB Q4H PRN 04/04/17 Lorazepam [Ativan] 0.5 mg GT BID 04/04/17 Metoprolol Tartrate [Lopressor -] 25 mg GT BID 04/04/17 Mirtazapine 7.5 mg GT HS 04/04/17 Pantoprazole Sodium [Protonix -] 40 mg GT DAILY 04/04/17 Potassium Chloride 15 ml GT DAILY 04/04/17 Ranitidine HCl 20 mg GT HS 04/04/17 Silver Sulfadiazine 1% Top Cr [Silvadene -] 1 applic TP BID 04/04/17 Tamsulosin HCl 0.4 mg GT HS 02/21/18 Zinc Oxide 20% Topical Oint 454 gm NR ASDIR 04/04/17 Physical Exam- Vital Signs: Vital Signs Temperature 99.2 F 04/08/17 07:32 Pulse Rate 106 H 04/08/17 07:32 Respiratory Rate 22 04/08/17 07:36 Blood Pressure 139/85 04/08/17 07:32 O2 Sat by Pulse Oximetry (%) 100 04/08/17 07:36 Labs: CBC, BMP 04/07/17 05:10 04/07/17 15:52 Imaging - Results Cat Scan: Report Reviewed Problem List - Problems (1) UTI (urinary tract infection) Assessment/Plan: Cont current tx as per ID moya to sd no upper tract dilation Code(s): N39.0 - URINARY TRACT INFECTION, SITE NOT SPECIFIED Qualifiers: Urinary tract infection type: site unspecified Hematuria presence: without hematuria Qualified Code(s): N39.0 - Urinary tract infection, site not specified (2) Urethral fistula Assessment/Plan: Cont moya to sd Small amouint of fluid drained cont to moniter scrotal exam Consider spt placement as terminal manager mangement Urethral repair and excision of fistula likely not surgical candidate Code(s): N36.0 - URETHRAL FISTULA
--- NOTE | 2017-04-08 13:25 | PN ---
Progress Note, Physician History of Present Illness: Low grade fevers, urethral fistula diagnosed, episodes of PSVT. - Current Medication List Current Medications: Active Medications Acetaminophen (Tylenol Suppository -) 325 mg [place] Q6H PRN PRN Reason: FEVER Acetaminophen (Tylenol Oral Solution -) 325 mg PEG Q6H PRN PRN Reason: FEVER/PAIN Last Admin: 04/07/17 15:03 Dose: 325 mg Heparin Sodium (Porcine) (Heparin -) 5,000 unit SQ TID [facility] Last Admin: 04/08/17 05:36 Dose: 5,000 unit Ertapenem 0.5 gm/ Sodium (Chloride) 100 mls @ 200 mls/hr IVPB DAILY [facility] PRN Reason: Protocol Last Admin: 04/08/17 09:49 Dose: 200 mls/hr Potassium Chloride 20 meq/ (Sodium Chloride) 1,010 mls @ 70 mls/hr IVPB Q14H [facility] Last Admin: 04/08/17 05:36 Dose: 70 mls/hr Metoprolol Tartrate (Lopressor -) 25 mg PEG BID [facility] Last Admin: 04/08/17 09:49 Dose: 25 mg Ranitidine HCl (Zantac Oral Solution -) 150 mg PEG DAILY [facility] Last Admin: 04/08/17 09:49 Dose: 150 mg - Objective Vital Signs: Vital Signs Temperature 99.2 F 04/08/17 07:32 Pulse Rate 106 H 04/08/17 07:32 Respiratory Rate 22 04/08/17 07:36 Blood Pressure 139/85 04/08/17 07:32 O2 Sat by Pulse Oximetry (%) 100 04/08/17 07:36 Constitutional: Yes: No Distress, Calm, Thin Neck: Yes: Supple Cardiovascular: Yes: Regular Rate and Rhythm Respiratory: Yes: Regular, Diminished, On Nasal O2 Gastrointestinal: Yes: Normal Bowel Sounds, Soft Edema: No Labs: CBC, BMP 04/07/17 05:10 04/07/17 15:52 INR, PTT INR 1.29 (0.82-1.09) H 04/04/17 02:44 - ....Imaging EKG: Report Reviewed (Tele: PSVT=>SR) Problem List - Problems (1) Acute respiratory failure with hypoxia Code(s): J96.01 - ACUTE RESPIRATORY FAILURE WITH HYPOXIA (2) Atelectasis of left lung Code(s): J98.11 - ATELECTASIS (3) Hypokalemia Code(s): E87.6 - HYPOKALEMIA (4) Sepsis Code(s): A41.9 - SEPSIS, UNSPECIFIED ORGANISM Qualifiers: Sepsis type: sepsis due to unspecified organism Qualified Code(s): A41.9 - Sepsis, unspecified organism (5) UTI (urinary tract infection) Code(s): N39.0 - URINARY TRACT INFECTION, SITE NOT SPECIFIED Qualifiers: Urinary tract infection type: site unspecified Hematuria presence: without hematuria Qualified Code(s): N39.0 - Urinary tract infection, site not specified (6) Aspiration pneumonia Code(s): J69.0 - PNEUMONITIS DUE TO INHALATION OF FOOD AND VOMIT Qualifiers: Aspiration pneumonia type: unspecified Laterality: right Lung location: lower lobe of lung Qualified Code(s): J69.0 - Pneumonitis due to inhalation of food and vomit (7) Paroxysmal supraventricular tachycardia seen on desk monitor Code(s): I47.1 - SUPRAVENTRICULAR TACHYCARDIA (8) Stress ulcer of stomach Code(s): K25.9 - GASTRIC ULCER, UNSP ACUTE OR CHRONIC, W/O HEMOR OR PERF Assessment/Plan 1. Acute Hypoxic Respiratory Failure due to left atelectasis, r/o PNA 2. UTI with underlying urethral fistula 3. Sepsis 4. Paroxysmal supraventricular tachycardia -> NSR 5. H/o hematemesis referable to stress gastritis with possible aspiration pneumonia 6. HTN 7. Dementia post PEG P: 1. Continue Lopressor 25 bid 2. Check electrolytes and replete K as you are 3. Complete empiric ertapanem course per C&S, moya, consider SPT long-term 4. O2 to keep SpO2 >90%, inhaled bronchodilators with mucomyst, chest PT 5. Aspiration precautions 6. DVT and GI prophylaxis, enteral feeds and judicious hydration
[2017-04-09] MEDS: HEPARIN NA (PORCINE) 5,000 UNITS/ML 1ML VIAL SQ SCH ×3 (05:51→22:44)
[2017-04-09 07:23] LABS: ALBUMIN 1.4 g/dl (3.4-5.0); ANION GAP 13 (8-16); BASO % 0.6 % (0-2.0); BLOOD UREA NITROGEN 15 mg/dL (7-18); CHLORIDE 101 mmol/L (98-107); CO2 22 mmol/L (21-32); EOS % 2.1 % (0-4.5); GLUCOSE,RANDOM 105 mg/dL (74-106); HEMATOCRIT 30.6 % (35.4-49); HEMOGLOBIN 9.8 GM/dL (11.7-16.9); LYMPH % 9.4 % (8-40); MCH 27.2 pg (25.7-33.7); MEAN CELL VOLUME 85.2 fl (80-96); MEAN PLT VOLUME 8.8 fl (7.5-11.1); MONO % 5.4 % (3.8-10.2); NEUT % 82.5 % (42.8-82.8); PLATELET COUNT 402 K/MM3 (134-434); POTASSIUM 4.1 mmol/L (3.5-5.1); RBC 3.59 M/mm3 (4.00-5.60); RDW 16.7 % (11.9-15.9); SODIUM 136 mmol/L (136-145); WHITE BLOOD COUNT 13.9 K/mm3 (4.0-10.0)
[2017-04-09 07:28] LABS: ALK PHOS 138 U/L (45-117); BILIRUBIN,TOTAL 0.3 mg/dL (0.2-1.0); CREATININE 0.4 mg/dL (0.7-1.3); SGOT/AST 15 U/L (15-37); SGPT/ALT 14 U/L (12-78)
--- NOTE | 2017-04-09 08:25 | PN ---
Progress Note, Physician Chief Complaint: ID Overall clinical status about the same Seen by urology Ertepenem day 3 therapy-ESBL in urine culture Congested tahcypneic - Current Medication List Current Medications: Active Medications Acetaminophen (Tylenol Suppository -) 325 mg [place] Q6H PRN PRN Reason: FEVER Acetaminophen (Tylenol Oral Solution -) 325 mg PEG Q6H PRN PRN Reason: FEVER/PAIN Last Admin: 04/07/17 15:03 Dose: 325 mg Heparin Sodium (Porcine) (Heparin -) 5,000 unit SQ TID [facility] Last Admin: 04/09/17 05:51 Dose: 5,000 unit Ertapenem 0.5 gm/ Sodium (Chloride) 100 mls @ 200 mls/hr IVPB DAILY [facility] PRN Reason: Protocol Last Admin: 04/08/17 09:49 Dose: 200 mls/hr Metoprolol Tartrate (Lopressor -) 25 mg PEG BID [facility] Last Admin: 04/08/17 21:38 Dose: 25 mg Ranitidine HCl (Zantac Oral Solution -) 150 mg PEG DAILY [facility] Last Admin: 04/08/17 09:49 Dose: 150 mg - Objective Vital Signs: Vital Signs Temperature 98.0 F 04/09/17 02:00 Pulse Rate 92 H 04/09/17 02:00 Respiratory Rate 20 04/09/17 02:00 Blood Pressure 129/75 04/09/17 02:00 O2 Sat by Pulse Oximetry (%) 95 04/08/17 20:50 Constitutional: Yes: No Distress HENT: Yes: WNL, Atraumatic Neck: Yes: WNL, Supple Cardiovascular: Yes: S1, S2 Respiratory: Yes: Rhonchi Gastrointestinal: Yes: Soft Labs: CBC, BMP 04/09/17 06:25 04/09/17 06:25 INR, PTT INR 1.29 (0.82-1.09) H 04/04/17 02:44 Problem List - Problems (1) Respiratory failure Code(s): J96.90 - RESPIRATORY FAILURE, UNSP, UNSP W HYPOXIA OR HYPERCAPNIA (2) UTI (urinary tract infection) Code(s): N39.0 - URINARY TRACT INFECTION, SITE NOT SPECIFIED Qualifiers: Urinary tract infection type: site unspecified Hematuria presence: without hematuria Qualified Code(s): N39.0 - Urinary tract infection, site not specified (3) Pneumonia Code(s): J18.9 - PNEUMONIA, UNSPECIFIED ORGANISM Assessment/Plan Microbiology 04/04/17 02:44 Blood - Peripheral Venous Blood Culture - Final NO GROWTH AFTER 5 DAYS INCUBATION Laboratory Tests 04/04/17 04/09/17 04/09/17 02:44 06:25 06:25 WBC 13.9 H D Hgb 9.8 L Hct 30.6 L Plt Count 402 BUN 15 D Creatinine 0.4 L Ur Leukocyte Esterase 3+ H Urine WBC (Auto) 631 Ur Epithelial Cells Rare Urine Bacteria Many Assessment Respiratory failure MDRO ESBL urinary tract Atalectasis/ Pneumonia Dementia Scrotal wound/Fistula Plan Continue Ertepenem complete a week of therapy another 4 days
[2017-04-09] MEDS ORDERED: PT OWN MED DRAWER 7, Y5N ONE (09:26)
[2017-04-09] MEDS: RANITIDINE HCL 150 MG/10 ML UNIT-DOSE PEG SCH (09:36)
[2017-04-09] MEDS: METOPROLOL TARTRATE 25 MG TABLET (FP) PEG SCH ×2 (09:37→22:43)
[2017-04-09] MEDS: ERTAPENEM SODIUM 0.5 GM in SODIUM CHLORIDE 100 ML IVPB SCH (09:59)
--- NOTE | 2017-04-09 10:26 | PN ---
Progress Note, Physician Chief Complaint: Events noted Nonverbal History of Present Illness: Patient was seen and examined. Arousable. Chart was reviewed - Current Medication List Current Medications: Active Medications Acetaminophen (Tylenol Suppository -) 325 mg [place] Q6H PRN PRN Reason: FEVER Acetaminophen (Tylenol Oral Solution -) 325 mg PEG Q6H PRN PRN Reason: FEVER/PAIN Last Admin: 04/07/17 15:03 Dose: 325 mg Heparin Sodium (Porcine) (Heparin -) 5,000 unit SQ TID [facility] Last Admin: 04/09/17 05:51 Dose: 5,000 unit Ertapenem 0.5 gm/ Sodium (Chloride) 100 mls @ 200 mls/hr IVPB DAILY [facility] PRN Reason: Protocol Last Admin: 04/09/17 09:59 Dose: 200 mls/hr Metoprolol Tartrate (Lopressor -) 25 mg PEG BID [facility] Last Admin: 04/09/17 09:37 Dose: 25 mg Ranitidine HCl (Zantac Oral Solution -) 150 mg PEG DAILY [facility] Last Admin: 04/09/17 09:36 Dose: 150 mg - Objective Vital Signs: Vital Signs Temperature 98.0 F 04/09/17 02:00 Pulse Rate 92 H 04/09/17 02:00 Respiratory Rate 20 04/09/17 02:00 Blood Pressure 129/75 04/09/17 02:00 O2 Sat by Pulse Oximetry (%) 95 04/08/17 20:50 HENT: Yes: Atraumatic Neck: Yes: Supple Cardiovascular: Yes: Regular Rate and Rhythm, S1, S2 Respiratory: Yes: Diminished Gastrointestinal: Yes: Normal Bowel Sounds, Soft. No: Tenderness Edema: No Labs: CBC, BMP 04/09/17 06:25 04/09/17 06:25 Problem List - Problems (1) Acute respiratory failure with hypoxia Code(s): J96.01 - ACUTE RESPIRATORY FAILURE WITH HYPOXIA (2) Anemia Code(s): D64.9 - ANEMIA, UNSPECIFIED (3) Atelectasis of left lung Code(s): J98.11 - ATELECTASIS (4) Hypokalemia Code(s): E87.6 - HYPOKALEMIA (5) Sepsis Code(s): A41.9 - SEPSIS, UNSPECIFIED ORGANISM Qualifiers: Sepsis type: sepsis due to unspecified organism Qualified Code(s): A41.9 - Sepsis, unspecified organism (6) UTI (urinary tract infection) Code(s): N39.0 - URINARY TRACT INFECTION, SITE NOT SPECIFIED Qualifiers: Urinary tract infection type: site unspecified Hematuria presence: without hematuria Qualified Code(s): N39.0 - Urinary tract infection, site not specified (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 (8) Aspiration pneumonia Code(s): J69.0 - PNEUMONITIS DUE TO INHALATION OF FOOD AND VOMIT Qualifiers: Aspiration pneumonia type: unspecified Laterality: right Lung location: lower lobe of lung Qualified Code(s): J69.0 - Pneumonitis due to inhalation of food and vomit (9) Dementia Code(s): F03.90 - UNSPECIFIED DEMENTIA WITHOUT BEHAVIORAL DISTURBANCE Qualifiers: Dementia type: Alzheimer's disease Alzheimer's disease onset: unspecified onset Dementia behavioral disturbance: without behavioral disturbance Qualified Code(s): G30.9 - Alzheimer's disease, unspecified; F02.80 - Dementia in other diseases classified elsewhere without behavioral disturbance; F02.80 - Dementia in other diseases classified elsewhere without behavioral disturbance; F02.80 - Dementia in other diseases classified elsewhere without behavioral disturbance (10) Paroxysmal supraventricular tachycardia seen on surveillance system monitor Code(s): I47.1 - SUPRAVENTRICULAR TACHYCARDIA Assessment/Plan 1. Acute Hypoxic Respiratory Failure due to left atelectasis 2. UTI with underlying urethral fistula 3. Sepsis 4. Paroxysmal supraventricular tachycardia currently in sinus rhythm 5. History of hematemesis referable to stress gastritis with possible aspiration pneumonia 6. HTN 7. Dementia post PEG PLAN: 1. Continue Lopressor 2. Check electrolytes 3. Complete empiric antibiotic course 4. O2 to keep SpO2 >90%, inhaled bronchodilators and chest PT 5. Aspiration precautions 6. DVT and GI prophylaxis Raj Mann MD
--- NOTE | 2017-04-09 11:55 | PN ---
Progress Note, Physician History of Present Illness: PULMONARY NON-VERBAL,MILDLY TACHYPNEIC,STILL CONGESTED - Current Medication List Current Medications: Active Medications Acetaminophen (Tylenol Suppository -) 325 mg [place] Q6H PRN PRN Reason: FEVER Acetaminophen (Tylenol Oral Solution -) 325 mg PEG Q6H PRN PRN Reason: FEVER/PAIN Last Admin: 04/07/17 15:03 Dose: 325 mg Heparin Sodium (Porcine) (Heparin -) 5,000 unit SQ TID [facility] Last Admin: 04/09/17 05:51 Dose: 5,000 unit Ertapenem 0.5 gm/ Sodium (Chloride) 100 mls @ 200 mls/hr IVPB DAILY [facility] PRN Reason: Protocol Last Admin: 04/09/17 09:59 Dose: 200 mls/hr Metoprolol Tartrate (Lopressor -) 25 mg PEG BID [facility] Last Admin: 04/09/17 09:37 Dose: 25 mg Ranitidine HCl (Zantac Oral Solution -) 150 mg PEG DAILY [facility] Last Admin: 04/09/17 09:36 Dose: 150 mg - Objective Vital Signs: Vital Signs Temperature 99.1 F 04/09/17 10:00 Pulse Rate 98 H 04/09/17 10:00 Respiratory Rate 20 04/09/17 10:00 Blood Pressure 155/59 04/09/17 10:00 O2 Sat by Pulse Oximetry (%) 96 04/09/17 09:00 Constitutional: Yes: Mild Distress Eyes: Yes: WNL HENT: Yes: WNL Neck: Yes: Supple Cardiovascular: Yes: Regular Rate and Rhythm, S1, S2 Respiratory: Yes: Rhonchi (MILD TACHYPNEA), Tachypnea Gastrointestinal: Yes: Normal Bowel Sounds, Soft Extremities: Yes: Other (CONTRACTED) Edema: No Labs: CBC, BMP 04/09/17 06:25 04/09/17 06:25 INR, PTT INR 1.29 (0.82-1.09) H 04/04/17 02:44 Assessment/Plan Problem List - Problems (1) Acute respiratory failure with hypoxia Code(s): J96.01 - ACUTE RESPIRATORY FAILURE WITH HYPOXIA (2) Sepsis Code(s): A41.9 - SEPSIS, UNSPECIFIED ORGANISM Qualifiers: Sepsis type: sepsis due to unspecified organism Qualified Code(s): A41.9 - Sepsis, unspecified organism (3) UTI (urinary tract infection) Code(s): N39.0 - URINARY TRACT INFECTION, SITE NOT SPECIFIED Qualifiers: Urinary tract infection type: site unspecified Hematuria presence: without hematuria Qualified Code(s): N39.0 - Urinary tract infection, site not specified (4) Atelectasis of left lung Code(s): J98.11 - ATELECTASIS (5) Pneumonia Code(s): J18.9 - PNEUMONIA, UNSPECIFIED ORGANISM (6) Dementia Code(s): F03.90 - UNSPECIFIED DEMENTIA WITHOUT BEHAVIORAL DISTURBANCE Qualifiers: Dementia type: Alzheimer's disease Alzheimer's disease onset: unspecified onset Dementia behavioral disturbance: without behavioral disturbance Qualified Code(s): G30.9 - Alzheimer's disease, unspecified; F02.80 - Dementia in other diseases classified elsewhere without behavioral disturbance; F02.80 - Dementia in other diseases classified elsewhere without behavioral disturbance; F02.80 - Dementia in other diseases classified elsewhere without behavioral disturbance Assessment/Plan Acute Hypoxic Respiratory Failure UTI Sepsis Left Atelectasis improving r/o Pneumonia HTN Hyperlipidemia Alzheimer's Dementia - IV antibiotics - IVF - O2 to keep SpO2 >90% - f/u chest x-rays - inhaled bronchodilators with mucomyst - chest PT - poor candidate for invasive procedures - aspiration precautions - DVT prophylaxis DR STEVENSON
--- NOTE | 2017-04-09 12:22 | PN ---
Progress Note, Physician History of Present Illness: pt seen/ examined. comfortable. all f/u noted afebrile all consults noted / appreciated - Current Medication List Current Medications: Active Medications Acetaminophen (Tylenol Suppository -) 325 mg [place] Q6H PRN PRN Reason: FEVER Acetaminophen (Tylenol Oral Solution -) 325 mg PEG Q6H PRN PRN Reason: FEVER/PAIN Last Admin: 04/07/17 15:03 Dose: 325 mg Heparin Sodium (Porcine) (Heparin -) 5,000 unit SQ TID [facility] Last Admin: 04/09/17 05:51 Dose: 5,000 unit Ertapenem 0.5 gm/ Sodium (Chloride) 100 mls @ 200 mls/hr IVPB DAILY [facility] PRN Reason: Protocol Last Admin: 04/09/17 09:59 Dose: 200 mls/hr Metoprolol Tartrate (Lopressor -) 25 mg PEG BID [facility] Last Admin: 04/09/17 09:37 Dose: 25 mg Ranitidine HCl (Zantac Oral Solution -) 150 mg PEG DAILY [facility] Last Admin: 04/09/17 09:36 Dose: 150 mg - Objective Vital Signs: Vital Signs Temperature 99.1 F 04/09/17 10:00 Pulse Rate 98 H 04/09/17 10:00 Respiratory Rate 20 04/09/17 10:00 Blood Pressure 155/59 04/09/17 10:00 O2 Sat by Pulse Oximetry (%) 96 04/09/17 09:00 Constitutional: Yes: No Distress Eyes: Yes: Conjunctiva Clear Neck: Yes: Supple Cardiovascular: Yes: Regular Rate and Rhythm Respiratory: Yes: Diminished Gastrointestinal: Yes: Soft Edema: No Neurological: No: Alert Labs: CBC, BMP 04/09/17 06:25 04/09/17 06:25 INR, PTT INR 1.29 (0.82-1.09) H 04/04/17 02:44 Problem List - Problems (1) Anemia Code(s): D64.9 - ANEMIA, UNSPECIFIED (2) Hypokalemia Code(s): E87.6 - HYPOKALEMIA (3) Acute respiratory failure with hypoxia Code(s): J96.01 - ACUTE RESPIRATORY FAILURE WITH HYPOXIA (4) Pneumonia Code(s): J18.9 - PNEUMONIA, UNSPECIFIED ORGANISM (5) Dementia Code(s): F03.90 - UNSPECIFIED DEMENTIA WITHOUT BEHAVIORAL DISTURBANCE Qualifiers: Dementia type: Alzheimer's disease Alzheimer's disease onset: unspecified onset Dementia behavioral disturbance: without behavioral disturbance Qualified Code(s): G30.9 - Alzheimer's disease, unspecified; F02.80 - Dementia in other diseases classified elsewhere without behavioral disturbance; F02.80 - Dementia in other diseases classified elsewhere without behavioral disturbance; F02.80 - Dementia in other diseases classified elsewhere without behavioral disturbance Assessment/Plan clinically stable. problems as listed. not surgical candidate - urethral stricture. continue present care. will follow.
[2017-04-09] MEDS: ACETAMINOPHEN 650 MG/20.3 ML ORAL SOLUTION (CUPS) PEG PRN (12:37)
[2017-04-10] MEDS: HEPARIN NA (PORCINE) 5,000 UNITS/ML 1ML VIAL SQ SCH ×3 (05:19→22:07)
[2017-04-10 07:02] LABS: BASO % 0.3 % (0-2.0); EOS % 1.3 % (0-4.5); HEMATOCRIT 31.2 % (35.4-49); HEMOGLOBIN 9.9 GM/dL (11.7-16.9); LYMPH % 9.7 % (8-40); MCH 26.8 pg (25.7-33.7); MCHC 31.7 g/dl (32.0-35.9); MEAN CELL VOLUME 84.7 fl (80-96); MEAN PLT VOLUME 9.1 fl (7.5-11.1); MONO % 5.1 % (3.8-10.2); NEUT % 83.6 % (42.8-82.8); PLATELET COUNT 409 K/MM3 (134-434); RBC 3.69 M/mm3 (4.00-5.60); WHITE BLOOD COUNT 14.4 K/mm3 (4.0-10.0)
[2017-04-10 07:41] LABS: ALBUMIN 1.4 g/dl (3.4-5.0); ALK PHOS 132 U/L (45-117); ANION GAP 12 (8-16); BILIRUBIN,TOTAL 0.2 mg/dL (0.2-1.0); BLOOD UREA NITROGEN 18 mg/dL (7-18); CALCIUM 7.3 mg/dL (8.5-10.1); CHLORIDE 103 mmol/L (98-107); CO2 24 mmol/L (21-32); CREATININE 0.5 mg/dL (0.7-1.3); GLUCOSE,RANDOM 99 mg/dL (74-106); SGOT/AST 18 U/L (15-37); SGPT/ALT 11 U/L (12-78); SODIUM 139 mmol/L (136-145); TOT PROT 5.3 g/dl (6.4-8.2)
--- NOTE | 2017-04-10 08:12 | PN ---
Progress Note (short form) - Note Progress Note: Chief Complaint: Events noted, notes reviewed, patient remains nonverbal, no acute distress History of Present Illness: Seen and examined on telemetry. Events noted, notes reviewed, patient remains nonverbal, no acute distress - Current Medication List Current Medications Acetaminophen (Tylenol Suppository -) 325 mg [place] Q6H PRN PRN Reason: FEVER Acetaminophen (Tylenol Oral Solution -) 325 mg PEG Q6H PRN PRN Reason: FEVER/PAIN Last Admin: 04/09/17 12:37 Dose: 325 mg Albuterol Sulfate (Ventolin 0.083% Nebulizer Soln -) 1 amp NEB RTID [facility]PLAC[facility] BY [facility] Heparin Sodium (Porcine) (Heparin -) 5,000 unit SQ TID [facility] Last Admin: 04/10/17 05:19 Dose: 5,000 unit Ertapenem 0.5 gm/ Sodium (Chloride) 100 mls @ 200 mls/hr IVPB DAILY [facility] PRN Reason: Protocol Last Admin: 04/10/17 10:03 Dose: 200 mls/hr Methylprednisolone Sodium Succinate (Solu-Medrol -) 40 mg IVPUSH BID [facility] Stop: 04/11/17 22:01 Metoprolol Tartrate (Lopressor -) 25 mg PEG BID [facility] Last Admin: 04/10/17 10:03 Dose: 25 mg Ranitidine HCl (Zantac Oral Solution -) 150 mg PEG DAILY [facility] Last Admin: 04/10/17 10:03 Dose: 150 mg Review of Systems: Unable to Obtain - Objective Vital Signs: Last Vital Signs Temp Pulse Resp BP Pulse Ox 98.9 F 94 H 18 145/72 98 04/10/17 14:34 04/10/17 14:34 04/10/17 14:34 04/10/17 14:34 04/10/17 08:00 Intake & Output 04/07/17 04/08/17 04/09/17 04/10/17 23:59 23:59 23:59 23:59 Intake Total 1090 2790 1174 550 Output Total 365 724 670 2055 Balance 725 1970 474 -500 HEENT: Atraumatic Neck: Supple Negative JVD No Bruit Cardiovascular: S1 S2 Regular Rate and Rhythm Respiratory: Diminished Gastrointestinal: Soft, Benign, Normal Bowel Sounds Ext: No Edema Labs: CBC, BMP 04/10/17 06:25 04/10/17 06:25 Assessment/Plan ASSESSMENT: 1. Acute Hypoxic Respiratory Failure due to left lung atelectasis, possible aspiration pneumonia 2. 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 Sepsis Syndrome related to the above-noted presentation 4. Paroxysmal supraventricular tachycardia currently in sinus rhythm 5. Hypertensive cardiovascular disease 6. History of hematemesis referable to stress gastritis 7. Dementia post PEG insertion 8. Anemia PLAN: 1. Continue Lopressor 2. Antibiotics as per the primary team 3. Management of the above-noted left lung atelectasis as per the pulmonary team , continuation of Steroids and Bronchodilators Montana Owens MD
[2017-04-10] MEDS: RANITIDINE HCL 150 MG/10 ML UNIT-DOSE PEG SCH (10:03)
[2017-04-10] MEDS: METOPROLOL TARTRATE 25 MG TABLET (FP) PEG SCH ×2 (10:03→22:06)
[2017-04-10] MEDS: ERTAPENEM SODIUM 0.5 GM in SODIUM CHLORIDE 100 ML IVPB SCH (10:03)
--- NOTE | 2017-04-10 11:15 | PN ---
Progress Note, Physician Chief Complaint: no distress comfortable - Current Medication List Current Medications: Active Medications Acetaminophen (Tylenol Suppository -) 325 mg [place] Q6H PRN PRN Reason: FEVER Acetaminophen (Tylenol Oral Solution -) 325 mg PEG Q6H PRN PRN Reason: FEVER/PAIN Last Admin: 04/09/17 12:37 Dose: 325 mg Heparin Sodium (Porcine) (Heparin -) 5,000 unit SQ TID [facility] Last Admin: 04/10/17 05:19 Dose: 5,000 unit Ertapenem 0.5 gm/ Sodium (Chloride) 100 mls @ 200 mls/hr IVPB DAILY [facility] PRN Reason: Protocol Last Admin: 04/10/17 10:03 Dose: 200 mls/hr Metoprolol Tartrate (Lopressor -) 25 mg PEG BID [facility] Last Admin: 04/10/17 10:03 Dose: 25 mg Ranitidine HCl (Zantac Oral Solution -) 150 mg PEG DAILY [facility] Last Admin: 04/10/17 10:03 Dose: 150 mg - Objective Vital Signs: Vital Signs Temperature 98 F 04/10/17 08:01 Pulse Rate 106 H 04/10/17 08:01 Respiratory Rate 18 04/10/17 08:01 Blood Pressure 140/74 04/10/17 08:01 O2 Sat by Pulse Oximetry (%) 96 04/09/17 20:01 Constitutional: Yes: No Distress Cardiovascular: Yes: Regular Rate and Rhythm Respiratory: Yes: Diminished Gastrointestinal: Yes: Normal Bowel Sounds, Soft, Other (GT). No: Tenderness Extremities: Yes: Other (contracted , moya+) Edema: No Labs: CBC, BMP 04/10/17 06:25 04/10/17 06:25 INR, PTT INR 1.29 (0.82-1.09) H 04/04/17 02:44 Problem List - Problems (1) Acute respiratory failure with hypoxia Code(s): J96.01 - ACUTE RESPIRATORY FAILURE WITH HYPOXIA (2) Atelectasis of left lung Code(s): J98.11 - ATELECTASIS (3) Pneumonia Code(s): J18.9 - PNEUMONIA, UNSPECIFIED ORGANISM (4) Sepsis Code(s): A41.9 - SEPSIS, UNSPECIFIED ORGANISM Qualifiers: Sepsis type: sepsis due to unspecified organism Qualified Code(s): A41.9 - Sepsis, unspecified organism (5) Dementia Code(s): F03.90 - UNSPECIFIED DEMENTIA WITHOUT BEHAVIORAL DISTURBANCE Qualifiers: Dementia type: Alzheimer's disease Alzheimer's disease onset: unspecified onset Dementia behavioral disturbance: without behavioral disturbance Qualified Code(s): G30.9 - Alzheimer's disease, unspecified; F02.80 - Dementia in other diseases classified elsewhere without behavioral disturbance; F02.80 - Dementia in other diseases classified elsewhere without behavioral disturbance; F02.80 - Dementia in other diseases classified elsewhere without behavioral disturbance (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 Assessment/Plan PLAN chest PT for atelectasis IV antibiotics Nebs, O2 on GT feeding blood cultures negative Urology eval noted for urethral stricture-- may need suprapubic cath DVT prophylaxis-- Heparin sc DNR/DNI
--- NOTE | 2017-04-10 12:37 | PN ---
Progress Note (short form) - Note Progress Note: Mildy tachypneic at rest on NC O2. Non-verbal. CXR: Increasing opacification/atelectasis of the left lung Intake & Output 04/07/17 04/08/17 04/09/17 04/10/17 23:59 23:59 23:59 23:59 Intake Total 1090 2790 1174 550 Output Total 365 820 700 650 Balance 725 1970 474 -100 Last Vital Signs Temp Pulse Resp BP Pulse Ox 99.1 F 101 H 18 140/74 98 04/10/17 10:30 04/10/17 10:30 04/10/17 10:30 04/10/17 08:01 04/10/17 08:00 Active Medications Acetaminophen (Tylenol Suppository -) 325 mg [place] Q6H PRN PRN Reason: FEVER Acetaminophen (Tylenol Oral Solution -) 325 mg PEG Q6H PRN PRN Reason: FEVER/PAIN Last Admin: 04/09/17 12:37 Dose: 325 mg Heparin Sodium (Porcine) (Heparin -) 5,000 unit SQ TID [facility] Last Admin: 04/10/17 05:19 Dose: 5,000 unit Ertapenem 0.5 gm/ Sodium (Chloride) 100 mls @ 200 mls/hr IVPB DAILY [facility] PRN Reason: Protocol Last Admin: 04/10/17 10:03 Dose: 200 mls/hr Metoprolol Tartrate (Lopressor -) 25 mg PEG BID [facility] Last Admin: 04/10/17 10:03 Dose: 25 mg Ranitidine HCl (Zantac Oral Solution -) 150 mg PEG DAILY [facility] Last Admin: 04/10/17 10:03 Dose: 150 mg Constitutional: Yes: Mild tachypneic at rest Eyes: Yes: WNL HENT: Yes: WNL Neck: Yes: Supple Cardiovascular: Yes: Regular Rate and Rhythm, S1, S2 Respiratory: Yes: Diminshed on the left, bilateral Rhonchi: R>L, Mild Tachypnea Gastrointestinal: Yes: Normal Bowel Sounds, Soft Extremities: Yes: contracted Edema: No Labs: Laboratory Results - last 24 hr 04/10/17 04/10/17 06:25 06:25 WBC 14.4 H RBC 3.69 L Hgb 9.9 L Hct 31.2 L MCV 84.7 MCH 26.8 MCHC 31.7 L RDW 17.0 H Plt Count 409 MPV 9.1 Neutrophils % 83.6 H Lymphocytes % 9.7 Monocytes % 5.1 Eosinophils % 1.3 Basophils % 0.3 Sodium 139 Potassium 4.0 Chloride 103 Carbon Dioxide 24 Anion Gap 12 BUN 18 Creatinine 0.5 L D Creat Clearance w eGFR > 60 Random Glucose 99 Calcium 7.3 L Total Bilirubin 0.2 D AST 18 ALT 11 L D Alkaline Phosphatase 132 H Total Protein 5.3 L Albumin 1.4 L Assessment/Plan Problem List - Problems (1) Acute respiratory failure with hypoxia Code(s): J96.01 - ACUTE RESPIRATORY FAILURE WITH HYPOXIA (2) Sepsis Code(s): A41.9 - SEPSIS, UNSPECIFIED ORGANISM Qualifiers: Sepsis type: sepsis due to unspecified organism Qualified Code(s): A41.9 - Sepsis, unspecified organism (3) UTI (urinary tract infection) Code(s): N39.0 - URINARY TRACT INFECTION, SITE NOT SPECIFIED Qualifiers: Urinary tract infection type: site unspecified Hematuria presence: without hematuria Qualified Code(s): N39.0 - Urinary tract infection, site not specified (4) Atelectasis of left lung Code(s): J98.11 - ATELECTASIS (5) Pneumonia Code(s): J18.9 - PNEUMONIA, UNSPECIFIED ORGANISM (6) Dementia Code(s): F03.90 - UNSPECIFIED DEMENTIA WITHOUT BEHAVIORAL DISTURBANCE Qualifiers: Dementia type: Alzheimer's disease Alzheimer's disease onset: unspecified onset Dementia behavioral disturbance: without behavioral disturbance Qualified Code(s): G30.9 - Alzheimer's disease, unspecified; F02.80 - Dementia in other diseases classified elsewhere without behavioral disturbance; F02.80 - Dementia in other diseases classified elsewhere without behavioral disturbance; F02.80 - Dementia in other diseases classified elsewhere without behavioral disturbance Assessment/Plan Left atelectasis Acute Hypoxic Respiratory Failure UTI Sepsis Left Atelectasis improving r/o Pneumonia HTN Hyperlipidemia Alzheimer's Dementia - Chest PT - BD TX - 48 hours of Medrol - IV antibiotics - O2 to keep SpO2 >90% - f/u chest x-ray in AM - poor candidate for invasive procedures - aspiration precautions - DVT prophylaxis Dr Mathew
[2017-04-10] MEDS: ALBUTEROL SO4 0.083% IH SOL 2.5 MG/3 ML VIAL.NEB. NEB SCH ×2 (15:00→20:58)
[2017-04-10] MEDS: methylPREDNISolone NA SUCC 40 MG/1 ML VIAL IVPUSH SCH ×2 (15:30→22:06)
--- NOTE | 2017-04-10 20:21 | PN ---
Progress Note (short form) - Note Progress Note: moya is draining clear urine scrotum still with some drainage, not an operative candidate, consult interventional radiology for placement of percutaneous suprapubic cath
[2017-04-11] MEDS: HEPARIN NA (PORCINE) 5,000 UNITS/ML 1ML VIAL SQ SCH (06:08)
[2017-04-11] MEDS: ALBUTEROL SO4 0.083% IH SOL 2.5 MG/3 ML VIAL.NEB. NEB SCH ×3 (07:45→20:32)
[2017-04-11] MEDS: METOPROLOL TARTRATE 25 MG TABLET (FP) PEG SCH ×2 (09:23→22:06)
[2017-04-11] MEDS: RANITIDINE HCL 150 MG/10 ML UNIT-DOSE PEG SCH (09:23)
[2017-04-11] MEDS: methylPREDNISolone NA SUCC 40 MG/1 ML VIAL IVPUSH SCH ×2 (09:23→22:06)
--- NOTE | 2017-04-11 11:58 | PN ---
Progress Note, Physician Chief Complaint: no distress comfortable - Current Medication List Current Medications: Active Medications Acetaminophen (Tylenol Suppository -) 325 mg [place] Q6H PRN PRN Reason: FEVER Acetaminophen (Tylenol Oral Solution -) 325 mg PEG Q6H PRN PRN Reason: FEVER/PAIN Last Admin: 04/09/17 12:37 Dose: 325 mg Albuterol Sulfate (Ventolin 0.083% Nebulizer Soln -) 1 amp NEB RTID [facility] Last Admin: 04/11/17 07:45 Dose: 1 amp Ertapenem 0.5 gm/ Sodium (Chloride) 100 mls @ 200 mls/hr IVPB DAILY [facility] PRN Reason: Protocol Last Admin: 04/10/17 10:03 Dose: 200 mls/hr Methylprednisolone Sodium Succinate (Solu-Medrol -) 40 mg IVPUSH BID [facility] Stop: 04/11/17 22:01 Last Admin: 04/11/17 09:23 Dose: 40 mg Metoprolol Tartrate (Lopressor -) 25 mg PEG BID [facility] Last Admin: 04/11/17 09:23 Dose: 25 mg Ranitidine HCl (Zantac Oral Solution -) 150 mg PEG DAILY [facility] Last Admin: 04/11/17 09:23 Dose: 150 mg - Objective Vital Signs: Vital Signs Temperature 98.1 F 04/11/17 09:00 Pulse Rate 103 H 04/11/17 09:00 Respiratory Rate 18 04/11/17 09:00 Blood Pressure 143/90 04/11/17 09:00 O2 Sat by Pulse Oximetry (%) 95 04/11/17 09:00 Constitutional: Yes: No Distress Cardiovascular: Yes: Regular Rate and Rhythm Respiratory: Yes: Diminished Gastrointestinal: Yes: Normal Bowel Sounds, Soft. No: Tenderness Edema: No Labs: CBC, BMP 04/10/17 06:25 04/10/17 06:25 INR, PTT INR 1.29 (0.82-1.09) H 04/04/17 02:44 Problem List - Problems (1) Acute respiratory failure with hypoxia Code(s): J96.01 - ACUTE RESPIRATORY FAILURE WITH HYPOXIA (2) Atelectasis of left lung Code(s): J98.11 - ATELECTASIS (3) Pneumonia Code(s): J18.9 - PNEUMONIA, UNSPECIFIED ORGANISM (4) Sepsis Code(s): A41.9 - SEPSIS, UNSPECIFIED ORGANISM Qualifiers: Sepsis type: sepsis due to unspecified organism Qualified Code(s): A41.9 - Sepsis, unspecified organism (5) Dementia Code(s): F03.90 - UNSPECIFIED DEMENTIA WITHOUT BEHAVIORAL DISTURBANCE Qualifiers: Dementia type: Alzheimer's disease Alzheimer's disease onset: unspecified onset Dementia behavioral disturbance: without behavioral disturbance Qualified Code(s): G30.9 - Alzheimer's disease, unspecified; F02.80 - Dementia in other diseases classified elsewhere without behavioral disturbance; F02.80 - Dementia in other diseases classified elsewhere without behavioral disturbance; F02.80 - Dementia in other diseases classified elsewhere without behavioral disturbance (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 Assessment/Plan PLAN chest PT for atelectasis IV antibiotics, solumedrol Nebs, O2 on GT feeding blood cultures negative interventional radiology -need suprapubic cath DVT prophylaxis-- Heparin sc DNR/DNI
[2017-04-11] MEDS: ERTAPENEM SODIUM 0.5 GM in SODIUM CHLORIDE 100 ML IVPB SCH (13:16)
[2017-04-12] MEDS ORDERED: morphine SULFATE 4 MG/ML VIAL ONE ×2 (07:20→12:02)
--- NOTE | 2017-04-12 07:26 | HOSP ---
Subjective - Review of Symptoms Events since last encounter: called to see patient for SOB, tachypnea, tachycardia, diaphresis. Pt is nonverbal. Physical Examination Vital Signs: Vital Signs Temperature 97.4 F L 04/12/17 06:21 Pulse Rate 118 H 04/12/17 06:21 Respiratory Rate 20 04/12/17 06:21 Blood Pressure 136/63 04/12/17 06:21 O2 Sat by Pulse Oximetry (%) 98 04/11/17 21:00 710am P135 R48 BP126/57 SPO2 35% 4LNC Cardiovascular: Yes: Tachycardia, S1, S2 Respiratory: Yes: Other (rhonchi present, pt suctioned, white liquid. now lungs clear to auscultation after suctioning.) Gastrointestinal: Yes: Normal Bowel Sounds, Soft Labs: CBC, BMP 04/10/17 06:25 04/10/17 06:25 Hospitalist Encounter Assessment: respiratory distress--likely aspirated - NC changed to NRB - repositioned in bed to sit up higher - pt is DNR/DNI - CXR ordered stat - will give morphine 2mg for comfort - already on ertapenem. - cont ID consult - no family listed in chart, only guardian, attempted to call to notify of [facility], office closed until 830am 0725: After interventions, respiratory rate down to 28, ox sat up to 92. Cont current treatment
[2017-04-12] MEDS ORDERED: morphine SULFATE 4 MG/ML VIAL IVPUSH ONE (07:30)
[2017-04-12] MEDS: ALBUTEROL SO4 0.083% IH SOL 2.5 MG/3 ML VIAL.NEB. NEB SCH ×3 (08:27→20:33)
[2017-04-12] MEDS: METOPROLOL TARTRATE 25 MG TABLET (FP) PEG SCH ×2 (10:36→22:17)
[2017-04-12] MEDS: RANITIDINE HCL 150 MG/10 ML UNIT-DOSE PEG SCH (10:37)
[2017-04-12] MEDS: ERTAPENEM SODIUM 0.5 GM in SODIUM CHLORIDE 100 ML IVPB SCH (10:37)
[2017-04-12] MEDS ORDERED: MORPHINE 100 MG in SODIUM CHLORIDE 98 ML IVPB SCH (11:15)
--- NOTE | 2017-04-12 11:17 | PN ---
Progress Note, Physician Chief Complaint: events noted today AM he is on NRB-- 100% breathing is labored Feedings on hold - Current Medication List Current Medications: Active Medications Acetaminophen (Tylenol Suppository -) 325 mg [place] Q6H PRN PRN Reason: FEVER Acetaminophen (Tylenol Oral Solution -) 325 mg PEG Q6H PRN PRN Reason: FEVER/PAIN Last Admin: 04/09/17 12:37 Dose: 325 mg Albuterol Sulfate (Ventolin 0.083% Nebulizer Soln -) 1 amp NEB RTID [facility] Last Admin: 04/12/17 08:27 Dose: 1 amp Ertapenem 0.5 gm/ Sodium (Chloride) 100 mls @ 200 mls/hr IVPB DAILY [facility] PRN Reason: Protocol Last Admin: 04/12/17 10:37 Dose: 200 mls/hr Metoprolol Tartrate (Lopressor -) 25 mg PEG BID [facility] Last Admin: 04/12/17 10:36 Dose: 25 mg Ranitidine HCl (Zantac Oral Solution -) 150 mg PEG DAILY [facility] Last Admin: 04/12/17 10:37 Dose: 150 mg - Objective Vital Signs: Vital Signs Temperature 98.2 F 04/12/17 07:15 Pulse Rate 135 H 04/12/17 07:15 Respiratory Rate 30 H 04/12/17 07:15 Blood Pressure 126/57 04/12/17 07:15 O2 Sat by Pulse Oximetry (%) 98 04/11/17 21:00 Constitutional: Yes: Moderate Distress Cardiovascular: Yes: Regular Rate and Rhythm Respiratory: Yes: Diminished, Rales, Rhonchi Gastrointestinal: Yes: Normal Bowel Sounds, Soft. No: Tenderness Edema: No Labs: CBC, BMP 04/10/17 06:25 04/10/17 06:25 INR, PTT INR 1.29 (0.82-1.09) H 04/04/17 02:44 Problem List - Problems (1) Acute respiratory failure with hypoxia Code(s): J96.01 - ACUTE RESPIRATORY FAILURE WITH HYPOXIA (2) Atelectasis of left lung Code(s): J98.11 - ATELECTASIS (3) Pneumonia Code(s): J18.9 - PNEUMONIA, UNSPECIFIED ORGANISM (4) Sepsis Code(s): A41.9 - SEPSIS, UNSPECIFIED ORGANISM Qualifiers: Sepsis type: sepsis due to unspecified organism Qualified Code(s): A41.9 - Sepsis, unspecified organism (5) Dementia Code(s): F03.90 - UNSPECIFIED DEMENTIA WITHOUT BEHAVIORAL DISTURBANCE Qualifiers: Dementia type: Alzheimer's disease Alzheimer's disease onset: unspecified onset Dementia behavioral disturbance: without behavioral disturbance Qualified Code(s): G30.9 - Alzheimer's disease, unspecified; F02.80 - Dementia in other diseases classified elsewhere without behavioral disturbance; F02.80 - Dementia in other diseases classified elsewhere without behavioral disturbance; F02.80 - Dementia in other diseases classified elsewhere without behavioral disturbance (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 Poor prognosis has ESBL urine start Morphine drip Palliative consult DNR/DNI
--- NOTE | 2017-04-12 11:22 | PN ---
Progress Note, Physician History of Present Illness: Underwent perc. SPT placement yesterday, now with increased WOB on NRB, likely aspirated, enteral feeds held. - Current Medication List Current Medications: Active Medications Acetaminophen (Tylenol Suppository -) 325 mg [place] Q6H PRN PRN Reason: FEVER Acetaminophen (Tylenol Oral Solution -) 325 mg PEG Q6H PRN PRN Reason: FEVER/PAIN Last Admin: 04/09/17 12:37 Dose: 325 mg Albuterol Sulfate (Ventolin 0.083% Nebulizer Soln -) 1 amp NEB RTID [facility] Last Admin: 04/12/17 08:27 Dose: 1 amp Ertapenem 0.5 gm/ Sodium (Chloride) 100 mls @ 200 mls/hr IVPB DAILY [facility] PRN Reason: Protocol Last Admin: 04/12/17 10:37 Dose: 200 mls/hr Morphine Sulfate 100 mg/ (Sodium Chloride) 100 mls @ 1 mls/hr IVPB TITR [facility]; 1 MG/HR PRN Reason: Protocol Metoprolol Tartrate (Lopressor -) 25 mg PEG BID [facility] Last Admin: 04/12/17 10:36 Dose: 25 mg Ranitidine HCl (Zantac Oral Solution -) 150 mg PEG DAILY [facility] Last Admin: 04/12/17 10:37 Dose: 150 mg - Objective Vital Signs: Vital Signs Temperature 98.2 F 04/12/17 07:15 Pulse Rate 135 H 04/12/17 07:15 Respiratory Rate 30 H 04/12/17 07:15 Blood Pressure 126/57 04/12/17 07:15 O2 Sat by Pulse Oximetry (%) 98 04/11/17 21:00 Constitutional: Yes: Thin Neck: Yes: Supple Cardiovascular: Yes: Tachycardia Respiratory: Yes: Regular, Diminished, On Venti-Mask, SOB Gastrointestinal: Yes: Soft, Hypoactive Bowel Sounds Edema: No Labs: CBC, BMP 04/10/17 06:25 04/10/17 06:25 INR, PTT INR 1.29 (0.82-1.09) H 04/04/17 02:44 - ....Imaging Chest X-ray: Report Reviewed (No change left ATX/infiltrate) Problem List - Problems (1) Acute respiratory failure with hypoxia Code(s): J96.01 - ACUTE RESPIRATORY FAILURE WITH HYPOXIA (2) Atelectasis of left lung Code(s): J98.11 - ATELECTASIS (3) Hypokalemia Code(s): E87.6 - HYPOKALEMIA (4) Sepsis Code(s): A41.9 - SEPSIS, UNSPECIFIED ORGANISM Qualifiers: Sepsis type: sepsis due to unspecified organism Qualified Code(s): A41.9 - Sepsis, unspecified organism (5) UTI (urinary tract infection) Code(s): N39.0 - URINARY TRACT INFECTION, SITE NOT SPECIFIED Qualifiers: Urinary tract infection type: site unspecified Hematuria presence: without hematuria Qualified Code(s): N39.0 - Urinary tract infection, site not specified (6) Aspiration pneumonia Code(s): J69.0 - PNEUMONITIS DUE TO INHALATION OF FOOD AND VOMIT Qualifiers: Aspiration pneumonia type: unspecified Laterality: right Lung location: lower lobe of lung Qualified Code(s): J69.0 - Pneumonitis due to inhalation of food and vomit (7) Paroxysmal supraventricular tachycardia seen on design and sales consultant Code(s): I47.1 - SUPRAVENTRICULAR TACHYCARDIA (8) Stress ulcer of stomach Code(s): K25.9 - GASTRIC ULCER, UNSP ACUTE OR CHRONIC, W/O HEMOR OR PERF Assessment/Plan 1. Acute Hypoxic Respiratory Failure due to left lung atelectasis, possible aspiration pneumonia 2. 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 Sepsis Syndrome related to the above-noted presentation 4. Paroxysmal supraventricular tachycardia currently in sinus rhythm 5. Hypertensive cardiovascular disease 6. History of hematemesis referable to stress gastritis 7. Dementia post PEG insertion 8. Anemia PLAN: 1. Continue Lopressor 25 bid 2. Antibiotics as per the primary team 3. Management of the above-noted left lung atelectasis as per the pulmonary team , continuation of Bronchodilators, O2 to keep SpO2 >90%, Aspiration precautions 4. MS drip started for comfort measures which is appropriate given his overall condition and grave prognosis
--- NOTE | 2017-04-12 11:24 | PN ---
Progress Note (short form) - Note Progress Note: Clinical decompensation overnight. Now on 100% NRBM. Tachypneic. CXR: No gross change in left infiltrate/atelectasis Intake & Output 04/09/17 04/10/17 04/11/17 04/12/17 23:59 23:59 23:59 23:59 Intake Total 9864 046 8758 620 Output Total 700 1250 1050 400 Balance 474 -700 200 220 Last Vital Signs Temp Pulse Resp BP Pulse Ox 98.2 F 135 H 30 H 126/57 98 04/12/17 07:15 04/12/17 07:15 04/12/17 07:15 04/12/17 07:15 04/11/17 21:00 Active Medications Acetaminophen (Tylenol Suppository -) 325 mg [place] Q6H PRN PRN Reason: FEVER Acetaminophen (Tylenol Oral Solution -) 325 mg PEG Q6H PRN PRN Reason: FEVER/PAIN Last Admin: 04/09/17 12:37 Dose: 325 mg Albuterol Sulfate (Ventolin 0.083% Nebulizer Soln -) 1 amp NEB RTID [facility] Last Admin: 04/12/17 08:27 Dose: 1 amp Ertapenem 0.5 gm/ Sodium (Chloride) 100 mls @ 200 mls/hr IVPB DAILY [facility] PRN Reason: Protocol Last Admin: 04/12/17 10:37 Dose: 200 mls/hr Morphine Sulfate 100 mg/ (Sodium Chloride) 100 mls @ 1 mls/hr IVPB TITR [facility]; 1 MG/HR PRN Reason: Protocol Metoprolol Tartrate (Lopressor -) 25 mg PEG BID [facility] Last Admin: 04/12/17 10:36 Dose: 25 mg Ranitidine HCl (Zantac Oral Solution -) 150 mg PEG DAILY [facility] Last Admin: 04/12/17 10:37 Dose: 150 mg Constitutional: Yes: Tachypneic, AMS Eyes: Yes: WNL HENT: Yes: WNL Neck: Yes: Supple Cardiovascular: Yes: Regular Rate and Rhythm, S1, S2 Respiratory: Yes: Diminshed on the left, bilateral Rhonchi: R>L, Mild Tachypnea Gastrointestinal: Yes: Normal Bowel Sounds, Soft Extremities: Yes: contracted Edema: No Labs: Laboratory Results - last 24 hr 04/12/17 07:26 POC Glucometer 186 Assessment/Plan Problem List - Problems (1) Acute respiratory failure with hypoxia Code(s): J96.01 - ACUTE RESPIRATORY FAILURE WITH HYPOXIA (2) Sepsis Code(s): A41.9 - SEPSIS, UNSPECIFIED ORGANISM Qualifiers: Sepsis type: sepsis due to unspecified organism Qualified Code(s): A41.9 - Sepsis, unspecified organism (3) UTI (urinary tract infection) Code(s): N39.0 - URINARY TRACT INFECTION, SITE NOT SPECIFIED Qualifiers: Urinary tract infection type: site unspecified Hematuria presence: without hematuria Qualified Code(s): N39.0 - Urinary tract infection, site not specified (4) Atelectasis of left lung Code(s): J98.11 - ATELECTASIS (5) Pneumonia Code(s): J18.9 - PNEUMONIA, UNSPECIFIED ORGANISM (6) Dementia Code(s): F03.90 - UNSPECIFIED DEMENTIA WITHOUT BEHAVIORAL DISTURBANCE Qualifiers: Dementia type: Alzheimer's disease Alzheimer's disease onset: unspecified onset Dementia behavioral disturbance: without behavioral disturbance Qualified Code(s): G30.9 - Alzheimer's disease, unspecified; F02.80 - Dementia in other diseases classified elsewhere without behavioral disturbance; F02.80 - Dementia in other diseases classified elsewhere without behavioral disturbance; F02.80 - Dementia in other diseases classified elsewhere without behavioral disturbance Assessment/Plan Left atelectasis Acute Hypoxic Respiratory Failure UTI Sepsis Left Atelectasis improving r/o Pneumonia HTN Hyperlipidemia Alzheimer's Dementia - Noted MS cain to be started for comfort measures which is appropriate given his overall condition and grave prognosis - O2 to keep SpO2 >90% - Aspiration precautions Dr Mathew
[2017-04-12] MEDS: MORPHINE SULFATE 10 MG/1 ML *VIAL IVPUSH PRN ×2 (11:56→14:57)
[2017-04-12] MEDS: MORPHINE 100 MG in SODIUM CHLORIDE 98 ML IVPB SCH (18:29)
[2017-04-13] MEDS: ALBUTEROL SO4 0.083% IH SOL 2.5 MG/3 ML VIAL.NEB. NEB SCH ×3 (07:42→20:31)
[2017-04-13] MEDS: ERTAPENEM SODIUM 0.5 GM in SODIUM CHLORIDE 100 ML IVPB SCH ×2 (09:40→09:45)
[2017-04-13] MEDS: RANITIDINE HCL 150 MG/10 ML UNIT-DOSE PEG SCH (09:45)
[2017-04-13] MEDS: METOPROLOL TARTRATE 25 MG TABLET (FP) PEG SCH ×2 (09:45→21:18)
--- NOTE | 2017-04-13 11:00 | PN ---
Progress Note, Physician History of Present Illness: pt seen/ examined. Events noted On morphine drip- comfortable - Current Medication List Current Medications: Active Medications Acetaminophen (Tylenol Suppository -) 325 mg [place] Q6H PRN PRN Reason: FEVER Acetaminophen (Tylenol Oral Solution -) 325 mg PEG Q6H PRN PRN Reason: FEVER/PAIN Last Admin: 04/09/17 12:37 Dose: 325 mg Albuterol Sulfate (Ventolin 0.083% Nebulizer Soln -) 1 amp NEB RTID [facility] Last Admin: 04/13/17 07:42 Dose: 1 amp Ertapenem 0.5 gm/ Sodium (Chloride) 100 mls @ 200 mls/hr IVPB DAILY [facility] PRN Reason: Protocol Last Admin: 04/13/17 09:45 Dose: 200 mls/hr Morphine Sulfate 100 mg/ (Sodium Chloride) 100 mls @ 1 mls/hr IVPB TITR [facility]; 1 MG/HR PRN Reason: Protocol Last Admin: 04/12/17 18:29 Dose: 1 mg/hr, 1 mls/hr Metoprolol Tartrate (Lopressor -) 25 mg PEG BID [facility] Last Admin: 04/13/17 09:45 Dose: 25 mg Ranitidine HCl (Zantac Oral Solution -) 150 mg PEG DAILY [facility] Last Admin: 04/13/17 09:45 Dose: 150 mg - Objective Vital Signs: Vital Signs Temperature 98 F 04/13/17 05:48 Pulse Rate 67 04/13/17 05:48 Respiratory Rate 20 04/13/17 05:48 Blood Pressure 138/74 04/13/17 05:48 O2 Sat by Pulse Oximetry (%) 100 04/12/17 21:00 Constitutional: Yes: No Distress Cardiovascular: Yes: Regular Rate and Rhythm Respiratory: Yes: Diminished Gastrointestinal: Yes: Soft, Other (suprapubic catheter) Edema: LLE: Trace, RLE: Trace Labs: CBC, BMP 04/10/17 06:25 04/10/17 06:25 INR, PTT INR 1.29 (0.82-1.09) H 04/04/17 02:44 Problem List - Problems (1) Anemia Code(s): D64.9 - ANEMIA, UNSPECIFIED (2) Hypokalemia Code(s): E87.6 - HYPOKALEMIA (3) Acute respiratory failure with hypoxia Code(s): J96.01 - ACUTE RESPIRATORY FAILURE WITH HYPOXIA (4) Pneumonia Code(s): J18.9 - PNEUMONIA, UNSPECIFIED ORGANISM (5) Dementia Code(s): F03.90 - UNSPECIFIED DEMENTIA WITHOUT BEHAVIORAL DISTURBANCE Qualifiers: Dementia type: Alzheimer's disease Alzheimer's disease onset: unspecified onset Dementia behavioral disturbance: without behavioral disturbance Qualified Code(s): G30.9 - Alzheimer's disease, unspecified; F02.80 - Dementia in other diseases classified elsewhere without behavioral disturbance; F02.80 - Dementia in other diseases classified elsewhere without behavioral disturbance; F02.80 - Dementia in other diseases classified elsewhere without behavioral disturbance Assessment/Plan Discussed with Luzma cain Inpatient hospice comfort care start on feeding - no clear directions from pt will follow Pt is DNR/ Di.
--- NOTE | 2017-04-13 11:30 | PN ---
Progress Note (short form) - Note Progress Note: PULMONARY APPEARS COMFORTABLE ON MS [place]ILL HAVE DISCONTINUED IV ANTIBIOTICS PLEASE CALL ROSITA TOLEDO MD Problem List - Problems (1) Acute respiratory failure with hypoxia Code(s): J96.01 - ACUTE RESPIRATORY FAILURE WITH HYPOXIA (2) Atelectasis of left lung Code(s): J98.11 - ATELECTASIS (3) Pleural effusion on left Code(s): J90 - PLEURAL EFFUSION, NOT ELSEWHERE CLASSIFIED (4) Pneumonia Code(s): J18.9 - PNEUMONIA, UNSPECIFIED ORGANISM (5) Respiratory failure Code(s): J96.90 - RESPIRATORY FAILURE, UNSP, UNSP W HYPOXIA OR HYPERCAPNIA (6) Sepsis Code(s): A41.9 - SEPSIS, UNSPECIFIED ORGANISM Qualifiers: Sepsis type: sepsis due to unspecified organism Qualified Code(s): A41.9 - Sepsis, unspecified organism (7) UTI (urinary tract infection) Code(s): N39.0 - URINARY TRACT INFECTION, SITE NOT SPECIFIED Qualifiers: Urinary tract infection type: site unspecified Hematuria presence: without hematuria Qualified Code(s): N39.0 - Urinary tract infection, site not specified (8) Aspiration pneumonia Code(s): J69.0 - PNEUMONITIS DUE TO INHALATION OF FOOD AND VOMIT Qualifiers: Aspiration pneumonia type: unspecified Laterality: right Lung location: lower lobe of lung Qualified Code(s): J69.0 - Pneumonitis due to inhalation of food and vomit
--- NOTE | 2017-04-13 14:06 | PN ---
Progress Note (short form) - Note Progress Note: Placed on morphine gtt for palliative end of life care, will sign off, please call back with questions. Problem List - Problems (1) Acute respiratory failure with hypoxia Code(s): J96.01 - ACUTE RESPIRATORY FAILURE WITH HYPOXIA (2) Atelectasis of left lung Code(s): J98.11 - ATELECTASIS (3) Hypokalemia Code(s): E87.6 - HYPOKALEMIA (4) Sepsis Code(s): A41.9 - SEPSIS, UNSPECIFIED ORGANISM Qualifiers: Sepsis type: sepsis due to unspecified organism Qualified Code(s): A41.9 - Sepsis, unspecified organism (5) UTI (urinary tract infection) Code(s): N39.0 - URINARY TRACT INFECTION, SITE NOT SPECIFIED Qualifiers: Urinary tract infection type: site unspecified Hematuria presence: without hematuria Qualified Code(s): N39.0 - Urinary tract infection, site not specified (6) Aspiration pneumonia Code(s): J69.0 - PNEUMONITIS DUE TO INHALATION OF FOOD AND VOMIT Qualifiers: Aspiration pneumonia type: unspecified Laterality: right Lung location: lower lobe of lung Qualified Code(s): J69.0 - Pneumonitis due to inhalation of food and vomit (7) Paroxysmal supraventricular tachycardia seen on hand splitter Code(s): I47.1 - SUPRAVENTRICULAR TACHYCARDIA (8) Stress ulcer of stomach Code(s): K25.9 - GASTRIC ULCER, UNSP ACUTE OR CHRONIC, W/O HEMOR OR PERF
[2017-04-13] MEDS: MORPHINE 100 MG in SODIUM CHLORIDE 98 ML IVPB SCH (16:27)
[2017-04-14] MEDS: ALBUTEROL SO4 0.083% IH SOL 2.5 MG/3 ML VIAL.NEB. NEB SCH ×3 (08:20→20:39)
[2017-04-14] MEDS: METOPROLOL TARTRATE 25 MG TABLET (FP) PEG SCH ×2 (09:26→21:34)
[2017-04-14] MEDS: RANITIDINE HCL 150 MG/10 ML UNIT-DOSE PEG SCH (09:26)
--- NOTE | 2017-04-14 12:47 | PN ---
Progress Note, Physician History of Present Illness: comfortable. on morphine drip. - Current Medication List Current Medications: Active Medications Acetaminophen (Tylenol Suppository -) 325 mg [place] Q6H PRN PRN Reason: FEVER Acetaminophen (Tylenol Oral Solution -) 325 mg PEG Q6H PRN PRN Reason: FEVER/PAIN Last Admin: 04/09/17 12:37 Dose: 325 mg Albuterol Sulfate (Ventolin 0.083% Nebulizer Soln -) 1 amp NEB RTID [facility] Last Admin: 04/14/17 08:20 Dose: 1 amp Morphine Sulfate 100 mg/ (Sodium Chloride) 100 mls @ 1 mls/hr IVPB TITR [facility]; 1 MG/HR PRN Reason: Protocol Last Admin: 04/13/17 16:27 Dose: 1 mg/hr, 1 mls/hr Metoprolol Tartrate (Lopressor -) 25 mg PEG BID [facility] Last Admin: 04/14/17 09:26 Dose: 25 mg Ranitidine HCl (Zantac Oral Solution -) 150 mg PEG DAILY [facility] Last Admin: 04/14/17 09:26 Dose: 150 mg - Objective Vital Signs: Vital Signs Temperature 97.6 F 04/14/17 09:00 Pulse Rate 86 04/14/17 09:00 Respiratory Rate 20 04/14/17 09:00 Blood Pressure 121/49 04/14/17 09:00 O2 Sat by Pulse Oximetry (%) 97 04/14/17 09:00 Constitutional: Yes: No Distress Cardiovascular: Yes: Regular Rate and Rhythm Respiratory: Yes: Diminished Gastrointestinal: Yes: Soft Edema: LLE: 2+, RLE: 2+ Labs: CBC, BMP 04/10/17 06:25 04/10/17 06:25 INR, PTT INR 1.29 (0.82-1.09) H 04/04/17 02:44 Problem List - Problems (1) Anemia Code(s): D64.9 - ANEMIA, UNSPECIFIED (2) Hypokalemia Code(s): E87.6 - HYPOKALEMIA (3) Acute respiratory failure with hypoxia Code(s): J96.01 - ACUTE RESPIRATORY FAILURE WITH HYPOXIA (4) Pneumonia Code(s): J18.9 - PNEUMONIA, UNSPECIFIED ORGANISM (5) Dementia Code(s): F03.90 - UNSPECIFIED DEMENTIA WITHOUT BEHAVIORAL DISTURBANCE Qualifiers: Dementia type: Alzheimer's disease Alzheimer's disease onset: unspecified onset Dementia behavioral disturbance: without behavioral disturbance Qualified Code(s): G30.9 - Alzheimer's disease, unspecified; F02.80 - Dementia in other diseases classified elsewhere without behavioral disturbance; F02.80 - Dementia in other diseases classified elsewhere without behavioral disturbance; F02.80 - Dementia in other diseases classified elsewhere without behavioral disturbance Assessment/Plan comfortable Morphine drip Inpatient hospice comfort care started on feeding -tolerating Pt is DNR/ Di.
--- NOTE | 2017-04-14 15:40 | PN ---
Progress Note (short form) - Note Progress Note: Chief Complaint: Events noted, notes reviewed, patient remains nonverbal, no acute distress, on Morphine Sulfate History of Present Illness: Seen and examined. Events noted, notes reviewed, patient remains nonverbal, no acute distress, on Morphine Sulfate - Current Medication List Current Medications Acetaminophen (Tylenol Suppository -) 325 mg [place] Q6H PRN PRN Reason: FEVER Acetaminophen (Tylenol Oral Solution -) 325 mg PEG Q6H PRN PRN Reason: FEVER/PAIN Last Admin: 04/09/17 12:37 Dose: 325 mg Albuterol Sulfate (Ventolin 0.083% Nebulizer Soln -) 1 amp NEB RTID [facility] Last Admin: 04/14/17 08:20 Dose: 1 amp Morphine Sulfate 100 mg/ (Sodium Chloride) 100 mls @ 1 mls/hr IVPB TITR [facility]; 1 MG/HR PRN Reason: Protocol Last Admin: 04/13/17 16:27 Dose: 1 mg/hr, 1 mls/hr Metoprolol Tartrate (Lopressor -) 25 mg PEG BID [facility] Last Admin: 04/14/17 09:26 Dose: 25 mg Ranitidine HCl (Zantac Oral Solution -) 150 mg PEG DAILY [facility] Last Admin: 04/14/17 09:26 Dose: 150 mg Review of Systems: Unable to Obtain - Objective Vital Signs: Last Vital Signs Temp Pulse Resp BP Pulse Ox 97.3 F L 87 20 133/63 97 04/14/17 14:31 04/14/17 14:31 04/14/17 14:31 04/14/17 14:31 04/14/17 09:00 Intake & Output 04/11/17 04/12/17 04/13/17 04/14/17 23:59 23:59 23:59 23:59 Intake Total 1250 820 528 294 Output Total 1050 800 450 100 Balance 200 20 78 194 HEENT: Atraumatic Neck: Supple Negative JVD No Bruit Cardiovascular: S1 S2 Regular Rate and Rhythm Respiratory: Diminished Gastrointestinal: Soft, Benign, Normal Bowel Sounds Ext: No Edema Labs: CBC, BMP 04/10/17 06:25 04/10/17 06:25 Assessment/Plan ASSESSMENT: 1. Acute Hypoxic Respiratory Failure due to left lung atelectasis, possible aspiration pneumonia, resolved 2. 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 Sepsis Syndrome related to the above-noted presentations, resolved 4. Paroxysmal supraventricular tachycardia 5. Hypertensive cardiovascular disease 6. History of hematemesis referable to stress gastritis 7. Dementia post PEG insertion 8. Anemia PLAN: 1. Continue Lopressor 2. Continue Bronchodilators as per the primary team 3. Continue Morphine Sulfate Montana Owens MD
[2017-04-14] MEDS: MORPHINE 100 MG in SODIUM CHLORIDE 98 ML IVPB SCH ×2 (17:10→17:27)
[2017-04-14] MEDS: ACETAMINOPHEN 650 MG/20.3 ML ORAL SOLUTION (CUPS) PEG PRN (21:34)
[2017-04-15] MEDS: ALBUTEROL SO4 0.083% IH SOL 2.5 MG/3 ML VIAL.NEB. NEB SCH (08:12)
[2017-04-15] MEDS: METOPROLOL TARTRATE 25 MG TABLET (FP) PEG SCH ×2 (09:34→21:16)
[2017-04-15] MEDS: RANITIDINE HCL 150 MG/10 ML UNIT-DOSE PEG SCH (09:34)
--- NOTE | 2017-04-15 11:47 | PN ---
Progress Note, Physician History of Present Illness: comfortable no distress - Current Medication List Current Medications: Active Medications Acetaminophen (Tylenol Suppository -) 325 mg [place] Q6H PRN PRN Reason: FEVER Acetaminophen (Tylenol Oral Solution -) 325 mg PEG Q6H PRN PRN Reason: FEVER/PAIN Last Admin: 04/14/17 21:34 Dose: 325 mg Albuterol Sulfate (Ventolin 0.083% Nebulizer Soln -) 1 amp NEB [facility]ID [facility] Last Admin: 04/15/17 08:12 Dose: 1 amp Morphine Sulfate 100 mg/ (Sodium Chloride) 100 mls @ 1 mls/hr IVPB TITR [facility]; 1 MG/HR PRN Reason: Protocol Last Admin: 04/14/17 17:27 Dose: 1 mg/hr, 1 mls/hr Metoprolol Tartrate (Lopressor -) 25 mg PEG BID [facility] Last Admin: 04/15/17 09:34 Dose: 25 mg Ranitidine HCl (Zantac Oral Solution -) 150 mg PEG DAILY [facility] Last Admin: 04/15/17 09:34 Dose: 150 mg - Objective Vital Signs: Vital Signs Temperature 97.4 F L 04/15/17 09:00 Pulse Rate 96 H 04/15/17 09:00 Respiratory Rate 20 04/15/17 09:00 Blood Pressure 143/62 04/15/17 09:00 O2 Sat by Pulse Oximetry (%) 97 04/14/17 21:00 Constitutional: Yes: No Distress, Calm Cardiovascular: Yes: Regular Rate and Rhythm Respiratory: Yes: CTA Bilaterally Gastrointestinal: Yes: Soft Genitourinary: Yes: Other (suprapubic catheter +) Edema: LLE: 2+, RLE: 2+ Labs: CBC, BMP 04/10/17 06:25 04/10/17 06:25 INR, PTT INR 1.29 (0.82-1.09) H 04/04/17 02:44 Problem List - Problems (1) Anemia Code(s): D64.9 - ANEMIA, UNSPECIFIED (2) Hypokalemia Code(s): E87.6 - HYPOKALEMIA (3) Acute respiratory failure with hypoxia Code(s): J96.01 - ACUTE RESPIRATORY FAILURE WITH HYPOXIA (4) Pneumonia Code(s): J18.9 - PNEUMONIA, UNSPECIFIED ORGANISM (5) Dementia Code(s): F03.90 - UNSPECIFIED DEMENTIA WITHOUT BEHAVIORAL DISTURBANCE Qualifiers: Dementia type: Alzheimer's disease Alzheimer's disease onset: unspecified onset Dementia behavioral disturbance: without behavioral disturbance Qualified Code(s): G30.9 - Alzheimer's disease, unspecified; F02.80 - Dementia in other diseases classified elsewhere without behavioral disturbance; F02.80 - Dementia in other diseases classified elsewhere without behavioral disturbance; F02.80 - Dementia in other diseases classified elsewhere without behavioral disturbance Assessment/Plan comfortable Morphine drip Inpatient hospice comfort care started on feeding -tolerating Pt is DNR/ Di. nurse reports - pt do not have bm x few days will add miralax prn.
[2017-04-15] MEDS: POLYETHYLENE GLYCOL 3350 119 GM BTL PEG PRN (12:04)
--- NOTE | 2017-04-15 13:05 | PN ---
Progress Note (short form) - Note Progress Note: Chief Complaint: Events noted, notes reviewed, patient remains nonverbal, no acute distress, on Morphine Sulfate History of Present Illness: Seen and examined. Events noted, notes reviewed, patient remains nonverbal, no acute distress, on Morphine Sulfate - Current Medication List Current Medications Acetaminophen (Tylenol Suppository -) 325 mg MS Q6H PRN PRN Reason: FEVER Acetaminophen (Tylenol Oral Solution -) 325 mg PEG Q6H PRN PRN Reason: FEVER/PAIN Last Admin: 04/14/17 21:34 Dose: 325 mg Albuterol Sulfate (Ventolin 0.083% Nebulizer Soln -) 1 amp NEB RTID [facility] Last Admin: 04/15/17 08:12 Dose: 1 amp Morphine Sulfate 100 mg/ (Sodium Chloride) 100 mls @ 1 mls/hr IVPB TITR PIPPA; 1 MG/HR PRN Reason: Protocol Last Admin: 04/14/17 17:27 Dose: 1 mg/hr, 1 mls/hr Metoprolol Tartrate (Lopressor -) 25 mg PEG BID [facility] Last Admin: 04/15/17 09:34 Dose: 25 mg Polyethylene Glycol (Miralax (For Daily Use) -) 17 gm PEG DAILY PRN PRN Reason: CONSTIPATION Last Admin: 04/15/17 12:04 Dose: 17 grams Ranitidine HCl (Zantac Oral Solution -) 150 mg PEG DAILY [facility] Last Admin: 04/15/17 09:34 Dose: 150 mg - Objective Vital Signs: Last Vital Signs Temp Pulse Resp BP Pulse Ox 97.4 F L 96 H 20 143/62 97 04/15/17 09:00 04/15/17 09:00 04/15/17 09:00 04/15/17 09:00 04/14/17 21:00 Intake & Output 04/12/17 04/13/17 04/14/17 04/15/17 23:59 23:59 23:59 23:59 Intake Total 820 528 458 287 Output Total 800 450 200 200 Balance 20 78 258 87 HEENT: Atraumatic Neck: Supple Negative JVD No Bruit Cardiovascular: S1 S2 Regular Rate and Rhythm Respiratory: Diminished Gastrointestinal: Soft, Benign, Normal Bowel Sounds Ext: No Edema Labs: CBC, BMP 04/10/17 06:25 04/10/17 06:25 Assessment/Plan ASSESSMENT: 1. Acute Hypoxic Respiratory Failure due to left lung atelectasis, possible aspiration pneumonia, resolved 2. 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 Sepsis Syndrome related to the above-noted presentations, resolved 4. Paroxysmal supraventricular tachycardia 5. Hypertensive cardiovascular disease 6. History of hematemesis referable to stress gastritis 7. Dementia post PEG insertion 8. Anemia PLAN: 1. Continue Lopressor 2. Continue Bronchodilators as per the primary team 3. Continue Morphine Sulfate Montana Owens MD
[2017-04-15] MEDS: MORPHINE 100 MG in SODIUM CHLORIDE 98 ML IVPB SCH (16:56)
[2017-04-15] MEDS: ACETAMINOPHEN 650 MG/20.3 ML ORAL SOLUTION (CUPS) PEG PRN (23:31)
[2017-04-16] MEDS: RANITIDINE HCL 150 MG/10 ML UNIT-DOSE PEG SCH (09:07)
[2017-04-16] MEDS: METOPROLOL TARTRATE 25 MG TABLET (FP) PEG SCH ×2 (09:08→21:33)
[2017-04-16] MEDS: POLYETHYLENE GLYCOL 3350 119 GM BTL PEG PRN (09:08)
[2017-04-16] MEDS ORDERED: ALBUTEROL SO4 0.083% IH SOL 2.5 MG/3 ML VIAL.NEB. NEB PRN (09:14)
--- NOTE | 2017-04-16 09:17 | PN ---
Progress Note, Physician History of Present Illness: comfortable no distress. opens eyes. Do not communicate. No new events - Current Medication List Current Medications: Active Medications Acetaminophen (Tylenol Suppository -) 325 mg DE Q6H PRN PRN Reason: FEVER Acetaminophen (Tylenol Oral Solution -) 325 mg PEG Q6H PRN PRN Reason: FEVER/PAIN Last Admin: 04/15/17 23:31 Dose: 325 mg Albuterol Sulfate (Ventolin 0.083% Nebulizer Soln -) 1 amp NEB Q6H PRN PRN Reason: SHORT OF BREATH/WHEEZING Morphine Sulfate 100 mg/ (Sodium Chloride) 100 mls @ 1 mls/hr IVPB TITR PIPPA; 1 MG/HR PRN Reason: Protocol Last Admin: 04/15/17 16:56 Dose: 1 mg/hr, 1 mls/hr Metoprolol Tartrate (Lopressor -) 25 mg PEG BID [facility] Last Admin: 04/15/17 21:16 Dose: 25 mg Polyethylene Glycol (Miralax (For Daily Use) -) 17 gm PEG DAILY PRN PRN Reason: CONSTIPATION Last Admin: 04/15/17 12:04 Dose: 17 grams Ranitidine HCl (Zantac Oral Solution -) 150 mg PEG DAILY [facility] Last Admin: 04/15/17 09:34 Dose: 150 mg - Objective Vital Signs: Vital Signs Temperature 99.9 F H 04/16/17 05:55 Pulse Rate 86 04/16/17 05:55 Respiratory Rate 20 04/16/17 05:55 Blood Pressure 156/73 04/16/17 05:55 O2 Sat by Pulse Oximetry (%) 96 04/15/17 21:00 Constitutional: Yes: No Distress Cardiovascular: Yes: Regular Rate and Rhythm Respiratory: Yes: Diminished Gastrointestinal: Yes: Soft, Other (suprapubic catheter) Edema: LLE: 1+, RLE: 1+ Labs: CBC, BMP 04/10/17 06:25 04/10/17 06:25 INR, PTT INR 1.29 (0.82-1.09) H 04/04/17 02:44 Problem List - Problems (1) Anemia Code(s): D64.9 - ANEMIA, UNSPECIFIED (2) Hypokalemia Code(s): E87.6 - HYPOKALEMIA (3) Acute respiratory failure with hypoxia Code(s): J96.01 - ACUTE RESPIRATORY FAILURE WITH HYPOXIA (4) Pneumonia Code(s): J18.9 - PNEUMONIA, UNSPECIFIED ORGANISM (5) Dementia Code(s): F03.90 - UNSPECIFIED DEMENTIA WITHOUT BEHAVIORAL DISTURBANCE Qualifiers: Dementia type: Alzheimer's disease Alzheimer's disease onset: unspecified onset Dementia behavioral disturbance: without behavioral disturbance Qualified Code(s): G30.9 - Alzheimer's disease, unspecified; F02.80 - Dementia in other diseases classified elsewhere without behavioral disturbance; F02.80 - Dementia in other diseases classified elsewhere without behavioral disturbance; F02.80 - Dementia in other diseases classified elsewhere without behavioral disturbance Assessment/Plan comfortable Morphine drip Inpatient hospice comfort care Pt is DNR/ Di.
[2017-04-16] MEDS: ACETAMINOPHEN 650 MG/20.3 ML ORAL SOLUTION (CUPS) PEG PRN (14:52)
[2017-04-16] MEDS: MORPHINE 100 MG in SODIUM CHLORIDE 98 ML IVPB SCH (16:38)
[2017-04-17] MEDS: POLYETHYLENE GLYCOL 3350 119 GM BTL PEG PRN ×2 (05:48→10:02)
[2017-04-17] MEDS: RANITIDINE HCL 150 MG/10 ML UNIT-DOSE PEG SCH (10:01)
[2017-04-17] MEDS: METOPROLOL TARTRATE 25 MG TABLET (FP) PEG SCH ×2 (10:02→21:17)
--- NOTE | 2017-04-17 11:01 | PN ---
Progress Note, Physician Chief Complaint: see dc summary - Current Medication List Current Medications: Active Medications Acetaminophen (Tylenol Suppository -) 325 mg [place] Q6H PRN PRN Reason: FEVER Acetaminophen (Tylenol Oral Solution -) 325 mg PEG Q6H PRN PRN Reason: FEVER/PAIN Last Admin: 04/16/17 14:52 Dose: 325 mg Albuterol Sulfate (Ventolin 0.083% Nebulizer Soln -) 1 amp NEB Q6H PRN PRN Reason: SHORT OF BREATH/WHEEZING Morphine Sulfate 100 mg/ (Sodium Chloride) 100 mls @ 1 mls/hr IVPB TITR PIPPA; 1 MG/HR PRN Reason: Protocol Last Admin: 04/16/17 16:38 Dose: 1 mg/hr, 1 mls/hr Metoprolol Tartrate (Lopressor -) 25 mg PEG BID [facility] Last Admin: 04/17/17 10:02 Dose: 25 mg Polyethylene Glycol (Miralax (For Daily Use) -) 17 gm PEG DAILY PRN PRN Reason: CONSTIPATION Last Admin: 04/17/17 10:02 Dose: 17 grams Ranitidine HCl (Zantac Oral Solution -) 150 mg PEG DAILY [facility] Last Admin: 04/17/17 10:01 Dose: 150 mg - Objective Vital Signs: Vital Signs Temperature 98.1 F 04/17/17 06:00 Pulse Rate 76 04/17/17 06:00 Respiratory Rate 16 04/17/17 06:00 Blood Pressure 141/64 04/17/17 06:00 O2 Sat by Pulse Oximetry (%) 96 04/16/17 20:36 Labs: CBC, BMP 04/10/17 06:25 04/10/17 06:25 INR, PTT INR 1.29 (0.82-1.09) H 04/04/17 02:44 Problem List - Problems (1) Acute respiratory failure with hypoxia Code(s): J96.01 - ACUTE RESPIRATORY FAILURE WITH HYPOXIA (2) Atelectasis of left lung Code(s): J98.11 - ATELECTASIS (3) Pneumonia Code(s): J18.9 - PNEUMONIA, UNSPECIFIED ORGANISM (4) Sepsis Code(s): A41.9 - SEPSIS, UNSPECIFIED ORGANISM Qualifiers: Sepsis type: sepsis due to unspecified organism Qualified Code(s): A41.9 - Sepsis, unspecified organism (5) Dementia Code(s): F03.90 - UNSPECIFIED DEMENTIA WITHOUT BEHAVIORAL DISTURBANCE Qualifiers: Dementia type: Alzheimer's disease Alzheimer's disease onset: unspecified onset Dementia behavioral disturbance: without behavioral disturbance Qualified Code(s): G30.9 - Alzheimer's disease, unspecified; F02.80 - Dementia in other diseases classified elsewhere without behavioral disturbance; F02.80 - Dementia in other diseases classified elsewhere without behavioral disturbance; F02.80 - Dementia in other diseases classified elsewhere without behavioral disturbance (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
--- NOTE | 2017-04-17 11:32 | DS ---
Physical Examination Vital Signs: Vital Signs Temperature 98.1 F 04/17/17 06:00 Pulse Rate 76 04/17/17 06:00 Respiratory Rate 16 04/17/17 06:00 Blood Pressure 141/64 04/17/17 06:00 O2 Sat by Pulse Oximetry (%) 96 04/16/17 20:36 Constitutional: Yes: No Distress, Other (drowsy) Cardiovascular: Yes: Regular Rate and Rhythm Respiratory: Yes: Diminished Gastrointestinal: Yes: Normal Bowel Sounds, Soft, Other (GT). No: Tenderness Edema: No Labs: CBC, BMP 04/10/17 06:25 04/10/17 06:25 Discharge Summary Reason For Visit: SEPSIS,PLEURAL EFFUSION ON LEFT Current Active Problems Acute respiratory failure with hypoxia (Acute) Anemia (Acute) Atelectasis of left lung (Acute) Hypokalemia (Acute) Pleural effusion on left (Acute) Pneumonia (Acute) Respiratory failure (Acute) Sepsis (Acute) UTI (urinary tract infection) (Acute) Urethral fistula (Acute) Urethral stricture (Acute) Hospital Course: ADMISSION HISTORY __ CHIEF COMPLAINT: Fever, hypotension and SOB x1day PCP: Dr Hutson ([facility]) HISTORY OF PRESENT ILLNESS: Unable to obtain hx from pt who is demented at baseline and currently non responsive. 86 yo M, DNR/DNI, with a significant PMHx of HTN, frequent UTI, CKD stage 3, DVT , and Alzheimer's dementia, with recent discharge 01/21/17 for aspiration PNA ( received vanc/zosyn), BIBEMS from [facility] today for fever, hypotension, and SOB. Pt was given IV fluids and had a moya catheter inserted prior to transfer from [place]. Pt is DNI/DNR but not DNH. Spoke with night nursing motor vehicle assembly supervisor - Magda ([phone]), who said the guardian for Mr Claudia Howard could not be reached prior to transfer today and a message was left for the guardianship agency ([phone], or [phone]). Since arriving at ER Pt was placed on NRB mask- tachycardic and tachypneic. Tmax 100.6 ER course was notable for: (1) Tachycardic- 105 and [id number]. Tmax 100.6 (2) Iv tylenol, ceftriaxone, azithromycin, vanc, zosyn (3) CXR-complete opacification of L lung lobe (pending formal read) (4) EKG- Sinus tachycardia at 108, normal QTC-434 (5) UA- LE 3+, WBC-631, RBC-456 (6)) LA-1.8, trops-0.03, Cr Kinase-53, VBG-7.5/32.2/51.8, INR-1.29, CBC, CMP Recent Travel: PAST MEDICAL HISTORY: HTN, frequent UTI, CKD stage 3, DVT, Alzheimer's dementia, Hospitalization Course-- Seen by Cardiology and Pulmonary - has left atelectasis-- started on IV antibiotics, Medrol IV , nebs, chest PT. He had discharge from urethra-- seen by Urology-has suprapubic catheter placed. Cardiology recommended Lopressor for rate control . Condition did not improve, pt's breathing is labored. Spoke with pt's guardian -- agreed for hospice Will dc pt to NH on hospice. Assessment/Plan ASSESSMENT: 1. Acute Hypoxic Respiratory Failure due to left lung atelectasis, possible aspiration pneumonia, resolved 2. 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 Sepsis Syndrome related to the above-noted presentations, resolved 4. Paroxysmal supraventricular tachycardia 5. Hypertensive cardiovascular disease 6. History of hematemesis referable to stress gastritis 7. Dementia post PEG insertion 8. Anemia PLAN: 1. Continue Lopressor 2. Continue Bronchodilators 3. Continue Fentayl patch Condition: Poor - Instructions Referrals: Jose Alejandro Hutson MD [Primary Care Provider] - Disposition[facility] - Home Medications Comprehensive Discharge Medication List: Ambulatory Orders Acetaminophen [Pain Relief] 650 mg GT Q6H PRN 04/04/17 Albuterol 0.083% Nebulizer Kim [Ventolin 0.083% Nebulizer Soln -] 1 neb NEB Q4H PRN 04/04/17 Amlodipine Besylate [Norvasc -] 10 mg GT DAILY 04/04/17 Clotrimazole/Betamet Diprop [Lotrisone -] 1 applic TP BID 04/04/17 Dextran 70/Hypromellose [Artificial Tears Eye Drops] 1 drop OU BID 04/04/17 Docusate Liquid [Colace Liquid -] 10 ml GT BID 04/04/17 Ipratropium 0.02% Nebulizer [Atrovent 0.02% Nebulizer -] 1 neb NEB Q4H PRN 04/04 Lorazepam [Ativan] 0.5 mg GT BID 04/04/17 Metoprolol Tartrate [Lopressor -] 25 mg GT BID 04/04/17 Mirtazapine 7.5 mg GT HS 04/04/17 Ranitidine HCl 20 mg GT HS 04/04/17 Silver Sulfadiazine 1% Top Cr [Silvadene -] 1 applic TP BID 04/04/17 Tamsulosin HCl 0.4 mg GT HS 04/04/17 Zinc Oxide 20% Topical Oint 454 gm NR ASDIR 04/04/17 FENTANYL 25mcg PATCH [DURAGESIC 25mcg PATCH -] 1 each TD Q72H #10 patch.[id number] MDD 1 04/17/17
--- NOTE | 2017-04-17 11:58 | PN ---
Progress Note, Physician Chief Complaint: Events noted Nonverbal History of Present Illness: Patient was seen and examined. Arousable. Chart was reviewed - Current Medication List Current Medications: Active Medications Acetaminophen (Tylenol Suppository -) 325 mg [place] Q6H PRN PRN Reason: FEVER Acetaminophen (Tylenol Oral Solution -) 325 mg PEG Q6H PRN PRN Reason: FEVER/PAIN Last Admin: 04/16/17 14:52 Dose: 325 mg Albuterol Sulfate (Ventolin 0.083% Nebulizer Soln -) 1 amp NEB Q6H PRN PRN Reason: SHORT OF BREATH/WHEEZING Morphine Sulfate 100 mg/ (Sodium Chloride) 100 mls @ 1 mls/hr IVPB TITR PIPPA; 1 MG/HR PRN Reason: Protocol Last Admin: 04/16/17 16:38 Dose: 1 mg/hr, 1 mls/hr Metoprolol Tartrate (Lopressor -) 25 mg PEG BID [facility] Last Admin: 04/17/17 10:02 Dose: 25 mg Polyethylene Glycol (Miralax (For Daily Use) -) 17 gm PEG DAILY PRN PRN Reason: CONSTIPATION Last Admin: 04/17/17 10:02 Dose: 17 grams Ranitidine HCl (Zantac Oral Solution -) 150 mg PEG DAILY [facility] Last Admin: 04/17/17 10:01 Dose: 150 mg - Objective Vital Signs: Vital Signs Temperature 98.3 F 04/17/17 10:00 Pulse Rate 83 04/17/17 10:00 Respiratory Rate 16 04/17/17 10:00 Blood Pressure 145/71 04/17/17 10:00 O2 Sat by Pulse Oximetry (%) 96 04/17/17 09:00 Neck: Yes: Supple Cardiovascular: Yes: Regular Rate and Rhythm, S1, S2 Respiratory: Yes: Diminished Gastrointestinal: Yes: Normal Bowel Sounds, Soft. No: Tenderness Edema: No Problem List - Problems (1) Acute respiratory failure with hypoxia Code(s): J96.01 - ACUTE RESPIRATORY FAILURE WITH HYPOXIA (2) Anemia Code(s): D64.9 - ANEMIA, UNSPECIFIED (3) Atelectasis of left lung Code(s): J98.11 - ATELECTASIS (4) Hypokalemia Code(s): E87.6 - HYPOKALEMIA (5) Sepsis Code(s): A41.9 - SEPSIS, UNSPECIFIED ORGANISM Qualifiers: Sepsis type: sepsis due to unspecified organism Qualified Code(s): A41.9 - Sepsis, unspecified organism (6) UTI (urinary tract infection) Code(s): N39.0 - URINARY TRACT INFECTION, SITE NOT SPECIFIED Qualifiers: Urinary tract infection type: site unspecified Hematuria presence: without hematuria Qualified Code(s): N39.0 - Urinary tract infection, site not specified (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 (8) Aspiration pneumonia Code(s): J69.0 - PNEUMONITIS DUE TO INHALATION OF FOOD AND VOMIT Qualifiers: Aspiration pneumonia type: unspecified Laterality: right Lung location: lower lobe of lung Qualified Code(s): J69.0 - Pneumonitis due to inhalation of food and vomit (9) Dementia Code(s): F03.90 - UNSPECIFIED DEMENTIA WITHOUT BEHAVIORAL DISTURBANCE Qualifiers: Dementia type: Alzheimer's disease Alzheimer's disease onset: unspecified onset Dementia behavioral disturbance: without behavioral disturbance Qualified Code(s): G30.9 - Alzheimer's disease, unspecified; F02.80 - Dementia in other diseases classified elsewhere without behavioral disturbance; F02.80 - Dementia in other diseases classified elsewhere without behavioral disturbance; F02.80 - Dementia in other diseases classified elsewhere without behavioral disturbance (10) Paroxysmal supraventricular tachycardia seen on clinical research monitor Code(s): I47.1 - SUPRAVENTRICULAR TACHYCARDIA Assessment/Plan 1. Acute Hypoxic Respiratory Failure due to left atelectasis 2. UTI with underlying urethral fistula 3. Sepsis 4. Paroxysmal supraventricular tachycardia currently in sinus rhythm 5. History of hematemesis referable to stress gastritis with possible aspiration pneumonia 6. HTN 7. Dementia post PEG PLAN: 1. Continue Lopressor 2. Aspiration precautions 3. DVT and GI prophylaxis 4. Morphine Raj Mann MD
[2017-04-17] MEDS ORDERED: FENTANYL PATCH WASTE TD PRN (12:18)
[2017-04-17] MEDS ORDERED: fentaNYL 25mcg/hr PATCH.TD72 TD SCH (12:30)
--- NOTE | 2017-04-17 19:49 | HOSP ---
Subjective - Review of Symptoms Events since last encounter: Hospitalist Encounter Notified by RN that the PEG dislodged. Arrived to bedside, PEG not dislodged, however large tear noted TIP, PEG will need to be replaced Discussed with Dr. Rivera earlier Physical Examination Vital Signs: Vital Signs Temperature 98.1 F 04/17/17 18:29 Pulse Rate 80 04/17/17 18:29 Respiratory Rate 16 04/17/17 18:29 Blood Pressure 133/64 04/17/17 18:29 O2 Sat by Pulse Oximetry (%) 96 04/17/17 09:00 Labs: CBC, BMP 04/10/17 06:25 04/10/17 06:25
[2017-04-18] MEDS ORDERED: morphine SULFATE 4 MG/ML VIAL IVPUSH PRN (05:05)
[2017-04-18] MEDS ORDERED: morphine SULFATE 4 MG/ML VIAL ONE (05:10)
[2017-04-18] MEDS: RANITIDINE HCL 150 MG/10 ML UNIT-DOSE PEG SCH (10:48)
[2017-04-18] MEDS: METOPROLOL TARTRATE 25 MG TABLET (FP) PEG SCH (10:49)
--- NOTE | 2017-04-18 11:09 | PN ---
Progress Note (short form) - Note Progress Note: Pt examined Events noted pt has slight breakage at tip of peg tube Seen by GI - Dr Rivera -- assessed the GT-- said that it can be used without any problems Pt comfortable Vital Signs - 24 hr 04/17/17 04/17/17 04/17/17 14:41 18:29 21:00 Temperature 98.3 F 98.1 F Pulse Rate 66 80 Respiratory 16 16 16 Rate Blood Pressure 113/52 133/64 O2 Sat by Pulse 96 Oximetry (%) 04/17/17 04/18/17 04/18/17 22:00 05:00 09:00 Temperature 99.8 F H 97.8 F Pulse Rate 82 130 H Respiratory 16 28 H 28 H Rate Blood Pressure 151/77 109/67 O2 Sat by Pulse 96 93 L Oximetry (%) 04/18/17 10:00 Temperature 97.7 F Pulse Rate 94 H Respiratory 16 Rate Blood Pressure 124/73 O2 Sat by Pulse Oximetry (%) Current Medications Generic Name Dose Route Start Last Admin Trade Name Freq PRN Reason Stop Dose Admin Acetaminophen 325 mg 04/05/17 10:59 Tylenol Suppository - NC Q6H PRN FEVER Acetaminophen 325 mg 04/06/17 11:54 04/16/17 14:52 Tylenol Oral Solution - PEG 325 mg Q6H PRN Administration FEVER/PAIN Albuterol Sulfate 1 amp 04/16/17 09:14 04/18/17 05:15 Ventolin 0.083% Nebulizer Soln - NEB 1 amp Q6H PRN Administration SHORT OF BREATH/WHEEZING Fentanyl 1 patch 04/17/17 12:30 04/17/17 14:52 Duragesic 25mcg Patch - TD 04/24/17 12:18 1 patch Q72H PIPPA Administration Metoprolol Tartrate 25 mg 04/07/17 12:15 04/18/17 10:49 Lopressor - PEG 25 mg BID [facility] Administration Miscellaneous 1 each 04/17/17 12:18 Duragesic Patch Waste TD PRN PRN PAIN Morphine Sulfate 1 mg 04/18/17 05:05 04/18/17 05:08 Morphine Sulfate IVPUSH 1 mg Q3H PRN Administration PAIN LEVEL 1-5 Polyethylene Glycol 17 gm 04/15/17 11:45 04/17/17 10:02 Miralax (For Daily Use) - PEG 17 grams DAILY PRN Administration CONSTIPATION Ranitidine HCl 150 mg 04/07/17 12:15 04/18/17 10:48 Zantac Oral Solution - PEG 150 mg DAILY [facility] Administration S1 S2 RRR Lungs decraesed Abd- soft, NT Behind ears-- 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 A/P Atelectasis Dementia Failure to thrive -- ok to dc pt back to NH -- may apply Santyl to ears Problem List - Problems (1) Acute respiratory failure with hypoxia Code(s): J96.01 - ACUTE RESPIRATORY FAILURE WITH HYPOXIA (2) Atelectasis of left lung Code(s): J98.11 - ATELECTASIS (3) Pneumonia Code(s): J18.9 - PNEUMONIA, UNSPECIFIED ORGANISM (4) Sepsis Code(s): A41.9 - SEPSIS, UNSPECIFIED ORGANISM Qualifiers: Sepsis type: sepsis due to unspecified organism Qualified Code(s): A41.9 - Sepsis, unspecified organism (5) Dementia Code(s): F03.90 - UNSPECIFIED DEMENTIA WITHOUT BEHAVIORAL DISTURBANCE Qualifiers: Dementia type: Alzheimer's disease Alzheimer's disease onset: unspecified onset Dementia behavioral disturbance: without behavioral disturbance Qualified Code(s): G30.9 - Alzheimer's disease, unspecified; F02.80 - Dementia in other diseases classified elsewhere without behavioral disturbance; F02.80 - Dementia in other diseases classified elsewhere without behavioral disturbance; F02.80 - Dementia in other diseases classified elsewhere without behavioral disturbance (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
--- NOTE | 2017-04-18 11:13 | PN ---
Progress Note (short form) - Note Progress Note: PULMONARY APPEARS COMFORTABLE ON MS DRIP HAVE DISCONTINUED IV ANTIBIOTICS WILL GO TO SNF ON FENTANYL PATCH PER NURSE PLEASE CALL ROSITA TOLEDO MD Problem List - Problems (1) Acute respiratory failure with hypoxia Code(s): J96.01 - ACUTE RESPIRATORY FAILURE WITH HYPOXIA (2) Atelectasis of left lung Code(s): J98.11 - ATELECTASIS (3) Pleural effusion on left Code(s): J90 - PLEURAL EFFUSION, NOT ELSEWHERE CLASSIFIED (4) Pneumonia Code(s): J18.9 - PNEUMONIA, UNSPECIFIED ORGANISM (5) Respiratory failure Code(s): J96.90 - RESPIRATORY FAILURE, UNSP, UNSP W HYPOXIA OR HYPERCAPNIA (6) Sepsis Code(s): A41.9 - SEPSIS, UNSPECIFIED ORGANISM Qualifiers: Qualified Code(s): A41.9 - Sepsis, unspecified organism (7) UTI (urinary tract infection) Code(s): N39.0 - URINARY TRACT INFECTION, SITE NOT SPECIFIED Qualifiers: Qualified Code(s): N39.0 - Urinary tract infection, site not specified (8) Aspiration pneumonia Code(s): J69.0 - PNEUMONITIS DUE TO INHALATION OF FOOD AND VOMIT Qualifiers: Qualified Code(s): J69.0 - Pneumonitis due to inhalation of food and vomit
--- NOTE | 2017-04-18 11:13 | PN ---
Progress Note, Physician History of Present Illness: Arousable, PEG tube malfunction and enteral feeds held. - Current Medication List Current Medications: Active Medications Acetaminophen (Tylenol Suppository -) 325 mg [place] Q6H PRN PRN Reason: FEVER Acetaminophen (Tylenol Oral Solution -) 325 mg PEG Q6H PRN PRN Reason: FEVER/PAIN Last Admin: 04/16/17 14:52 Dose: 325 mg Albuterol Sulfate (Ventolin 0.083% Nebulizer Soln -) 1 amp NEB Q6H PRN PRN Reason: SHORT OF BREATH/WHEEZING Last Admin: 04/18/17 05:15 Dose: 1 amp Fentanyl (Duragesic 25mcg Patch -) 1 patch TD Q72H [facility] Stop: 04/24/17 12:18 Last Admin: 04/17/17 14:52 Dose: 1 patch Metoprolol Tartrate (Lopressor -) 25 mg PEG BID [facility] Last Admin: 04/18/17 10:49 Dose: 25 mg Miscellaneous (Duragesic Patch Waste) 1 each TD PRN PRN PRN Reason: PAIN Morphine Sulfate (Morphine Sulfate) 1 mg IVPUSH Q3H PRN PRN Reason: PAIN LEVEL 1-5 Last Admin: 04/18/17 05:08 Dose: 1 mg Polyethylene Glycol (Miralax (For Daily Use) -) 17 gm PEG DAILY PRN PRN Reason: CONSTIPATION Last Admin: 04/17/17 10:02 Dose: 17 grams Ranitidine HCl (Zantac Oral Solution -) 150 mg PEG DAILY [facility] Last Admin: 04/18/17 10:48 Dose: 150 mg - Objective Vital Signs: Vital Signs Temperature 97.7 F 04/18/17 10:00 Pulse Rate 94 H 04/18/17 10:00 Respiratory Rate 16 04/18/17 10:00 Blood Pressure 124/73 04/18/17 10:00 O2 Sat by Pulse Oximetry (%) 93 L 04/18/17 09:00 Constitutional: Yes: No Distress, Calm, Thin Neck: Yes: Supple Cardiovascular: Yes: Regular Rate and Rhythm Respiratory: Yes: Regular, Diminished, On Nasal O2 Gastrointestinal: Yes: Soft, Hypoactive Bowel Sounds Edema: No Labs: CBC, BMP 04/10/17 06:25 04/10/17 06:25 INR, PTT INR 1.29 (0.82-1.09) H 04/04/17 02:44 Problem List - Problems (1) Acute respiratory failure with hypoxia Code(s): J96.01 - ACUTE RESPIRATORY FAILURE WITH HYPOXIA (2) Atelectasis of left lung Code(s): J98.11 - ATELECTASIS (3) Hypokalemia Code(s): E87.6 - HYPOKALEMIA (4) Sepsis Code(s): A41.9 - SEPSIS, UNSPECIFIED ORGANISM Qualifiers: Sepsis type: sepsis due to unspecified organism Qualified Code(s): A41.9 - Sepsis, unspecified organism (5) UTI (urinary tract infection) Code(s): N39.0 - URINARY TRACT INFECTION, SITE NOT SPECIFIED Qualifiers: Urinary tract infection type: site unspecified Hematuria presence: without hematuria Qualified Code(s): N39.0 - Urinary tract infection, site not specified (6) Aspiration pneumonia Code(s): J69.0 - PNEUMONITIS DUE TO INHALATION OF FOOD AND VOMIT Qualifiers: Aspiration pneumonia type: unspecified Laterality: right Lung location: lower lobe of lung Qualified Code(s): J69.0 - Pneumonitis due to inhalation of food and vomit (7) Paroxysmal supraventricular tachycardia seen on bus monitor Code(s): I47.1 - SUPRAVENTRICULAR TACHYCARDIA (8) Stress ulcer of stomach Code(s): K25.9 - GASTRIC ULCER, UNSP ACUTE OR CHRONIC, W/O HEMOR OR PERF Assessment/Plan 1. Acute Hypoxic Respiratory Failure due to left lung atelectasis, possible aspiration pneumonia 2. 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 Sepsis Syndrome related to the above-noted presentation 4. Paroxysmal supraventricular tachycardia currently in sinus rhythm 5. Hypertensive cardiovascular disease 6. History of hematemesis referable to stress gastritis 7. Dementia post PEG insertion for replacement 8. Anemia PLAN: 1. Continue Lopressor 25 bid 2. Antibiotic course completed per the primary team 3. Management of the above-noted left lung atelectasis as per the pulmonary team , continuation of Bronchodilators, O2 to keep SpO2 >90%, Aspiration precautions , DVT and GI prophylaxis, Fentanyl and MSO4 for comfort, replace PEG tube
--- NOTE | 2017-04-18 11:37 | CON.GI ---
Consult Consult Specialty:: GI Reason for Consultation:: G-tube dysfunction - History of Present Illness History of Present Illness: Chart reviewed. Called for dislodged overnight G-tube. On exam, the G-tube is in place and secured. It appears to be an original and not replacement G-tube. No obvious abnormalities with the track and the skin. A replacement y-port noted. The G- tube was flashed and aspirated. It is old, but fully functional at this time. No need for replacement. Continue to use it for nutrition, medications, and hydration. Maintain aspiration precautions. Call GI PRN. Disucussed with pt's nurse. - Past Medical History [employer]: Yes: Dementia Cardio/Vascular: Yes: HTN, Hyperlipdemia - Alcohol/Substance Use Hx Alcohol Use: No - Smoking History Smoking history: Never smoked Have you smoked in the past 12 months: No Home Medications - Allergies Allergies/Adverse Reactions: Allergies Allergy/AdvReac Type Severity Reaction Status Date / Time No Known Allergies Allergy Verified 02/13/17 04:40 - Home Medications Home Medications: Ambulatory Orders Acetaminophen [Pain Relief] 650 mg GT Q6H PRN 04/04/17 Albuterol 0.083% Nebulizer Kim [Ventolin 0.083% Nebulizer Soln -] 1 neb NEB Q4H PRN 04/04/17 Amlodipine Besylate [Norvasc -] 10 mg GT DAILY 04/04/17 Clotrimazole/Betamet Diprop [Lotrisone -] 1 applic TP BID 04/04/17 Dextran 70/Hypromellose [Artificial Tears Eye Drops] 1 drop OU BID 04/04/17 Docusate Liquid [Colace Liquid -] 10 ml GT BID 04/04/17 Ipratropium 0.02% Nebulizer [Atrovent 0.02% Nebulizer -] 1 neb NEB Q4H PRN 04/04 Lorazepam [Ativan] 0.5 mg GT BID 04/04/17 Metoprolol Tartrate [Lopressor -] 25 mg GT BID 04/04/17 Mirtazapine 7.5 mg GT HS 04/04/17 Ranitidine HCl 20 mg GT HS 04/04/17 Silver Sulfadiazine 1% Top Cr [Silvadene -] 1 applic TP BID 04/04/17 Tamsulosin HCl 0.4 mg GT HS 04/04/17 Zinc Oxide 20% Topical Oint 454 gm NR ASDIR 04/04/17 FENTANYL 25mcg PATCH [DURAGESIC 25mcg PATCH -] 1 each TD Q72H #10 patch.td72 MDD 1 04/17/17 Physical Exam-GI Vital Signs: Vital Signs Temperature 97.7 F 04/18/17 10:00 Pulse Rate 94 H 04/18/17 10:00 Respiratory Rate 16 04/18/17 10:00 Blood Pressure 124/73 04/18/17 10:00 O2 Sat by Pulse Oximetry (%) 93 L 04/18/17 09:00 Labs: CBC, BMP 04/10/17 06:25 04/10/17 06:25 INR, PTT INR 1.29 (0.82-1.09) H 04/04/17 02:44
[2017-04-18] MEDS ORDERED: COLLAGENASE CLOSTRIDIUM HIST. 30 GRAMS TUBE TP SCH (12:00)
[2017-04-18 14:38] VITALS: BP 140/74; PULSE 81; TEMP 97.4
== END 2017-04-18 15:37 | DRG 871 ==
LOC: JER 02:11 → JERBED 03:49 → J4W 13:31 → J7W 04-10 20:18
PROVIDERS: ADMIT Internal Medicine; ATTEND Internal Medicine
PROC: 3E0G76Z Introduction of Nutritional Substance into Upper GI, Via Natural or Artificial Opening (ICD-10-PCS; principal; 2017-04-04)
PROC: 0T9B30Z Drainage of Bladder with Drainage Device, Percutaneous Approach (ICD-10-PCS; 2017-04-18)
DX: A41.9 Sepsis, unspecified organism (principal); J69.0 Pneumonitis due to inhalation of food and vomit; J96.01 Acute respiratory failure with hypoxia; R64 Cachexia; N39.0 Urinary tract infection, site not specified; J98.11 Atelectasis; Z68.1 Body mass index [BMI] 19.9 or less, adult; N36.0 Urethral fistula; I47.1 Supraventricular tachycardia; Z43.1 Encounter for attention to gastrostomy; Z66 Do not resuscitate; Z87.440 Personal history of urinary (tract) infections; Z86.718 Personal history of other venous thrombosis and embolism; G30.9 Alzheimer's disease, unspecified; F02.80 Dementia in other diseases classified elsewhere, unspecified severity, without behavioral disturbance, psychotic disturbance, mood disturbance, and anxiety; I12.9 Hypertensive chronic kidney disease with stage 1 through stage 4 chronic kidney disease, or unspecified chronic kidney disease; N18.3 Chronic kidney disease, stage 3 (moderate); F25.9 Schizoaffective disorder, unspecified; Z86.73 Personal history of transient ischemic attack (TIA), and cerebral infarction without residual deficits; R65.20 Severe sepsis without septic shock; N40.0 Benign prostatic hyperplasia without lower urinary tract symptoms; E87.6 Hypokalemia; N49.2 Inflammatory disorders of scrotum; D64.9 Anemia, unspecified; K25.9 Gastric ulcer, unspecified as acute or chronic, without hemorrhage or perforation; R62.7 Adult failure to thrive; N35.9 Urethral stricture, unspecified
CPT/HCPCS: 36415; 36430; 36600; 51102; 71045-TC-FY; 76380-TC; 76870-TC; 80053; 81003; 81015; 82375; 82550; 82803; 82962; 83050; 83605; 83735; 84100; 84484; 85025; 85610; 85730; 86850; 86900; 86901; 86922; 87040; 87086; 87186; 87899; 93005; 93010; 94640; 99285-25; A4358; C1729; C1769; J1644; P9038; P9058